=== PATIENT | female | born 1945 | race Caucasian/White ===

== ENCOUNTER 2024-06-15 11:03 | Inpatient (IN) | payer BC, MEDICARE, OTHER ==
[~2024-06-15] VITALS: Ht 162.6 cm; Wt 122.2 kg
[2024-06-15] MEDS: ONDANSETRON HCL 4 MG/2 ML VIAL IV ONE (11:53)
--- NOTE | 2024-06-15 11:55 | ED.PDOC ---
Back pain HPI HPI Comments 79Y F with PMHx HTN, CKD, and hypothyroidism presents to ED for chief complaint back pain. Per pt's son, pt has L3-L5 deterioration and collapse as well as rt hip and rt knee arthritis, and torn ligaments in the rt knee. Pt denies fecal for urinary incontinence. Pt admits to constipation. Pt is being followed by Dr. Worthington and had an appt last week where she was told to go to the ER if the back pain became unbearable. Pt is currently taking [place] but has not felt relief, in fact she states the pain is more severe. Pt had MRI done last month. Per pt, Dr. Worthington's plan is to do back surgery. No known allergies. Chief Complaint: Back Pain Time Seen by MD: 11:36 Reviewed Notes: Medications, Allergies Allergies: Coded Allergies: NO KNOWN ALLERGIES (Unverified , 06/15/24) Information Source: Patient, Relative (son) Mode of Arrival: Wheelchair Timing: Weeks Duration: Since onset Location of Back pain: (B) Lower back Severity: Severe Quality: Sharp Onset: Other Circumstance: Other History of: Chronic Back Pain Modifying Factors: Nothing Associated signs and symptoms: Numbness:(R) Foot, Numbness:(L) Foot, Numbness:(R) Leg, Numbness:(L) Leg Past Medical History PAST MEDICAL HISTORY: CKF, HTN, Thyroid Surgical History: Unknown CADD OPERATOR History: No Pertinent CADD OPERATOR History Family History Family History: Unknown Social History Smoker: Non-Smoker Alcohol: Denies ETOH Use Drugs: Denies Drug Use Lives In: Home Constitutional: denies: chills, diaphoresis, fatigue, fever, malaise, sweats, weakness, others EENTM: denies: blurred vision, double vision, ear bleeding, ear discharge, ear drainage, ear pain, ear ringing, eye pain, eye redness, hearing loss, mouth pain, mouth swelling, nasal discharge, nose bleeding, nose congestion, nose pain, photophobia, tearing, throat pain, throat swelling, voice changes, others Respiratory: denies: cough, hemoptysis, orthopnea, SOB at rest, shortness of breath, SOB with excertion, stridor, wheezing, others Cardiovascular: denies: chest pain, dizzy spells, diaphoresis, Dyspnea on exertion, edema, irregular heart beat, left arm pain, lightheadedness, palpitations, PND, syncope, others Gastrointestinal: reports: constipated; denies: abdomen distended, abdominal pain, blood streaked bowels, diarrhea, dysphagia, difficulty swallowing, hematemesis, melena, nausea, poor appetite, poor fluid intake, rectal bleeding, rectal pain, vomiting, others Genitourinary: denies: abnormal vagina bleeding, burning, dyspareunia, dysuria, flank pain, frequency, hematuria, incontinence, pain, , vagina discharge, urgency, others Neurological: reports: left sided numbness, right sided numbness; denies: dizziness, fainting, headache, left sided weakness, numbness, paresthesia, pre- existing deficit, right sided weakness, seizure, speech problems, tingling, tremors, weakness, others Musculoskeletal: reports: back pain, joint pain (hips, rt knee); denies: gout, joint swelling, muscle pain, muscle stiffness, neck pain, others Integumetry: denies: bruises, change in color, change in hair/nails, dryness, laceration, lesions, lumps, rash, wounds, others Allergic/Immunocompromised: denies: Difficulty Healing, Frequent Infections, Hives, Itching, others Hematologic/Lymphatic: denies: anemia, blood clots, easy bleeding, easy bruising, swollen glands, others Endocrine: denies: excessive hunger, excessive sweating, excessive thirst, excessive urination, flushing, intolerance to cold, intolerance to heat, unexplained weight gain, unexplained weight loss, others Psychiatric: denies: anxiety, bipolar disorder, depression, hopeless, panic disorder, schizophrenia, sleepless, suicidal, others All Other Systems: Reviewed and Negative Physical Exam General Appearance: Mild Distress HEENT: PERRL/EOMI Neck: Full Range of Motion, Normal Inspection, Supple Respiratory: Lungs Clear, No Accessory Muscle Use, No Respiratory Distress, Normal Breath Sounds Cardiovascular: No Edema, No JVD, Regular Rate/Rhythm Breast Exam: Deferred Gastrointestinal: Non Tender, Soft Genitalia: Deferred Pelvic: Deferred Rectal: Deferred Extremities: Leg edema, Normal inspection, Normal range of motion, Non-tender, Pedal edema, Other (Lumbar midline and paraspinal tenderness to palpation. Exquisite pain with movement.) Neurologic: Alert, No Motor Deficits, Normal Affect, Normal Mood, No Sensory Deficits Cerebellar Function: NOT DONE Reflexes: NOT DONE Skin: Dry, Normal Color, Warm Peripheral Pulses: 2+ dorsalis pedis (R), 2+ dorsalis pedis (L) Lymphatic: NOT DONE Was a procedure done? Was a procedure done?: No Back Pain Differential Dx Differential Diagnosis: Musculoskeletal Pain, Other (Disc disease, other neuropathic pain, among others) X-Ray, Labs, Meds, VS Vital Signs Date Time Temp Pulse Resp B/P (MAP) Pulse Ox O2 Delivery O2 Flow Rate FiO2 06/15/24 19:40 72 19 96 Nasal Cannula* 2 28 06/15/24 19:40 97.9 72 19 127/98 (108) 96 97.9 06/15/24 18:00 64 14 131/56 (81) 97 06/15/24 16:00 64 16 106/57 (73) 96 06/15/24 15:22 77 14 97 Room Air* 0 21 06/15/24 15:22 77 16 121/68 (85) 97 06/15/24 14:04 80 20 113/65 06/15/24 14:00 98.2 92 20 111/59 (76) 96 98.2 06/15/24 13:36 82 16 112/62 06/15/24 13:00 76 16 98 Room Air* 0 21 06/15/24 12:33 74 16 103/52 06/15/24 11:57 84 20 106/61 06/15/24 11:57 84 20 106/61 (76) 96 06/15/24 11:29 98.9 86 19 113/46 (68) 98 06/15/24 11:21 89 Lab Test 06/15/24 19:55 06/15/24 11:54 Range/Units Urine Color Light-yellow Yellow Urine Clarity Clear Clear Urine pH 6.0 5.0-9.0 Urine Specific [place] 1.012 1.001-1.035 Urine Protein Negative Negative Urine Ketones Negative Negative Urine Blood Negative Negative /uL Urine Nitrite Negative Negative Urine Bilirubin Negative Negative Urine Urobilinogen Normal Negative mg/dL Urine Leukocyte Esterase Negative Negative /uL Urine RBC <1 0 - 4 /hpf Urine WBC 1 0 - 5 /hpf Urine Squamous Epithelial Cells Few <5 /hpf Urine Bacteria None seen None Seen /hpf Urine Glucose Normal Normal mg/dL White Blood Count 11.5 H 4.4-10.8 10^3/uL Red Blood Count 4.33 4.0-5.20 10^6/uL Hemoglobin 12.2 12.2-16.2 g/dL Hematocrit 37.2 36.0-46.0 % Mean Corpuscular Volume 85.9 80.0-100.0 fL Mean Corpuscular Hemoglobin 28.3 28.0-32.0 pg Mean Corpuscular Hemoglobin Concent 32.9 32.0-36.0 g/dL Red Cell Distribution Width 14.4 H 11.8-14.3 % Platelet Count 293 140-450 10^3/uL Mean Platelet Volume 7.8 6.9-10.8 fL Neutrophils (%) (Auto) 83.4 H 37.0-80.0 % Lymphocytes (%) (Auto) 8.1 L 10.0-50.0 % Monocytes (%) (Auto) 7.0 0.0-12.0 % Eosinophils (%) (Auto) 0.9 0.0-7.0 % Basophils (%) (Auto) 0.6 0.0-2.0 % Neutrophils # (Auto) 9.6 H 1.6-8.6 10 ^3/uL Lymphocytes # (Auto) 0.9 0.4-5.4 10 ^3/uL Monocytes # (Auto) 0.8 0-1.3 10 ^3/uL Eosinophils # (Auto) 0.1 0-0.8 10 ^3/uL Basophils # (Auto) 0.1 0-0.2 10 ^3/uL Nucleated Red Blood Cells 0.0 % Sodium Level 137 136-145 mmol/L Potassium Level 3.5 3.5-5.1 mmol/L Chloride Level 101 98-107 mmol/L Carbon Dioxide Level 26 20-31 mmol/L Anion Gap 10 5-15 Blood Urea Nitrogen 31 H 9-23 mg/dL Creatinine 1.18 H 0.550-1.02 mg/dL Glomerular Filtration Rate Calc 47 >90 mL/min BUN/Creatinine Ratio 26.3 H 10.0-20.0 Serum Glucose 129 H 74-106 mg/dL Calcium Level 11.5 H 8.7-10.4 mg/dL Current Medications Medications (Trade) Dose Ordered Sig/Nalini Route Start Time Stop Time Status Last Admin Morphine Sulfate 4 mg ONCE ONCE IV 06/15/24 11:45 06/15/24 11:46 DC 06/15/24 11:57 Ondansetron HCl (Zofran) 4 mg ONCE ONCE IV 06/15/24 11:45 06/15/24 11:46 DC 06/15/24 11:53 Hydromorphone HCl (Dilaudid Injection) 1 mg ONCE ONCE IV 06/15/24 13:00 06/15/24 13:01 DC 06/15/24 13:36 Methocarbamol (Robaxin) 1,000 mg ONCE ONCE PO 06/15/24 14:00 06/15/24 14:40 DC 06/15/24 14:00 X-Ray, Labs, Meds, VS Comment 79Y F with PMHx HTN, CKD, hypothyroidism chronic back pain due to presumed degenerative disc disease complaining of severe back pain despite taking L[place] and other pain medications at home. Patient was advised by her back surgeon to come to the ER if pain persisted. Vitals unremarkable Exam remarkable for lumbar midline and paraspinal tenderness and severe pain with movement CBC remarkable for WBC 11.5, basic metabolic panel remarkable for BUN 31, creatinine 1.18, calcium 11.5, no other abnormalities of acute significance Patient treated with the following in the ED: Morphine 4 mg IV, Zofran 4 mg IV, Dilaudid 1 mg IV, Robaxin 1 g p.o. On re-evaluation, patient states at rest her pain has improved, but she is still experiencing severe pain with movement. Plan is to admit the patient for pain control and evaluation by Dr. Worthington. Case discussed with FRAN Rothman, who will admit the patient. MRI of the lumbar spine was ordered for the morning. Time of 1ST Reevaluation: 12:06 Reevaluation 1ST: Unchanged Time of 2ND Reevaluation: 13:46 Reevaluation 2ND: Improved Patient Education/Counseling: Diagnosis, Treatment Family Education/Counseling: Diagnosis, Treatment Departure 1 Departure Time of Disposition: 13:46 Impression: Primary Impression: Intractable back pain Disposition: 09 ADMITTED INPATIENT Admit to: Med Surg Condition: Fair Critical Care Note Critical Care Time?: No Stability Stability form required: No Heart Score Heart Score: Heart Score Response (Comments) Value History N/A 0 EKG N/A 0 Age N/A 0 Risk Factors N/A 0 Troponin N/A 0 Total 0 I personally scribed for JUANY BRO MD ([email or web address]) on 06/15/24 at 11:55. Electronically submitted by Annie Last ([email or web address]). JUANY BOR MD Jun 15, 2024 11:55
[2024-06-15] MEDS: MORPHINE SULFATE 4 MG/ML SYR/VIAL IV ONE (11:57)
[2024-06-15 12:07] LABS: Basophils # (auto) 0.1 10 ^3/uL (0-0.2); Basophils % (auto) 0.6 % (0.0-2.0); Eosinophils # (auto) 0.1 10 ^3/uL (0-0.8); Eosinophils % (auto) 0.9 % (0.0-7.0); Hematocrit 37.2 % (36.0-46.0); Hemoglobin 12.2 g/dL (12.2-16.2); Lymphocytes # (auto) 0.9 10 ^3/uL (0.4-5.4); Lymphocytes % (auto) 8.1 % (10.0-50.0); Mean Corpuscular Hemoglobin 28.3 pg (28.0-32.0); Mean Corpuscular Hgb Conc. 32.9 g/dL (32.0-36.0); Mean Corpuscular Volume 85.9 fL (80.0-100.0); Monocytes # (auto) 0.8 10 ^3/uL (0-1.3); Neutrophils # (auto) 9.6 10 ^3/uL (1.6-8.6); Neutrophils % (auto) 83.4 % (37.0-80.0); Platelet Count (auto) 293 10^3/uL (140-450); Red Blood Cells 4.33 10^6/uL (4.0-5.20); Red Cell Distribution Width 14.4 % (11.8-14.3); White Blood Cell 11.5 10^3/uL (4.4-10.8)
[2024-06-15 12:19] LABS: Chloride 101 mmol/L (98-107); Potassium 3.5 mmol/L (3.5-5.1); Sodium 137 mmol/L (136-145)
[2024-06-15 12:20] LABS: Anion Gap 10 (5-15); Carbon Dioxide 26 mmol/L (20-31)
[2024-06-15 12:21] LABS: Calcium 11.5 mg/dL (8.7-10.4)
[2024-06-15 12:25] LABS: BUN/Creatinine Ratio 26.3 (10.0-20.0); Blood Urea Nitrogen 31 mg/dL (9-23); Glucose 129 mg/dL (74-106)
[2024-06-15 13:00] VITALS: PULSE 76; RESP 16; O2SAT 98
[2024-06-15] MEDS: HYDROmorphone HCL 2 MG/ML VL/or syr IV ONE ×2 (13:36→21:44)
[2024-06-15] MEDS: METHOCARBAMOL 500 MG TAB PO ONE (14:00)
[2024-06-15 15:22] VITALS: PULSE 77; RESP 14; O2SAT 97
[2024-06-15 19:40] VITALS: PULSE 72; RESP 19; O2SAT 96
[2024-06-15 20:01] LABS: Urine Bacteria None Seen /hpf (None Seen)
[2024-06-15 20:08] LABS: Urine Blood Negative /uL (Negative); Urine Clarity Clear (Clear); Urine Color Light-Yellow (Yellow); Urine Protein, UAD Negative (Negative); Urine Specific Gravity 1.012 (1.001-1.035); Urine Urobilinogen Normal (Negative); Urine WBC 1 /hpf (0 - 5)
[2024-06-15] MEDS ORDERED: ACETAMINOPHEN 325 MG TAB PO PRN (21:45)
[2024-06-15] MEDS ORDERED: ONDANSETRON HCL 4 MG/2 ML VIAL IV PRN (21:45)
[2024-06-15] MEDS ORDERED: MORPHINE SULFATE INJ 2 MG/ml SYRG IV PRN (21:45)
[2024-06-15 23:21] VITALS: BP 126/63; PULSE 80; TEMP 98.3; O2SAT 99
[2024-06-15 23:44] VITALS: PULSE 80; RESP 18; O2SAT 99
[2024-06-16] VITALS (7 sets, daily range): BP systolic 96–132; BP diastolic 55–66; PULSE 71–91; RESP 15–20; TEMP 97.5–98.4; O2SAT 96–99
--- NOTE | 2024-06-16 00:51 | DVHHP2 ---
Admitting Diagnosis: Intractable back pain History of Present Illness History Source: Patient Exam Limitations: No limitations HPI Mrs. Pastora Briones is an 79 year old female with a history of HTN, CKD, and hypothyroidism presents with a chief complaint of back pain. Reported in ED by patient son, patient has a L3-L5 deterioration and collapse as well as rt hip and rt knee arthritis, and torn ligaments in the rt knee. Pt denies fecal or urinary incontinence. Patient admits to constipation. Patient reports she is being followed by Dr. Worthington and had an appointment last week where she was told to go to the ER if the back pain became unbearable. Pt is currently taking [place] but has not felt relief, in fact she states the pain is more severe. Dr. Worthington was contacted and requested MRI lumbar spine will see patient in am. Patient denies fevers, chills, abdominal pain, diarrhea, lower extremity numbness, urinary incontinence. Home Meds Reported Medications Latanoprost (LATANOPROST) 0.005 % Tracy, 1 DROP EACHEYE QPM, #7.5 ML 3 Refills 06/16/24 Senna (Senokot) 8.6 Mg Tab, 8.6 MG PO DAILY@DINNER, TAB 06/16/24 Hydrocodone-Acetaminophen (Hydrocodone Bitartrate/AC 7.5-325 mg) 1 Tab Tab, 1 TAB PO TID, TAB 06/16/24 Trazodone Hcl (Trazodone Hcl) 50 Mg Tab, 50 MG PO HS, MG 06/16/24 Pantoprazole Sodium Sesquihydr (Protonix) 40 Mg Tab, 40 MG PO DAILY, #30 TAB 06/16/24 Sertraline Hcl (Sertraline Hcl) 50 Mg Tab, 100 MG PO DAILY for 30 Days, MG 06/16/24 Gabapentin (Gabapentin) 300 Mg Cap, 300 MG PO TID for 30 Days, MG 06/16/24 Furosemide (Furosemide) 20 Mg Tab, 20 MG PO DAILY for 30 Days, MG 06/16/24 Triamterene (Triamterene) 50 Mg Cap, 50 MG PO DAILY, CAP 06/16/24 Levothyroxine Sodium (Levothyroxine Sodium) 75 Mcg Tab, 1 TAB PO DAILY, #30 TAB 5 Refills 06/16/24 Past Medical History Cardiac: HTN Pulmonary: No pertinent Hx Central Nervous System: No pertinent Hx GI: No pertinent Hx Hemotology/Oncology: No pertinent Hx Hepatobiliary: No pertinent Hx Psychiatric: No pertinent Hx Musculoskeletal: No pertinent Hx Rheumotologic: No pertinent Hx Infectious Disease: No peritnent Hx ENT: No pertinent Hx Renal/: CKD Endocrine: Hypothyroidism Dermatology: No pertinent Hx Others L3-L5 deterioration and collapse as well as rt hip and rt knee arthritis, and torn ligaments in the rt knee Smoker: No Hx (Negative) Alocohol: None Drugs: None Domestic Violence: Neg Review of Systems Constitutional: No symptom reported Ears, Nose, & Throat: No symptom reported Eyes: No symptom reported Pulmonary/Respiratory: No symptom reported Cardiovascular: No symptom reported Gastrointestinal: No symptom reported Genitourinary: No symptom reported Musculoskeletal: Back pain Skin: No symptom reported Psychiatric: No symptom reported Endocrine: No symptom reported Hemotologic/Lymphatic: No symptom reported H&P Exam Vital Signs Vital Signs Date Time Temp Pulse Resp B/P (MAP) Pulse Ox O2 Delivery O2 Flow Rate FiO2 06/15/24 23:21 98.3 80 126/63 (84) 99 98.3 06/15/24 22:20 15 06/15/24 19:40 Nasal Cannula* 2 28 General Appeara: Well developed, Well nourished Head Exam: Normal inspection Neck Exam: Normal inspection, Non-tender, Normal alignment Eye Exam: bilateral eye Normal inspection, bilateral eye PERRL, bilateral eye EOMI Ear Exam: bilateral ear Auricle normal Nasal Exam: Normal inspection Mouth: Normal Inspection Pulmonary/Respiratory: Normal inspection, Normal breath sounds, Chest non- tender, Lungs clear Cardiovascular/Chest: Normal inspection, Regular rate, Normal Rhythm Peripheral Pulses: 2+ dorsalis pedis (R), 2+ dorsalis pedis (L), 2+ Radial (R), 2+ Radial (L) Abdominal Exam: Normal bowel sounds, Soft, No tenderness Back Exam: Decreased range of motion, Vertebral tenderness CLAMP FORKLIFT OPERATOR Exam: Normal hearing, Normal speech, PERRL Neuro/Mental St: Alert, Oriented Appearance: Appropriate appearance, Appropriate insight Eye contact/ Speech: Cooperative, Good eye contact, Normal speech Thoughts/Psych: Normal thought pattern Skin Exam: Normal inspection, Normal color, Warm/dry Labs/Xrays Labs Test 06/15/24 19:55 06/15/24 11:54 Range/Units Urine Color Light-yellow Yellow Urine Clarity Clear Clear Urine pH 6.0 5.0-9.0 Urine Specific [place] 1.012 1.001-1.035 Urine Protein Negative Negative Urine Ketones Negative Negative Urine Blood Negative Negative /uL Urine Nitrite Negative Negative Urine Bilirubin Negative Negative Urine Urobilinogen Normal Negative mg/dL Urine Leukocyte Esterase Negative Negative /uL Urine RBC <1 0 - 4 /hpf Urine WBC 1 0 - 5 /hpf Urine Squamous Epithelial Cells Few <5 /hpf Urine Bacteria None seen None Seen /hpf Urine Glucose Normal Normal mg/dL White Blood Count 11.5 H 4.4-10.8 10^3/uL Red Blood Count 4.33 4.0-5.20 10^6/uL Hemoglobin 12.2 12.2-16.2 g/dL Hematocrit 37.2 36.0-46.0 % Mean Corpuscular Volume 85.9 80.0-100.0 fL Mean Corpuscular Hemoglobin 28.3 28.0-32.0 pg Mean Corpuscular Hemoglobin Concent 32.9 32.0-36.0 g/dL Red Cell Distribution Width 14.4 H 11.8-14.3 % Platelet Count 293 140-450 10^3/uL Mean Platelet Volume 7.8 6.9-10.8 fL Neutrophils (%) (Auto) 83.4 H 37.0-80.0 % Lymphocytes (%) (Auto) 8.1 L 10.0-50.0 % Monocytes (%) (Auto) 7.0 0.0-12.0 % Eosinophils (%) (Auto) 0.9 0.0-7.0 % Basophils (%) (Auto) 0.6 0.0-2.0 % Neutrophils # (Auto) 9.6 H 1.6-8.6 10 ^3/uL Lymphocytes # (Auto) 0.9 0.4-5.4 10 ^3/uL Monocytes # (Auto) 0.8 0-1.3 10 ^3/uL Eosinophils # (Auto) 0.1 0-0.8 10 ^3/uL Basophils # (Auto) 0.1 0-0.2 10 ^3/uL Nucleated Red Blood Cells 0.0 % Sodium Level 137 136-145 mmol/L Potassium Level 3.5 3.5-5.1 mmol/L Chloride Level 101 98-107 mmol/L Carbon Dioxide Level 26 20-31 mmol/L Anion Gap 10 5-15 Blood Urea Nitrogen 31 H 9-23 mg/dL Creatinine 1.18 H 0.550-1.02 mg/dL Glomerular Filtration Rate Calc 47 >90 mL/min BUN/Creatinine Ratio 26.3 H 10.0-20.0 Serum Glucose 129 H 74-106 mg/dL Calcium Level 11.5 H 8.7-10.4 mg/dL Assessment/Plan Problem List: (1) Intractable back pain Plan 79 yo female with known history of hypertension, CKD, hypothyroidism, L3-L5 deterioration and collapse, right knee torn ligaments presents to the hospital with unrelieved back pain. 1. Intractable back pain -Admit to telemetry -Spinal Orthopedic surgeon consulted -MRI lumbar spine -Analgesics as needed for pain management -Cardiac diet Discussed all above with patient who verbalized agreement and understanding of care plan. All questions were answered. Discussed assessment and care plan with supervising MD. Plan discussed with: Patient, Other Code Visit Code Visit Total Time (mins): 45 Additional Comments Additional Comments Additional Comments Patient is seen and evaluated and admitted by nurse practitioner regular morning. Patient's chart is reviewed and evaluated by me today. I agree with the nurse practitioner's evaluation, documentation, assessment and care plan as outlined. ROSA HARRIS Jun 16, 2024 00:51 ROBBIN REDDING MD Jun 16, 2024 18:46
[2024-06-16] MEDS: HYDROcodone-ACET 5/325MG TAB PO PRN (00:54)
[2024-06-16] MEDS ORDERED: GABA-1250 PO (01:26)
[2024-06-16] MEDS ORDERED: LATA0.008 EACHEYE (01:26)
[2024-06-16] MEDS ORDERED: TRAZ-227 PO (01:26)
[2024-06-16] MEDS ORDERED: SENN-58 PO (01:26)
[2024-06-16] MEDS ORDERED: HYDR-4795 PO (01:26)
[2024-06-16] MEDS ORDERED: PANT40TA2 PO (01:26)
[2024-06-16] MEDS ORDERED: TRIA50CA43 PO (01:26)
[2024-06-16] MEDS ORDERED: FURO20TA3 PO (01:26)
[2024-06-16] MEDS ORDERED: SERT-206 PO (01:26)
[2024-06-16] MEDS ORDERED: LEVO75TA6 PO (01:26)
--- NOTE | 2024-06-16 06:36 | ECG ---
[facility] Test Date: 2024-06-15 Test Time: 11:21:09 Pat Name: GIAN SULLIVAN Department: ER Room: 0250T A Gender: F Project Facilitator: FATMATA : [id number] Requested By: EMERGENCY EMERGENCY Order Number: [id number] Reading MD: Victorino Benson Measurements Intervals [place] Rate: 89 P: 67 DE: 187 QRS: 37 QRSD: 98 T: 0 QT: 348 QTc: 424 Interpretive Statements Sinus rhythm Borderline low voltage, extremity leads Borderline repolarization abnormality Electronically Signed On 06-20-2024 16:58:24 PST by Victorino Benson Please click the below link to view image of tracing.
[2024-06-16] MEDS: LEVOTHYROXINE SODIUM 50 MCG TAB PO SCH (06:41)
[2024-06-16] MEDS: GABAPENTIN 300 MG CAP PO SCH (06:41)
[2024-06-16] MEDS: LORazepam 2MG/ML-1ML VIAL IV ONE (09:12)
[2024-06-16] MEDS ORDERED: PATIENTS OWN MEDICATION (Levothyroxine Sodium 1 TAB) PO SCH (10:00)
--- NOTE | 2024-06-16 10:16 | DVH ---
MRI LUMBAR SPINE WO CONTRAST INDICATION: LBP EXAM DATE: 06/16/2024 09:21 AM COMPARISON: 02/05/24 PROCEDURE: Using a 1.5 Gema scanner, multisequence multiplanar imaging of the lumbar spine was obtai amanda. FINDINGS: There are five lumbar vertebral segments. The lumbar spine shows anatomic alignment with pr eservation of vertebral body heights. The marrow signal is heterogeneous with multilevel discogenic e ndplate changes throughout. The intervertebral discs appear decreased in height and signal. The dista l spinal cord is normal in signal and morphology and the conus medullaris terminates at L1. The thais morro soft tissues are normal. On axial images: At L1-2, there is a posterior disc bulge, no thecal sac narrowing, mild bilateral neural foramina tim rowing, and facet joints appear degenerative. At L2-3, there is a posterior disc osteophyte complex, no thecal sac narrowing, severe bilateral neur al foramina narrowing, and facet joints appear degenerative. At L3-4, there is a posterior disc osteophyte complex, no thecal sac narrowing, severe bilateral neur al foramina narrowing, and facet joints appear degenerative. At L4-5, there is a posterior disc bulge, no thecal sac narrowing, moderate bilateral neural foramina narrowing, and facet joints appear degenerative. At L5-S1, there is a posterior disc bulge, no thecal sac narrowing, moderate bilateral neural foramin a narrowing, and facet joints appear degenerative. IMPRESSION: Multilevel degenerative MRI findings of the lumbar spine with severe bilateral neural foramina narrow ing worse at L2-3, L3-4.
[2024-06-16] MEDS: SERTRALINE HCL 50 MG TAB PO SCH (10:21)
[2024-06-16] MEDS: ENOXAPARIN SOD 40 MG/0.4 ML SYRINGE SC SCH (10:21)
[2024-06-16] MEDS: POLYETHYLENE GLYCOL 17 GM PWDR PO SCH (10:22)
[2024-06-16] MEDS: FAMOTIDINE 20 MG TAB PO SCH ×2 (10:24→21:07)
[2024-06-16] MEDS: FUROSEMIDE 20 MG TAB PO SCH (10:35)
[2024-06-16] MEDS: DexAMETHasone SOD PHOS 4 MG/1ML SDV INJ IV SCH (13:49)
--- NOTE | 2024-06-16 18:22 | DVHINCON2 ---
Consultation - Spinal Surgery Date Seen: Jun 16, 2024 Referring Physician Reason for Consultation SEVERE INCAPACITATING BACK PAIN GONG DOWN LEGS TO THE FEET TO THE POINT THAT SHE IS UNABLE TO PERFORM ACTIVITIES OF DAILY LIVING History of Present Illness History of Present Illness tHIS IS AN UNFORTUNATE LADY FROM MY OFFICE THAT IS BEING SET UP FOR LUMBAR SPINE SURGERY WAS UNABLE TO TAKE THE PAIN TO THE POINT THAT SHE WAS ADMITTED TO THE HOSPITAL. 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 AND INJECTIONS WHAT IS ORE WORRISOME IS THE PROGRESSIVE WEAKNESS OF THE LEGS Allergies and medications Allergies: Coded Allergies: NO KNOWN ALLERGIES (Unverified , 06/15/24) Home Meds Reported Medications Latanoprost (LATANOPROST) 0.005 % Tracy, 1 DROP EACHEYE QPM, #7.5 ML 3 Refills 06/16/24 Senna (Senokot) 8.6 Mg Tab, 8.6 MG PO DAILY@DINNER, TAB 06/16/24 Hydrocodone-Acetaminophen (Hydrocodone Bitartrate/AC 7.5-325 mg) 1 Tab Tab, 1 TAB PO TID, TAB 06/16/24 Trazodone Hcl (Trazodone Hcl) 50 Mg Tab, 50 MG PO HS, MG 06/16/24 Pantoprazole Sodium Sesquihydr (Protonix) 40 Mg Tab, 40 MG PO DAILY, #30 TAB 06/16/24 Sertraline Hcl (Sertraline Hcl) 50 Mg Tab, 100 MG PO DAILY for 30 Days, MG 06/16/24 Gabapentin (Gabapentin) 300 Mg Cap, 300 MG PO TID for 30 Days, MG 06/16/24 Furosemide (Furosemide) 20 Mg Tab, 20 MG PO DAILY for 30 Days, MG 06/16/24 Triamterene (Triamterene) 50 Mg Cap, 50 MG PO DAILY, CAP 06/16/24 Levothyroxine Sodium (Levothyroxine Sodium) 75 Mcg Tab, 1 TAB PO DAILY, #30 TAB 5 Refills 06/16/24 Review of systems Review of Systems: HEENT:Normal, CVS:Normal, RESPIRATORY:Normal, GI:Normal, :Normal, MSK:Normal, NEURO:Normal Examination Vital signs Vital Signs Date Time Temp Pulse Resp B/P (MAP) Pulse Ox O2 Delivery O2 Flow Rate FiO2 06/16/24 17:00 98.0 82 17 99/61 (74) 96 98.0 06/16/24 08:00 Nasal Cannula* 3 32 Medications Current Medications Medications (Trade) Dose Ordered Sig/Nalini Route PRN Reason Start Time Stop Time Status Last Admin Ondansetron HCl (Zofran) 4 mg Q6HPRN PRN IV NAUSEA / VOMITING 06/15/24 21:45 Acetaminophen (Tylenol Tablet) 650 mg Q6HPRN PRN PO TEMP GREATER THAN 100.4 06/15/24 21:45 Acetaminophen/ Hydrocodone Bitart ([place] 5/325MG Tab) 1 tab Q6HPRN PRN PO PAIN SCALE 1 THRU 6 06/15/24 21:45 06/16/24 13:49 Enoxaparin Sodium (Lovenox) 40 mg DAILY SC 06/16/24 10:00 06/16/24 10:21 Famotidine (Pepcid Tablet) 20 mg DAILY PO 06/16/24 10:00 06/16/24 12:11 DC 06/16/24 10:24 Morphine Sulfate 2 mg Q4HPRN PRN IV PAIN SCALE 7 THRU 10 06/15/24 21:45 Sennosides (Senokot Tablet) 17.2 mg HS PO 06/16/24 22:00 Polyethylene Glycol (Miralax 17GM Powder) 17 gm DAILY PO 06/16/24 10:00 06/16/24 10:22 Furosemide (Lasix Tablet) 20 mg DAILY PO 06/16/24 10:00 06/16/24 10:35 Gabapentin (Neurontin Capsule) 300 mg TID PO 06/16/24 06:00 06/16/24 13:47 Latanoprost (Xalatan) 1 drop QPM EACHEYE 06/16/24 18:00 Sertraline HCl (Zoloft) 100 mg DAILY PO 06/16/24 10:00 06/16/24 10:21 Trazodone HCl (Desyrel) 50 mg HS PO 06/16/24 22:00 Patient Own Medication 1 tab DAILY PO 06/16/24 10:00 UNV Levothyroxine Sodium (Synthroid Tablet) 75 mcg DAILY@0700 PO 06/16/24 07:00 06/16/24 06:41 Famotidine (Pepcid Tablet) 20 mg BID PO 06/16/24 22:00 Dexamethasone Sodium Phosphate (Decadron Injection) 4 mg Q8HR IV 06/16/24 14:00 06/16/24 13:49 Laboratory Labs Test 06/15/24 19:55 06/15/24 11:54 Range/Units Urine Color Light-yellow Yellow Urine Clarity Clear Clear Urine pH 6.0 5.0-9.0 Urine Specific [place] 1.012 1.001-1.035 Urine Protein Negative Negative Urine Ketones Negative Negative Urine Blood Negative Negative /uL Urine Nitrite Negative Negative Urine Bilirubin Negative Negative Urine Urobilinogen Normal Negative mg/dL Urine Leukocyte Esterase Negative Negative /uL Urine RBC <1 0 - 4 /hpf Urine WBC 1 0 - 5 /hpf Urine Squamous Epithelial Cells Few <5 /hpf Urine Bacteria None seen None Seen /hpf Urine Glucose Normal Normal mg/dL White Blood Count 11.5 H 4.4-10.8 10^3/uL Red Blood Count 4.33 4.0-5.20 10^6/uL Hemoglobin 12.2 12.2-16.2 g/dL Hematocrit 37.2 36.0-46.0 % Mean Corpuscular Volume 85.9 80.0-100.0 fL Mean Corpuscular Hemoglobin 28.3 28.0-32.0 pg Mean Corpuscular Hemoglobin Concent 32.9 32.0-36.0 g/dL Red Cell Distribution Width 14.4 H 11.8-14.3 % Platelet Count 293 140-450 10^3/uL Mean Platelet Volume 7.8 6.9-10.8 fL Neutrophils (%) (Auto) 83.4 H 37.0-80.0 % Lymphocytes (%) (Auto) 8.1 L 10.0-50.0 % Monocytes (%) (Auto) 7.0 0.0-12.0 % Eosinophils (%) (Auto) 0.9 0.0-7.0 % Basophils (%) (Auto) 0.6 0.0-2.0 % Neutrophils # (Auto) 9.6 H 1.6-8.6 10 ^3/uL Lymphocytes # (Auto) 0.9 0.4-5.4 10 ^3/uL Monocytes # (Auto) 0.8 0-1.3 10 ^3/uL Eosinophils # (Auto) 0.1 0-0.8 10 ^3/uL Basophils # (Auto) 0.1 0-0.2 10 ^3/uL Nucleated Red Blood Cells 0.0 % Sodium Level 137 136-145 mmol/L Potassium Level 3.5 3.5-5.1 mmol/L Chloride Level 101 98-107 mmol/L Carbon Dioxide Level 26 20-31 mmol/L Anion Gap 10 5-15 Blood Urea Nitrogen 31 H 9-23 mg/dL Creatinine 1.18 H 0.550-1.02 mg/dL Glomerular Filtration Rate Calc 47 >90 mL/min BUN/Creatinine Ratio 26.3 H 10.0-20.0 Serum Glucose 129 H 74-106 mg/dL Calcium Level 11.5 H 8.7-10.4 mg/dL Examination: HEENT:Normal, NECK:Normal, CVS:Normal, ABDOMEN:Normal, MSK:Normal Problem List/Assessment/Plan Problems: (1) Sacroiliitis (2) Intractable back pain Assessment and Plan Lumbar spinal stenosis with incapacitating neuro genic claudication She is having progressive neurologic deficits. I will get cardiology clearance and set up lumbar spine surgery Plan discussed with Plan discussed with: Patient TORIBIO HYLTON MD Jun 16, 2024 18:22
[2024-06-16] MEDS: LATANOPROST 0.005 % OPTH(EYE) SOL 2.5ML EACHEYE SCH (18:30)
[2024-06-16] MEDS: SENNA 8.6 MG TAB PO SCH (21:05)
[2024-06-16] MEDS: traZODone HCL 50 MG TAB PO SCH (21:06)
[2024-06-17] VITALS (8 sets, daily range): BP systolic 111–145; BP diastolic 48–66; PULSE 35–89; RESP 17–20; TEMP 97.8–98.4; O2SAT 91–97
--- NOTE | 2024-06-17 12:25 | DVHINCON2 ---
Date of service: Jun 17, 2024 History of Present Illness Mrs. Pastora Briones is an 79 year old female with a history of HTN, CKD, and hypothyroidism presents with a chief complaint of back pain. Reported in ED by patient son, patient has a L3-L5 deterioration and collapse as well as rt hip and rt knee arthritis, and torn ligaments in the rt knee. Pt denies fecal or urinary incontinence. Patient admits to constipation. Patient reports she is being followed by Dr. Worthington and had an appointment last week where she was told to go to the ER if the back pain became unbearable. Pt is currently taking Randolph but has not felt relief, in fact she states the pain is more severe. Dr. Worthington was contacted and requested MRI lumbar spine will see patient in am. Patient denies fevers, chills, abdominal pain, diarrhea, lower extremity numbness, urinary incontinence. Home Meds Reported Medications Latanoprost (LATANOPROST) 0.005 % Tracy, 1 DROP EACHEYE QPM, #7.5 ML 3 Refills 06/16/24 Senna (Senokot) 8.6 Mg Tab, 8.6 MG PO DAILY@DINNER, TAB 06/16/24 Hydrocodone-Acetaminophen (Hydrocodone Bitartrate/AC 7.5-325 mg) 1 Tab Tab, 1 TAB PO TID, TAB 06/16/24 Trazodone Hcl (Trazodone Hcl) 50 Mg Tab, 50 MG PO HS, MG 06/16/24 Pantoprazole Sodium Sesquihydr (Protonix) 40 Mg Tab, 40 MG PO DAILY, #30 TAB 06/16/24 Sertraline Hcl (Sertraline Hcl) 50 Mg Tab, 100 MG PO DAILY for 30 Days, MG 06/16/24 Gabapentin (Gabapentin) 300 Mg Cap, 300 MG PO TID for 30 Days, MG 06/16/24 Furosemide (Furosemide) 20 Mg Tab, 20 MG PO DAILY for 30 Days, MG 06/16/24 Triamterene (Triamterene) 50 Mg Cap, 50 MG PO DAILY, CAP 06/16/24 Levothyroxine Sodium (Levothyroxine Sodium) 75 Mcg Tab, 1 TAB PO DAILY, #30 TAB 5 Refills Past Medical History reviewed Family History: Patient reports no known family medical history. Allergies: Coded Allergies: NO KNOWN ALLERGIES (Unverified , 06/15/24) Home Meds Reported Medications Latanoprost (LATANOPROST) 0.005 % Tracy, 1 DROP EACHEYE QPM, #7.5 ML 3 Refills 06/16/24 Senna (Senokot) 8.6 Mg Tab, 8.6 MG PO DAILY@DINNER, TAB 06/16/24 Hydrocodone-Acetaminophen (Hydrocodone Bitartrate/AC 7.5-325 mg) 1 Tab Tab, 1 TAB PO TID, TAB 06/16/24 Trazodone Hcl (Trazodone Hcl) 50 Mg Tab, 50 MG PO HS, MG 06/16/24 Pantoprazole Sodium Sesquihydr (Protonix) 40 Mg Tab, 40 MG PO DAILY, #30 TAB 06/16/24 Sertraline Hcl (Sertraline Hcl) 50 Mg Tab, 100 MG PO DAILY for 30 Days, MG 06/16/24 Gabapentin (Gabapentin) 300 Mg Cap, 300 MG PO TID for 30 Days, MG 06/16/24 Furosemide (Furosemide) 20 Mg Tab, 20 MG PO DAILY for 30 Days, MG 06/16/24 Triamterene (Triamterene) 50 Mg Cap, 50 MG PO DAILY, CAP 06/16/24 Levothyroxine Sodium (Levothyroxine Sodium) 75 Mcg Tab, 1 TAB PO DAILY, #30 TAB 5 Refills 06/16/24 Current Medications Current Medications Medications (Trade) Dose Ordered Sig/Nalini Route PRN Reason Start Time Stop Time Status Last Admin Sennosides (Senokot Tablet) 17.2 mg HS PO 06/16/24 22:00 06/16/24 21:05 Latanoprost (Xalatan) 1 drop QPM EACHEYE 06/16/24 18:00 Trazodone HCl (Desyrel) 50 mg HS PO 06/16/24 22:00 06/16/24 21:06 Famotidine (Pepcid Tablet) 20 mg BID PO 06/16/24 22:00 06/17/24 10:47 Dexamethasone Sodium Phosphate (Decadron Injection) 4 mg Q8HR IV 06/16/24 14:00 06/17/24 05:35 Acetaminophen/ Hydrocodone Bitart ([place] 5/325MG Tab) 1 tab Q4HP PRN PO PAIN SCALE 1 THRU 6 06/17/24 12:15 Review of Systems 10 pt ros otherwise negative Vital Signs Vital Signs Date Time Temp Pulse Resp B/P (MAP) Pulse Ox O2 Delivery O2 Flow Rate FiO2 06/17/24 10:45 122/56 06/17/24 09:00 97.8 63 20 93 97.8 06/16/24 20:00 Nasal Cannula* 3 32 Physical Exam nad s1 s2 rrr ctab soft nt/nd no edema Labs/Diagnostic Data Labs Test 06/15/24 19:55 06/15/24 11:54 Range/Units Urine Color Light-yellow Yellow Urine Clarity Clear Clear Urine pH 6.0 5.0-9.0 Urine Specific [place] 1.012 1.001-1.035 Urine Protein Negative Negative Urine Ketones Negative Negative Urine Blood Negative Negative /uL Urine Nitrite Negative Negative Urine Bilirubin Negative Negative Urine Urobilinogen Normal Negative mg/dL Urine Leukocyte Esterase Negative Negative /uL Urine RBC <1 0 - 4 /hpf Urine WBC 1 0 - 5 /hpf Urine Squamous Epithelial Cells Few <5 /hpf Urine Bacteria None seen None Seen /hpf Urine Glucose Normal Normal mg/dL White Blood Count 11.5 H 4.4-10.8 10^3/uL Red Blood Count 4.33 4.0-5.20 10^6/uL Hemoglobin 12.2 12.2-16.2 g/dL Hematocrit 37.2 36.0-46.0 % Mean Corpuscular Volume 85.9 80.0-100.0 fL Mean Corpuscular Hemoglobin 28.3 28.0-32.0 pg Mean Corpuscular Hemoglobin Concent 32.9 32.0-36.0 g/dL Red Cell Distribution Width 14.4 H 11.8-14.3 % Platelet Count 293 140-450 10^3/uL Mean Platelet Volume 7.8 6.9-10.8 fL Neutrophils (%) (Auto) 83.4 H 37.0-80.0 % Lymphocytes (%) (Auto) 8.1 L 10.0-50.0 % Monocytes (%) (Auto) 7.0 0.0-12.0 % Eosinophils (%) (Auto) 0.9 0.0-7.0 % Basophils (%) (Auto) 0.6 0.0-2.0 % Neutrophils # (Auto) 9.6 H 1.6-8.6 10 ^3/uL Lymphocytes # (Auto) 0.9 0.4-5.4 10 ^3/uL Monocytes # (Auto) 0.8 0-1.3 10 ^3/uL Eosinophils # (Auto) 0.1 0-0.8 10 ^3/uL Basophils # (Auto) 0.1 0-0.2 10 ^3/uL Nucleated Red Blood Cells 0.0 % Sodium Level 137 136-145 mmol/L Potassium Level 3.5 3.5-5.1 mmol/L Chloride Level 101 98-107 mmol/L Carbon Dioxide Level 26 20-31 mmol/L Anion Gap 10 5-15 Blood Urea Nitrogen 31 H 9-23 mg/dL Creatinine 1.18 H 0.550-1.02 mg/dL Glomerular Filtration Rate Calc 47 >90 mL/min BUN/Creatinine Ratio 26.3 H 10.0-20.0 Serum Glucose 129 H 74-106 mg/dL Calcium Level 11.5 H 8.7-10.4 mg/dL Assessment preop eval morbid obesity HTN back pain Plan/Recommendation check ecg and echo no DM, no tobacco cannot achieve 4 mets, uses walker no hx of PSH Plan discussed with: Patient DARWIN ALICEA MD Jun 17, 2024 12:25
--- NOTE | 2024-06-17 12:43 | DVHSR ---
APPROVED REPORT EXAM: Two-dimensional and M-mode echocardiogram with Doppler and color Doppler. Blood Pressure: 100/60 mmHg INDICATION Pre-Op HTN RISK FACTORS Height: 64, Weight: 217 DIMENSIONS LVDd (3.8-5.7cm)LA (2D)3.6 (1.9-4.0cm)Aortic Root (2.0-3.7cm) EF (%) 51.0 (55-70%)Rt. Atrium3.3 (1.9-4.0cm)Asc. Aorta cm Mitral Valve MitralMitral Stenosis E wave0.84m/sMV Mean GR.mmHg A wave1.05m/sMV Peak GR.mmHg E/A ratio0.82D MVAcm2 DECEL [id number] 1/2 Atzo80wz IVRTmsDop MVA3.39cm2 Aortic Valve Aortic ValveAortic Stenosis V11.19m/Jojo Mean GR.6mmHg V21.78m/Jooj Peak GR.13mmHg LVOT Diameter2.0 (1.8-2.4cm)Doppler AVA2.10cm2 Pulmonic Valve V21.16m/s Tricuspid Valve TR Velocity2.35m/s [id number] Conclusion lvef 55% by visual estimate normal rv function--rv enlarged mild no severe valve abnormalities noted left atrium enlarged
[2024-06-17] MEDS: HYDROcodone-ACET 5/325MG TAB PO PRN (14:26)
[2024-06-17] MEDS ORDERED: FLEET ENEMA(ADULT) 135 ML PR PRN (14:45)
[2024-06-17] MEDS: FLEET ENEMA(ADULT) 135 ML PR ONE (16:00)
--- NOTE | 2024-06-17 16:48 | DVHPN2 ---
Progress Note - Dictate Date Seen: Jun 17, 2024 Medical Necessity Reason Pt with a Central, PICC or Fol: No Subjective She is clinically stable. Has not participated with the physical therapy at. Waiting for Cardiology evaluation. She was tentatively scheduled for lumbar spine surgery by spine surgeon for . vital signs Vital Sign Date Time Temp Pulse Resp B/P (MAP) Pulse Ox O2 Delivery O2 Flow Rate FiO2 06/17/24 13:00 98.2 73 20 125/56 (79) 97 98.2 06/16/24 20:00 Nasal Cannula* 3 32 Total Intake and Output 06/16/24 06/16/24 06/17/24 15:00 23:00 07:00 Intake Total 550 ml 650 ml Balance 550 ml 650 ml medications Current Medications Medications Dose Ordered Sig/Nalini Route Start Time Stop Time Status Last Admin Dose Admin Ondansetron HCl 4 mg Q6HPRN PRN IV 06/15/24 21:45 Acetaminophen 650 mg Q6HPRN PRN PO 06/15/24 21:45 Enoxaparin Sodium 40 mg DAILY SC 06/16/24 10:00 06/17/24 10:47 40 MG Morphine Sulfate 2 mg Q4HPRN PRN IV 06/15/24 21:45 Sennosides 17.2 mg HS PO 06/16/24 22:00 06/16/24 21:05 17.2 MG Polyethylene Glycol 17 gm DAILY PO 06/16/24 10:00 06/17/24 10:41 17 GM Furosemide 20 mg DAILY PO 06/16/24 10:00 06/17/24 10:45 20 MG Gabapentin 300 mg TID PO 06/16/24 06:00 06/17/24 14:23 300 MG Latanoprost 1 drop QPM EACHEYE 06/16/24 18:00 Sertraline HCl 100 mg DAILY PO 06/16/24 10:00 06/17/24 10:41 100 MG Trazodone HCl 50 mg HS PO 06/16/24 22:00 06/16/24 21:06 50 MG Patient Own Medication 1 tab DAILY PO 06/16/24 10:00 UNV Levothyroxine Sodium 75 mcg DAILY@0700 PO 06/16/24 07:00 06/17/24 05:35 75 MCG Famotidine 20 mg BID PO 06/16/24 22:00 06/17/24 10:47 20 MG Dexamethasone Sodium Phosphate 4 mg Q8HR IV 06/16/24 14:00 06/17/24 14:26 4 MG Acetaminophen/ Hydrocodone Bitart 1 tab Q4HP PRN PO 06/17/24 12:15 06/17/24 14:26 1 TAB Sodium Biphosphate/ Sodium Phosphate 135 ml Q6HP PRN [place] 06/17/24 14:45 objective Alert awake oriented x3. Heart regular rate and rhythm S1 plus S2. Lungs without rales wheezes. Abdomen soft nontender positive bowel sounds. Extremities no edema. laboratory and microbiology Laboratory Tests 06/15/24 11:54 Test 06/15/24 11:54 Range/Units Serum Glucose 129 H 74-106 mg/dL Assessment/Plan Lumbar spine DJD with the stenosis causing her back pain. Hypertension Continue present management. Encouraged physical therapy and activity. Cardiac preop evaluation. Proceed with a lumbar spine surgery as appropriate per recommendations from spine surgeon. Discussed with the nurse regarding care plan. Problems(with codes): (1) Intractable back pain (2) Sacroiliitis Plan discussed with: ROBBIN Nelson MD Jun 17, 2024 16:48
[2024-06-18] VITALS (7 sets, daily range): BP systolic 109–127; BP diastolic 38–62; PULSE 51–69; RESP 16–18; TEMP 97.4–98.4; O2SAT 94–99
[2024-06-18 09:14] LABS: Basophils # (auto) 0 10 ^3/uL (0-0.2); Basophils % (auto) 0.4 % (0.0-2.0); Eosinophils # (auto) 0 10 ^3/uL (0-0.8); Eosinophils % (auto) 0.3 % (0.0-7.0); Hematocrit 37.5 % (36.0-46.0); Lymphocytes # (auto) 0.6 10 ^3/uL (0.4-5.4); Lymphocytes % (auto) 5.5 % (10.0-50.0); Mean Corpuscular Hemoglobin 28.2 pg (28.0-32.0); Mean Corpuscular Hgb Conc. 32.1 g/dL (32.0-36.0); Monocytes # (auto) 0.3 10 ^3/uL (0-1.3); Monocytes % (auto) 2.6 % (0.0-12.0); Neutrophils % (auto) 91.2 % (37.0-80.0); Nucleated Red Blood Cells % 0.1 %; Platelet Count (auto) 313 10^3/uL (140-450); Red Blood Cells 4.26 10^6/uL (4.0-5.20); Red Cell Distribution Width 14.4 % (11.8-14.3)
[2024-06-18 09:22] LABS: INR 1.05 (0.9-1.15); Prothrombin Time 11.1 sec (9.3-11.8)
[2024-06-18 09:23] LABS: Alanine Aminotransferase 10 U/L (7-40); Alkaline Phosphatase 51 U/L (46-116); Anion Gap 5 (5-15); Aspartate Aminotransferase 13 U/L (13-40); BUN/Creatinine Ratio 41.7 (10.0-20.0); Blood Urea Nitrogen 40 mg/dL (9-23); Calcium 11.2 mg/dL (8.7-10.4); Carbon Dioxide 30 mmol/L (20-31); Chloride 102 mmol/L (98-107); Glucose 190 mg/dL (74-106); Sodium 137 mmol/L (136-145)
[2024-06-18 09:24] LABS: Bilirubin, Total 0.2 mg/dL (0.2-1.0); Total Protein 6.7 g/dL (5.7-8.2)
--- NOTE | 2024-06-18 13:52 | DVH ---
CHEST RADIOGRAPH Indication: pre-op eval, pain Technique: Single frontal view of the chest was obtained Comparison: none FINDINGS: Lines and Tubes: None Lungs: No focal consolidation. Pleura: No effusion. No pneumothorax. Cardiomediastinal contours: Unremarkable Bones: No acute osseous abnormality. IMPRESSION: No acute cardiopulmonary disease.
--- NOTE | 2024-06-18 16:39 | DVHPN2 ---
Progress Note - Dictate Date Seen: Jun 18, 2024 Medical Necessity Reason Pt with a Central, PICC or Fol: No Subjective She is clinically stable. Evaluated by cardiology and orthopedic surgeon. Echocardiogram results noted. Scheduled for surgery for back/lumbar spine tomorrow vital signs Vital Sign Date Time Temp Pulse Resp B/P (MAP) Pulse Ox O2 Delivery O2 Flow Rate FiO2 06/18/24 13:01 97.4 58 18 120/54 (76) 99 97.4 06/18/24 08:00 Nasal Cannula* 3 32 Total Intake and Output 06/17/24 06/17/24 06/18/24 15:00 23:00 07:00 Intake Total 940 ml 350 ml Output Total 475 ml Balance 940 ml -125 ml medications Current Medications Medications Dose Ordered Sig/Nalini Route Start Time Stop Time Status Last Admin Dose Admin Ondansetron HCl 4 mg Q6HPRN PRN IV 06/15/24 21:45 Acetaminophen 650 mg Q6HPRN PRN PO 06/15/24 21:45 Enoxaparin Sodium 40 mg DAILY SC 06/16/24 10:00 06/18/24 10:20 40 MG Morphine Sulfate 2 mg Q4HPRN PRN IV 06/15/24 21:45 Sennosides 17.2 mg HS PO 06/16/24 22:00 06/17/24 21:10 17.2 MG Polyethylene Glycol 17 gm DAILY PO 06/16/24 10:00 06/18/24 10:18 17 GM Furosemide 20 mg DAILY PO 06/16/24 10:00 06/18/24 10:33 20 MG Gabapentin 300 mg TID PO 06/16/24 06:00 06/18/24 14:24 300 MG Latanoprost 1 drop QPM EACHEYE 06/16/24 18:00 Sertraline HCl 100 mg DAILY PO 06/16/24 10:00 06/18/24 10:20 100 MG Trazodone HCl 50 mg HS PO 06/16/24 22:00 06/17/24 21:10 50 MG Patient Own Medication 1 tab DAILY PO 06/16/24 10:00 UNV Levothyroxine Sodium 75 mcg DAILY@0700 PO 06/16/24 07:00 06/18/24 05:48 75 MCG Famotidine 20 mg BID PO 06/16/24 22:00 06/18/24 10:21 20 MG Dexamethasone Sodium Phosphate 4 mg Q8HR IV 06/16/24 14:00 06/18/24 14:24 4 MG Acetaminophen/ Hydrocodone Bitart 1 tab Q4HP PRN PO 06/17/24 12:15 06/18/24 14:24 1 TAB Sodium Biphosphate/ Sodium Phosphate 135 ml Q6HP PRN [place] 06/17/24 14:45 objective Alert awake oriented x3. Heart regular rate and rhythm S1 plus S2. Lungs without rales wheezes. Abdomen soft nontender positive bowel sounds. Extremities no edema. laboratory and microbiology Laboratory Tests 06/18/24 08:53 Test 06/18/24 08:53 Range/Units Serum Glucose 190 H 74-106 mg/dL Assessment/Plan Lumbar spine DJD with the stenosis causing her back pain. Hypertension Continue present management. Encouraged physical therapy and activity. Labs reviewed. Clinically stable. Proceed with a lumbar spine surgery as scheduled for tomorrow. Discussed with the patient regarding care plan. Plan discussed with: Other ROBBIN REDDING MD Jun 18, 2024 16:39
[2024-06-19] VITALS (7 sets, daily range): BP systolic 108–132; BP diastolic 48–62; PULSE 61–78; RESP 13–20; TEMP 97.5–98.9; O2SAT 94–99
[2024-06-19] MEDS: levoFLOXacin 500MG 100 ML IV ONE (06:31)
[2024-06-19] MEDS: LIDOCAINE W/ EPINEPHRINE 1% 20ML VIAL ONE (06:38)
[2024-06-19] MEDS: TRANEXAMIC ACID 20 ML ONE (06:38)
[2024-06-19] MEDS: ceFAZolin 2 GM/D5W100ml 100 ML IV ONE (06:50)
[2024-06-19] MEDS ORDERED: LIDOCAINE 1% INJ PF 5ML AMP ONE (07:00)
[2024-06-19] MEDS ORDERED: MIDAZOLAM HCL 2MG/2ML 2ml VIAL (1mg/ml) ONE (07:51)
[2024-06-19] MEDS ORDERED: HYDROmorphone HCL 2 MG/ML VL/or syr ONE (07:51)
[2024-06-19] MEDS ORDERED: DexAMETHasone SOD PHOS 10MG/1ML VIAL INJ ONE (07:52)
[2024-06-19] MEDS ORDERED: ETOMIDATE (2MG/ML) 20ML VIAL IV ONE (07:52)
[2024-06-19] MEDS ORDERED: GLYCOPYRROLATE 0.2 MG/ML 1ML VIAL ONE (07:52)
[2024-06-19] MEDS ORDERED: KETOROLAC TROMETH 30 MG/ML 1ML VIAL ONE (07:52)
[2024-06-19] MEDS ORDERED: ePHEDrine SULFATE 50 MG/ML AMP ONE (07:52)
[2024-06-19] MEDS ORDERED: ROCURONIUM 10MG/ML 10ML VIAL IV ONE (07:52)
[2024-06-19] MEDS ORDERED: fentaNYL CITRATE 100 MCG/2 ML VL ONE (07:52)
[2024-06-19] MEDS ORDERED: ONDANSETRON HCL 4 MG/2 ML VIAL ONE (07:52)
[2024-06-19] MEDS ORDERED: PROPOFOL 10 MG/ML 20 ML IV ONE (07:52)
[2024-06-19] MEDS: PROPOFOL 200 ML IV ONE (07:53)
[2024-06-19] MEDS ORDERED: fentaNYL CITRATE 5 ML ONE (07:55)
[2024-06-19] MEDS ORDERED: KETAMINE 50mg/ML 1ml syringe ONE (07:55)
--- NOTE | 2024-06-19 08:07 | DVHHP2 ---
History Allergies: Coded Allergies: NO KNOWN ALLERGIES (Unverified , 06/15/24) Chief Complaint: Low back pain, with excruciating pain radiating from the right hip all the way down to her ankle. Present Illness(Onset/Duration Patient denies any recent illnesses, no cough cold fever no diarrhea, patient has recently overcome about four days of constipation which resolved on SundayJune 17 Past Surgical History: Other (Patient denies any other spine surgeries or orthopedic surgeries.) Exam Exam General Appearance: Normal, Obese HEENT: Normal ENT Inspection Neck: Non-Tender, Normal Respiratory: No Accessory Muscle Use, None, No Respiratory Distress Cardiovascular: Normal Peripheral Pulses, Regular Rate/Rhythm Breast Exam: Deferred Gastrointestinal: Other (No complaints) Genitalia: Deferred Pelvic: Deferred Rectal: Deferred Extremities: Other (Right leg is hypersensitive) Musculoskeletal : Location: Right Extremity Location: Leg, Other (Right leg is weak 3/5) Apperance: Normal, Other (Hypersensitive to touch from the right hip down to the right ankle) Neurologic: Alert, Motor Weakness Cerebellar Function: Unable to Test Plan Additional comments: Patient arrives today for elective lumbar surgery with Dr. Mallory L3-5 posterior spinal decompression, fusion with peek cage bone graft and instrumentation The patient was informed of the risks and benefits of the procedure. These include but are not limited to complications of anesthesia, postoperative infection, incomplete relief of symptoms, recurrence of symptoms, damage to blood vessels, nerves and tendons, deep venous thrombosis, pulmonary embolism and possible need for repeat surgery in the future. The risks/benefits/alternatives of surgery including but not limited to pain, bleeding, infection, damage to surrounding soft tissue structures, need for reoperation or future surgery, persistent pain/disability/deformity, pseudoarthrotsis, bone graft collapse or extrusion of interbody device, instrumentation failure, need for instrumentation removal, dural tear, temporary or permanent nerve root damage, paralysis, stroke, deep vein thrombosis, pulmonary embolism, and any associated anesthetic risk (dry mouth, sore throat, dental damage, myocardial infarction, respiratory depression, blindness) were described to the patient in detail and the patient wishes to proceed. No guarantee of surgical outcome/improvement was implied. All of the questions were answered thoroughly and consents were obtained. We will obtain all the necessary preop tests in order for the patient to be cleared medically. Call with questions Carline Simpson [facility] Orthopaedic Spine Surgery nurse practitioner For Dr Kory Worthington - for staff use only Patient was examined, chart reviewed, labs evaluated, and diagnostic studies and findings analyzed. Case was discussed with Dr. Alvaro Worthington who formulated the plan of care. This medical document was created using an electronic medical record system with [employer] dictation system. Although this document has been carefully reviewed, there might still be some phonetic and typographical errors. These areas are purely typographical due to imperfections of the software programs, and do not reflect any compromise in the patient's medical care. MONICA SIMPSON NP Jun 19, 2024 08:07
[2024-06-19 08:09] LABS: Basophils # (auto) 0 10 ^3/uL (0-0.2); Basophils % (auto) 0.1 % (0.0-2.0); Eosinophils # (auto) 0 10 ^3/uL (0-0.8); Hematocrit 35.1 % (36.0-46.0); Hemoglobin 11.7 g/dL (12.2-16.2); Lymphocytes # (auto) 0.6 10 ^3/uL (0.4-5.4); Lymphocytes % (auto) 6.6 % (10.0-50.0); Mean Corpuscular Hemoglobin 28.6 pg (28.0-32.0); Mean Corpuscular Hgb Conc. 33.3 g/dL (32.0-36.0); Mean Corpuscular Volume 85.9 fL (80.0-100.0); Monocytes # (auto) 0.3 10 ^3/uL (0-1.3); Monocytes % (auto) 3.9 % (0.0-12.0); Neutrophils # (auto) 7.7 10 ^3/uL (1.6-8.6); Neutrophils % (auto) 89.4 % (37.0-80.0); Platelet Count (auto) 289 10^3/uL (140-450); Red Blood Cells 4.08 10^6/uL (4.0-5.20); Red Cell Distribution Width 14.2 % (11.8-14.3); White Blood Cell 8.6 10^3/uL (4.4-10.8)
[2024-06-19] MEDS: LIDOCAINE 1%HCL (LOCAL ANESTH) 10 ML MDV IJ ONE (09:40)
[2024-06-19] MEDS ORDERED: SUGAMMADEX 200mg/2ml Vial (100MG/ML) IV ONE (10:17)
[2024-06-19] MEDS ORDERED: ONDANSETRON HCL 4 MG/2 ML VIAL IV PRN (10:30)
[2024-06-19] MEDS ORDERED: ACETAMINOPHEN 325 MG TAB PO PRN (10:30)
[2024-06-19] MEDS ORDERED: HYDROcodone-ACET 10/325MG TAB PO PRN (10:30)
--- NOTE | 2024-06-19 10:31 | DVHOP2 ---
Operative Report - 2 Report Details Date: 06/19/24 Preop Diagnosis: lumbar spinal stenosis/spondylolisthesis/degenerative scoliosis Postop Diagnosis: same Surgeon: Alvaro Worthington MD Kitchen Hand: Taryn Simpson NP Anesthesiologist: Dr. Piña Anesthesia: General Consent: The patient was informed of the risks and benefits of the procedure. These include but are not limited to complications of anesthesia, postoperative infection, incomplete relief of symptoms, recurrence of symptoms, damage to blood vessels, nerves and tendons, deep venous thrombosis, pulmonary embolism and possible need for repeat surgery in the future. Name of Procedure Performed see detailed note Procedure Details Procedure Details: Pre-op Diagnosis: Lumbar Degenerative Disk Disease and Lumbar Spinal Stenosis alond with lumbar spondylolisthesis/degenerative scoliosis causing Incapacitating back pain, radiculopathy and progressive neurologic deficit Post-op Diagnosis: Lumbar Degenerative Disk Disease and Lumbar Spinal Stenosis and lumbar spondylolisthesis/degenerative scoliosiscausing Incapacitating back pain, radiculopathy and progressive neurologic deficit Procedure: Lumbar 5 laminectomy with Lumbar 5 foraminotomies and facetectomies to decompress central canal and Lumbar 5 nerve roots Lumbar 4 laminectomy with Lumbar 4 foraminotomies and facetectomies to decompress central canal and Lumbar 4 nerve roots Lumbar 3 laminectomy with Lumbar 3 foraminotomies and facetectomies to decompress central canal and Lumbar 4 nerve roots Lumbar 3 to 5 posterior spinal inter transverse fusion with bone graft Lumbar 3 to 5 posterior spinal instrumentation with pedicle screws Local Bone Autograft For Fusion Allograft Bone Substitute (Bacterin) to augment Fusion Use of Demineralized Bone Matrix to Augment Fusion Microscope For Microdissection Surgeon: Alvaro Worthington MD Assist: YU Hussein Anesthesia: General Fluids and EBL: See anesthesia note Patient was seen in the Pre Anesthesia Care Unit (PACU) and the operative site was initialed by me. All questions were answered to the patients satisfaction and chart reviewed. The patient was taken to the operative room where pre- operative antibiotics were given 30 minutes prior to incision. General anesthesia was induced and neuro-monitoring leads placed. Apple catheter was placed. The patient was turned prone onto the [facility] spinal table. While positioning, I made sure that the belly was free to allow proper expansion of the lungs. The hips were extended and all bony prominences padded. The shoulders were abducted 80 degree and the elbows flexed 100 degrees with no tension on the brachial plexus. I check the foot arterial pulses and they were palpable. The patient was prepped and draped and time out was taken at this time per usual protocol. At this time, the C-arm fluoroscope was brought in and was used to fabricio the incision borders proximally and distally. Using a Number 10 Blade, an incision was made extending it proximally and distally per C arm fabricio from the posterior spinous process of lumbar 4,5 down to the lumbo-dorsal fascia. All bleeding was controlled with electrocautery. Self-retaining ret ractors were placed. Electrocautery was then used to take down the lumbo-dorsal fascia, to free the muscle off the bone bilaterally. A Maru retractor was placed over the posterior spinous process proximally and a lateral C-arm fluoroscope image was taken to insure we were at the correct level. Next, using bovie electro cautery, The deep fascia laterally to the facet joints was removed to expose the transverse processes of lumbar 3, 4 and 5 while taking care to avoid injuring the facet capsule at the proximal end of the incision. Next, the microscope was bought in for visualization and using a Luxell rongeur, the posterior spinous process of lumbar 3 and 4 and 5 bone were removed and the bone was saved for use as local autograft. I used alternating Kerison 2 mm and 3 mm rongeurs to perform central laminectomies lumbar 5 and 4 and 3 to decompress the central canal. Next using alternating Kerison 2mm and 3 mm rongeurs, the superior articular facets of lumbar 3, 4 and 5 were removed bilaterally to dec ompress the lateral recess (facetectomies) and then extended proximally to decompress the foramen bilaterally (foraminotomies). I used a ball tipped nerve probed to insure that the respective nerve roots were able to be mobilized 5mm in each direction were unimpeded in the lateral recess and foramen. Next I carefully inspected the dura to make sure no durotomy was visible and it was not. I covered the exposed dura with gelfoam soaked in thrombin and the microscope was wheeled away from the operative filed. The C-arm fluoroscope was brought in and perfect AP views of the lumbar 4 and 5 pedicles were obtained. I placed bilateral pedicle screws at these levels by: using a Lenke awl to make a pilot instructor hole, then a ball tip robe to make sure there was no pedicle breach, then a tap to prepare the track and a 6.5 mm diameter 45 mm length pedicle screw was placed bilaterally. This step to place bilateral pedicle screws was repeated up to the lumbar 3, 4 and 5 level. Next, the c-arm fluoroscope took an AP and lateral x-ray to ensure proper placement of the pedicle screws. Next, the neuro-stimulation probe was placed over the tip of each screw and each screw stimulated only after a current greater than 10 mA was delivered to the screw. Next , I took a Midas Rayo Drill to decorticate the transverse process which were exposed and local bone graft, Bacterin allograft bone substitute and Demineralized bone matrix were placed along the inter transverse process intervals bilaterally (the fusion bed). Next a curved vini sized to fit the pedicle screw interval was placed and secured to each pedicle screw using set screws, The set screws were tightened using a torque screwdriver (set to 10 N*M torque) to secure the vini to the pedicle screws bilaterally. Final AP and lateral C arm fluoroscopic films were taken at this time. Next a 10 Georgian diameter Hemovac drain was laced deep to the lumbo-dorsal fascia. The lumbo-dorsal fascia was closed with interrupted 0- Vicry sutures. The subcutaneous tissue was closed with interrupted 2-0 Vicryl sutures. The skin was closed with running 2-0 nylon suture. Sterile dressings were place. The pt. was turned supine onto the stretcher, extubated and taken to the recovery room in stable condition. At the end of the case a TLSO brace was placed as well as an external bone stimulator. Condition Stable Disposition Still a Patient ALVARO WORTHINGTON MD Jun 19, 2024 10:31
[2024-06-19] MEDS: ONDANSETRON HCL 4 MG/2 ML VIAL IV ONE (11:30)
[2024-06-19] MEDS: ACCU-CHEK COMFORT CURVE STRIP VI ONE (11:30)
--- NOTE | 2024-06-19 11:36 | DVH ---
FLUOROSCOPY TIME: 116 seconds TECHNIQUE: Intraoperative radiographs of the lumbar spine were obtained. COMPARISON: None FINDINGS: Refer to intraoperative report for further evaluation. IMPRESSION: Refer to intraoperative report for further evaluation.
[2024-06-19] MEDS: HYDROmorphone HCL 2 MG/ML VL/or syr IV PRN (11:53)
[2024-06-19] MEDS: ceFAZolin 1GM/50ML 50 ML IV SCH (13:15)
[2024-06-19] MEDS: D5W/SOD CHLO 0.9% 1,000 ML IV SCH (13:16)
[2024-06-19] MEDS ORDERED: ceFAZolin 1GM/50ML 50 ML IV SCH (14:00)
--- NOTE | 2024-06-19 14:44 | DVHPN2 ---
Progress Note - Dictate Date Seen: Jun 19, 2024 Medical Necessity Reason Pt with a Central, PICC or Fol: No Subjective At her lumbar spine surgery this afternoon. Patient back in her room comfortable in bed. Has two ARSENIO drains. vital signs Vital Sign Date Time Temp Pulse Resp B/P (MAP) Pulse Ox O2 Delivery O2 Flow Rate FiO2 06/19/24 13:31 Nasal Cannula* 3 32 06/19/24 13:30 72 06/19/24 13:00 98.9 19 108/60 (76) 98 98.9 Total Intake and Output 06/18/24 06/18/24 06/19/24 15:00 23:00 07:00 Intake Total 400 ml 400 ml Balance 400 ml 400 ml medications Current Medications Medications Dose Ordered Sig/Nalini Route Start Time Stop Time Status Last Admin Dose Admin Sennosides 17.2 mg HS PO 06/16/24 22:00 06/18/24 21:45 17.2 MG Polyethylene Glycol 17 gm DAILY PO 06/16/24 10:00 06/18/24 10:18 17 GM Furosemide 20 mg DAILY PO 06/16/24 10:00 06/18/24 10:33 20 MG Gabapentin 300 mg TID PO 06/16/24 06:00 06/19/24 13:15 300 MG Latanoprost 1 drop QPM EACHEYE 06/16/24 18:00 Sertraline HCl 100 mg DAILY PO 06/16/24 10:00 06/18/24 10:20 100 MG Trazodone HCl 50 mg HS PO 06/16/24 22:00 06/18/24 21:44 50 MG Patient Own Medication 1 tab DAILY PO 06/16/24 10:00 UNV Levothyroxine Sodium 75 mcg DAILY@0700 PO 06/16/24 07:00 06/19/24 05:54 75 MCG Famotidine 20 mg BID PO 06/16/24 22:00 06/18/24 10:21 20 MG Dexamethasone Sodium Phosphate 4 mg Q8HR IV 06/16/24 14:00 06/19/24 13:15 4 MG Acetaminophen/ Hydrocodone Bitart 1 tab Q4HP PRN PO 06/17/24 12:15 06/18/24 21:45 1 TAB Sodium Biphosphate/ Sodium Phosphate 135 ml Q6HP PRN [place] 06/17/24 14:45 Dextrose/Sodium Chloride 1,000 ml @ 100 mls/hr Q10H IV 06/19/24 10:30 06/19/24 13:16 100 MLS/HR Ondansetron HCl 4 mg Q4HP PRN IV 06/19/24 10:30 Acetaminophen 650 mg Q6HP PRN PO 06/19/24 10:30 Morphine Sulfate 1 mg Q4HP PRN IV 06/19/24 10:30 Docusate Sodium 100 mg BID PO 06/19/24 22:00 Cefazolin Sodium 50 ml @ 100 mls/hr Q8HR IV 06/19/24 14:00 06/21/24 06:29 06/19/24 13:15 100 MLS/HR objective Alert awake comfortable in bed without distress. Heart regular rate and rhythm S1 plus S2. Lungs without rales wheezes. Abdomen soft nontender positive bowel sounds. Extremities no edema. laboratory and microbiology Laboratory Tests 06/19/24 07:50 06/18/24 08:53 Test 06/18/24 08:53 Range/Units Serum Glucose 190 H 74-106 mg/dL Assessment/Plan Lumbar spine DJD with the stenosis causing her back pain. Hypertension Back from spine surgery. Continue present management. Encouraged physical therapy and activity. Labs reviewed. Clinically stable. Further clinical management per postop recovery and recommendation from surgeon. Discussed with the nurse. Plan discussed with: Other ROBBIN REDDING MD Jun 19, 2024 14:44
[2024-06-19] MEDS: DOCUSATE SOD 100 MG CAP PO SCH (22:05)
[2024-06-20] VITALS (8 sets, daily range): BP systolic 102–119; BP diastolic 43–76; PULSE 60–90; RESP 16–19; TEMP 97.8–99.2; O2SAT 96–100
[2024-06-20 06:17] LABS: Hematocrit 32.1 % (36.0-46.0); Hemoglobin 10.8 g/dL (12.2-16.2); Mean Corpuscular Hgb Conc. 33.6 g/dL (32.0-36.0); Mean Corpuscular Volume 86.3 fL (80.0-100.0); Platelet Count (auto) 252 10^3/uL (140-450); Red Blood Cells 3.72 10^6/uL (4.0-5.20); Red Cell Distribution Width 13.9 % (11.8-14.3); White Blood Cell 11.9 10^3/uL (4.4-10.8)
[2024-06-20 06:37] LABS: Anion Gap 5 (5-15); Carbon Dioxide 29 mmol/L (20-31); Chloride 104 mmol/L (98-107); Potassium 4.2 mmol/L (3.5-5.1); Sodium 138 mmol/L (136-145)
[2024-06-20 06:38] LABS: Calcium 10.2 mg/dL (8.7-10.4)
[2024-06-20 06:42] LABS: Band Neutrophils % (manual) 0; Basophils % (manual) 0 (0.0-2.0); Blast Cells 0; Eosinophils % (manual) 0 (0-7); Metamyelocytes % 0; Myelocytes % 0; Promyelocytes % 0; Reactive Lymphocytes 0
[2024-06-20 06:43] LABS: BUN/Creatinine Ratio 45.8 (10.0-20.0); Blood Urea Nitrogen 38 mg/dL (9-23); Glucose 179 mg/dL (74-106)
[2024-06-20 07:41] LABS: Lymphocytes % (manual) 1 (10.0-50.0); Monocytes % (manual) 7 (0-12)
[2024-06-20 07:42] LABS: Platelet Estimate Adequate; RBC Morphology Normal
[2024-06-20] MEDS: MORPHINE SULFATE INJ 2 MG/ml SYRG IV PRN (11:50)
[2024-06-20] MEDS: OXYCODONE W/ ACETAMINOPHEN 5/325MG TABLET PO PRN (15:17)
--- NOTE | 2024-06-20 17:30 | DVHPN2 ---
Subjective I am assuming the care of the patient from today onwards. Patient's still complaining of with a horrible back pain Reviewed: Care Plan Changes from previous H/P or p: No Changes Objective Vitals Vital Signs Date Time Temp Pulse Resp B/P (MAP) Pulse Ox O2 Delivery O2 Flow Rate FiO2 06/20/24 13:00 97.8 60 16 108/63 (78) 100 97.8 06/20/24 08:00 Room Air* 0 21 Intake/Output Intake and Output 06/20/24 07:00 Intake Total 1070 ml Output Total 800 ml Balance 270 ml Intake Oral 420 ml IV Total 650 ml Output Urine Total 750 ml Drainage Total 50 ml # Voids 3 # Bowel Movements 2 Exam HEENT pupils are reactive Neck is supple CV is S1-S2 regular rate and rhythm Respiratory diminished breath sounds bases GI positive bowel sound Extremity no edema [employer] no motor 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 Medications Current Medications Medications Dose Ordered Sig/Nalini Route Start Time Stop Time Status Last Admin Dose Admin Sennosides 17.2 mg HS PO 06/16/24 22:00 06/19/24 22:06 17.2 MG Polyethylene Glycol 17 gm DAILY PO 06/16/24 10:00 06/20/24 10:15 17 GM Furosemide 20 mg DAILY PO 06/16/24 10:00 06/20/24 10:14 20 MG Gabapentin 300 mg TID PO 06/16/24 06:00 06/20/24 15:17 300 MG Latanoprost 1 drop QPM EACHEYE 06/16/24 18:00 Sertraline HCl 100 mg DAILY PO 06/16/24 10:00 06/20/24 10:11 100 MG Trazodone HCl 50 mg HS PO 06/16/24 22:00 06/19/24 22:05 50 MG Patient Own Medication 1 tab DAILY PO 06/16/24 10:00 UNV Levothyroxine Sodium 75 mcg DAILY@0700 PO 06/16/24 07:00 06/20/24 06:15 75 MCG Famotidine 20 mg BID PO 06/16/24 22:00 06/20/24 10:12 20 MG Dexamethasone Sodium Phosphate 4 mg Q8HR IV 06/16/24 14:00 06/20/24 17:17 4 MG Sodium Biphosphate/ Sodium Phosphate 135 ml Q6HP PRN [place] 06/17/24 14:45 Dextrose/Sodium Chloride 1,000 ml @ 100 mls/hr Q10H IV 06/19/24 10:30 06/19/24 22:10 100 MLS/HR Ondansetron HCl 4 mg Q4HP PRN IV 06/19/24 10:30 Acetaminophen 650 mg Q6HP PRN PO 06/19/24 10:30 Morphine Sulfate 1 mg Q4HP PRN IV 06/19/24 10:30 06/20/24 11:50 1 MG Docusate Sodium 100 mg BID PO 06/19/24 22:00 06/20/24 10:14 100 MG Cefazolin Sodium 50 ml @ 100 mls/hr Q8HR IV 06/19/24 14:00 06/21/24 06:29 06/20/24 17:16 100 MLS/HR Oxycodone/ Acetaminophen 1 tab Q4HP PRN PO 06/20/24 12:15 06/20/24 15:17 1 TAB Laboratory Results Laboratory Tests 06/20/24 05:39 Chemistry Test 06/20/24 05:39 Calcium Level 10.2 mg/dL (8.7-10.4) Urinalysis Test 06/15/24 19:55 Urine Color Light-yellow (Yellow) Urine Clarity Clear (Clear) Urine pH 6.0 (5.0-9.0) Urine Specific [place] 1.012 (1.001-1.035) Urine Protein Negative (Negative) Urine Ketones Negative (Negative) Urine Blood Negative /uL (Negative) Urine Nitrite Negative (Negative) Urine Bilirubin Negative (Negative) Urine Urobilinogen Normal mg/dL (Negative) Urine Leukocyte Esterase Negative /uL (Negative) Urine RBC <1 /hpf (0 - 4) Urine WBC 1 /hpf (0 - 5) Urine Squamous Epithelial Cells Few /hpf (<5) Urine Bacteria None seen /hpf (None Seen) Urine Glucose Normal mg/dL (Normal) Assessment/Plan Assessment/Plan 79-year-old female with a known history of hypertension, peripheral neuropathy, hypothyroidism who initially presented to the hospital with the back pain found to have 1. acute lumbar back pain status post spinal decompression at L3-4 five level 2. Facial rash suspect NST SI effects we will watch closely 3. Hypertension 4. Peripheral neuropathy 5. Hypothyroidism -pain meds as tolerated, DVT GI prophylaxis -orthopedic spine surgery follow up. Plan discussed with: Patient Date of Service: Jun 20, 2024 Billing Provider: MARTIN VALDIVIA MD Common Visit Codes: NOT BILLABLE MARTIN VALDIVIA MD Jun 20, 2024 17:30
[2024-06-21] VITALS (8 sets, daily range): BP systolic 101–148; BP diastolic 45–75; PULSE 65–101; RESP 18–21; TEMP 98.2–99.3; O2SAT 97–100
--- NOTE | 2024-06-21 15:48 | DVHPN2 ---
Subjective Patient currently having bowel movements. We will discuss with the nurse regarding plan of care. Reviewed: Care Plan Changes from previous H/P or p: No Changes Objective Vitals Vital Signs Date Time Temp Pulse Resp B/P (MAP) Pulse Ox O2 Delivery O2 Flow Rate FiO2 06/21/24 13:00 99.3 66 21 101/65 (77) 100 99.3 06/21/24 08:00 Room Air* 0 21 Intake/Output Intake and Output 06/21/24 07:00 Intake Total 1970 ml Output Total 2150 ml Balance -180 ml Intake Oral 1920 ml IV Total 50 ml Output Urine Total 2150 ml Medications Current Medications Medications Dose Ordered Sig/Nalini Route Start Time Stop Time Status Last Admin Dose Admin Sennosides 17.2 mg HS PO 06/16/24 22:00 06/20/24 21:24 17.2 MG Polyethylene Glycol 17 gm DAILY PO 06/16/24 10:00 06/21/24 09:43 17 GM Furosemide 20 mg DAILY PO 06/16/24 10:00 06/21/24 09:44 20 MG Gabapentin 300 mg TID PO 06/16/24 06:00 06/21/24 14:15 300 MG Latanoprost 1 drop QPM EACHEYE 06/16/24 18:00 06/20/24 18:10 1 DROP Sertraline HCl 100 mg DAILY PO 06/16/24 10:00 06/21/24 09:43 100 MG Trazodone HCl 50 mg HS PO 06/16/24 22:00 06/20/24 21:24 50 MG Patient Own Medication 1 tab DAILY PO 06/16/24 10:00 UNV Levothyroxine Sodium 75 mcg DAILY@0700 PO 06/16/24 07:00 06/21/24 06:16 75 MCG Famotidine 20 mg BID PO 06/16/24 22:00 06/21/24 09:43 20 MG Dexamethasone Sodium Phosphate 4 mg Q8HR IV 06/16/24 14:00 06/21/24 14:15 4 MG Sodium Biphosphate/ Sodium Phosphate 135 ml Q6HP PRN [place] 06/17/24 14:45 Dextrose/Sodium Chloride 1,000 ml @ 100 mls/hr Q10H IV 06/19/24 10:30 06/21/24 09:45 100 MLS/HR Ondansetron HCl 4 mg Q4HP PRN IV 06/19/24 10:30 Acetaminophen 650 mg Q6HP PRN PO 06/19/24 10:30 Morphine Sulfate 1 mg Q4HP PRN IV 06/19/24 10:30 06/20/24 11:50 1 MG Docusate Sodium 100 mg BID PO 06/19/24 22:00 06/21/24 09:42 100 MG Oxycodone/ Acetaminophen 1 tab Q4HP PRN PO 06/20/24 12:15 06/21/24 14:31 1 TAB Laboratory Results Laboratory Tests 06/20/24 05:39 Urinalysis Test 06/15/24 19:55 Urine Color Light-yellow (Yellow) Urine Clarity Clear (Clear) Urine pH 6.0 (5.0-9.0) Urine Specific [place] 1.012 (1.001-1.035) Urine Protein Negative (Negative) Urine Ketones Negative (Negative) Urine Blood Negative /uL (Negative) Urine Nitrite Negative (Negative) Urine Bilirubin Negative (Negative) Urine Urobilinogen Normal mg/dL (Negative) Urine Leukocyte Esterase Negative /uL (Negative) Urine RBC <1 /hpf (0 - 4) Urine WBC 1 /hpf (0 - 5) Urine Squamous Epithelial Cells Few /hpf (<5) Urine Bacteria None seen /hpf (None Seen) Urine Glucose Normal mg/dL (Normal) Assessment/Plan Assessment/Plan 79-year-old female with a known history of hypertension, peripheral neuropathy, hypothyroidism who initially presented to the hospital with the back pain found to have 1. acute lumbar back pain status post spinal decompression at L3-4-5 level 2. Facial rash suspect secondary to anesthesia 3. Hypertension 4. Peripheral neuropathy 5. Hypothyroidism -pain meds as tolerated, DVT GI prophylaxis -orthopedic spine surgery follow up. -bowel regimen Plan discussed with: Patient Date of Service: Jun 21, 2024 Billing Provider: MARTIN VALDIVIA MD Common Visit Codes: NOT BILLABLE MARTIN VALDIVIA MD Jun 21, 2024 15:48
[2024-06-22] VITALS (7 sets, daily range): BP systolic 113–135; BP diastolic 48–69; PULSE 57–86; RESP 16–18; TEMP 97.4–99; O2SAT 94–100
--- NOTE | 2024-06-22 15:41 | DVHPN2 ---
Subjective Patient was walking with the physical therapy in the hallway. Sees pain is much better today. 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 Medications Current Medications Medications Dose Ordered Sig/Nalini Route Start Time Stop Time Status Last Admin Dose Admin Sennosides 17.2 mg HS PO 06/16/24 22:00 06/21/24 22:22 17.2 MG Polyethylene Glycol 17 gm DAILY PO 06/16/24 10:00 06/22/24 09:39 17 GM Furosemide 20 mg DAILY PO 06/16/24 10:00 06/22/24 09:41 20 MG Gabapentin 300 mg TID PO 06/16/24 06:00 06/22/24 13:54 300 MG Latanoprost 1 drop QPM EACHEYE 06/16/24 18:00 06/20/24 18:10 1 DROP Sertraline HCl 100 mg DAILY PO 06/16/24 10:00 06/22/24 09:41 100 MG Trazodone HCl 50 mg HS PO 06/16/24 22:00 06/21/24 22:43 50 MG Patient Own Medication 1 tab DAILY PO 06/16/24 10:00 UNV Levothyroxine Sodium 75 mcg DAILY@0700 PO 06/16/24 07:00 06/22/24 06:36 75 MCG Famotidine 20 mg BID PO 06/16/24 22:00 06/22/24 09:40 20 MG Dexamethasone Sodium Phosphate 4 mg Q8HR IV 06/16/24 14:00 06/22/24 06:35 4 MG Sodium Biphosphate/ Sodium Phosphate 135 ml Q6HP PRN [place] 06/17/24 14:45 Dextrose/Sodium Chloride 1,000 ml @ 100 mls/hr Q10H IV 06/19/24 10:30 06/22/24 08:30 100 MLS/HR Ondansetron HCl 4 mg Q4HP PRN IV 06/19/24 10:30 Acetaminophen 650 mg Q6HP PRN PO 06/19/24 10:30 Morphine Sulfate 1 mg Q4HP PRN IV 06/19/24 10:30 06/20/24 11:50 1 MG Docusate Sodium 100 mg BID PO 06/19/24 22:00 06/22/24 09:41 100 MG Oxycodone/ Acetaminophen 1 tab Q4HP PRN PO 06/20/24 12:15 06/22/24 13:54 1 TAB Laboratory Results Laboratory Tests 06/20/24 05:39 Urinalysis Test 06/15/24 19:55 Urine Color Light-yellow (Yellow) Urine Clarity Clear (Clear) Urine pH 6.0 (5.0-9.0) Urine Specific [place] 1.012 (1.001-1.035) Urine Protein Negative (Negative) Urine Ketones Negative (Negative) Urine Blood Negative /uL (Negative) Urine Nitrite Negative (Negative) Urine Bilirubin Negative (Negative) Urine Urobilinogen Normal mg/dL (Negative) Urine Leukocyte Esterase Negative /uL (Negative) Urine RBC <1 /hpf (0 - 4) Urine WBC 1 /hpf (0 - 5) Urine Squamous Epithelial Cells Few /hpf (<5) Urine Bacteria None seen /hpf (None Seen) Urine Glucose Normal mg/dL (Normal) Assessment/Plan Assessment/Plan 79-year-old female with a known history of hypertension, peripheral neuropathy, hypothyroidism who initially presented to the hospital with the back pain found to have 1. acute lumbar back pain status post spinal decompression at L3-4-5 level 2. Facial rash suspect secondary to anesthesia 3. Hypertension 4. Peripheral neuropathy 5. Hypothyroidism -pain meds as tolerated, DVT GI prophylaxis -orthopedic spine surgery follow up. -bowel regimen Plan discussed with: Patient, Other Date of Service: Jun 22, 2024 Billing Provider: MARTIN VALDIVIA MD Common Visit Codes: NOT BILLABLE MARTIN VALDIVIA MD Jun 22, 2024 15:41
[2024-06-23] VITALS (7 sets, daily range): BP systolic 129–154; BP diastolic 55–74; PULSE 67–89; RESP 18–20; TEMP 97.4–98.7; O2SAT 91–98
[2024-06-23 07:34] LABS: Calcium 9.9 mg/dL (8.7-10.4); Chloride 110 mmol/L (98-107); Potassium 4.5 mmol/L (3.5-5.1); Sodium 142 mmol/L (136-145)
[2024-06-23 07:35] LABS: Anion Gap 6 (5-15); Carbon Dioxide 26 mmol/L (20-31)
[2024-06-23 07:40] LABS: Blood Urea Nitrogen 36 mg/dL (9-23); Glucose 233 mg/dL (74-106); Red Blood Cells 2.97 10^6/uL (4.0-5.20)
[2024-06-23 07:43] LABS: Hematocrit 25.8 % (36.0-46.0); Hemoglobin 8.4 g/dL (12.2-16.2); Mean Corpuscular Hemoglobin 28.4 pg (28.0-32.0); Mean Corpuscular Hgb Conc. 32.7 g/dL (32.0-36.0); Mean Corpuscular Volume 86.8 fL (80.0-100.0); Platelet Count (auto) 239 10^3/uL (140-450); Red Cell Distribution Width 14.6 % (11.8-14.3); White Blood Cell 12.9 10^3/uL (4.4-10.8)
[2024-06-23 07:54] LABS: Band Neutrophils % (manual) 0; Basophils % (manual) 0 (0.0-2.0); Blast Cells 0; Eosinophils % (manual) 0 (0-7); Metamyelocytes % 0; Myelocytes % 0; Promyelocytes % 0; Reactive Lymphocytes 0
[2024-06-23 08:22] LABS: Lymphocytes % (manual) 6 (10.0-50.0); Monocytes % (manual) 4 (0-12); Platelet Estimate Adequate; RBC Morphology Normal
--- NOTE | 2024-06-23 16:30 | DVHPN2 ---
Subjective Patient was walking with the physical therapy in the hallway. Sees pain is much better today. 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 Medications Current Medications Medications Dose Ordered Sig/Nalini Route Start Time Stop Time Status Last Admin Dose Admin Sennosides 17.2 mg HS PO 06/16/24 22:00 06/22/24 21:41 17.2 MG Polyethylene Glycol 17 gm DAILY PO 06/16/24 10:00 06/23/24 10:03 17 GM Furosemide 20 mg DAILY PO 06/16/24 10:00 06/23/24 10:03 20 MG Gabapentin 300 mg TID PO 06/16/24 06:00 06/23/24 14:05 300 MG Latanoprost 1 drop QPM EACHEYE 06/16/24 18:00 06/20/24 18:10 1 DROP Sertraline HCl 100 mg DAILY PO 06/16/24 10:00 06/23/24 10:03 100 MG Trazodone HCl 50 mg HS PO 06/16/24 22:00 06/22/24 21:41 50 MG Patient Own Medication 1 tab DAILY PO 06/16/24 10:00 UNV Levothyroxine Sodium 75 mcg DAILY@0700 PO 06/16/24 07:00 06/23/24 05:55 75 MCG Famotidine 20 mg BID PO 06/16/24 22:00 06/23/24 10:03 20 MG Dexamethasone Sodium Phosphate 4 mg Q8HR IV 06/16/24 14:00 06/23/24 14:05 4 MG Sodium Biphosphate/ Sodium Phosphate 135 ml Q6HP PRN [place] 06/17/24 14:45 Dextrose/Sodium Chloride 1,000 ml @ 100 mls/hr Q10H IV 06/19/24 10:30 06/23/24 04:51 100 MLS/HR Ondansetron HCl 4 mg Q4HP PRN IV 06/19/24 10:30 Acetaminophen 650 mg Q6HP PRN PO 06/19/24 10:30 Morphine Sulfate 1 mg Q4HP PRN IV 06/19/24 10:30 06/20/24 11:50 1 MG Docusate Sodium 100 mg BID PO 06/19/24 22:00 06/23/24 10:03 100 MG Oxycodone/ Acetaminophen 1 tab Q4HP PRN PO 06/20/24 12:15 06/23/24 14:05 1 TAB Laboratory Results Laboratory Tests 06/23/24 06:24 Chemistry Test 06/23/24 06:24 Calcium Level 9.9 mg/dL (8.7-10.4) Magnesium Level 2.0 mg/dL (1.6-2.6) Urinalysis Test 06/15/24 19:55 Urine Color Light-yellow (Yellow) Urine Clarity Clear (Clear) Urine pH 6.0 (5.0-9.0) Urine Specific [place] 1.012 (1.001-1.035) Urine Protein Negative (Negative) Urine Ketones Negative (Negative) Urine Blood Negative /uL (Negative) Urine Nitrite Negative (Negative) Urine Bilirubin Negative (Negative) Urine Urobilinogen Normal mg/dL (Negative) Urine Leukocyte Esterase Negative /uL (Negative) Urine RBC <1 /hpf (0 - 4) Urine WBC 1 /hpf (0 - 5) Urine Squamous Epithelial Cells Few /hpf (<5) Urine Bacteria None seen /hpf (None Seen) Urine Glucose Normal mg/dL (Normal) Assessment/Plan Assessment/Plan 79-year-old female with a known history of hypertension, peripheral neuropathy, hypothyroidism who initially presented to the hospital with the back pain found to have 1. acute lumbar back pain status post spinal decompression at L3-4-5 level 2. Facial rash suspect secondary to anesthesia 3. Hypertension 4. Peripheral neuropathy 5. Hypothyroidism -pain meds as tolerated, DVT GI prophylaxis -orthopedic spine surgery follow up. -discharge plan per spine surgery. Plan discussed with: Patient, Other Date of Service: Jun 23, 2024 Billing Provider: MARTIN VALDIVIA MD Common Visit Codes: NOT BILLABLE MARTIN VALDIVIA MD Jun 23, 2024 16:30
[2024-06-24] VITALS (8 sets, daily range): BP systolic 108–145; BP diastolic 55–83; PULSE 54–85; RESP 18–20; TEMP 97.5–98.7; O2SAT 95–99
--- NOTE | 2024-06-24 17:52 | DVHPN2 ---
Subjective Patient was stated that she was still moderate assist but she will not agree to go to shelter facility. 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 Medications Current Medications Medications Dose Ordered Sig/Nalini Route Start Time Stop Time Status Last Admin Dose Admin Sennosides 17.2 mg HS PO 06/16/24 22:00 06/23/24 22:00 17.2 MG Polyethylene Glycol 17 gm DAILY PO 06/16/24 10:00 06/24/24 09:54 17 GM Furosemide 20 mg DAILY PO 06/16/24 10:00 06/24/24 09:55 20 MG Gabapentin 300 mg TID PO 06/16/24 06:00 06/24/24 14:09 300 MG Latanoprost 1 drop QPM EACHEYE 06/16/24 18:00 06/24/24 17:26 1 DROP Sertraline HCl 100 mg DAILY PO 06/16/24 10:00 06/24/24 09:56 100 MG Trazodone HCl 50 mg HS PO 06/16/24 22:00 06/23/24 23:16 50 MG Patient Own Medication 1 tab DAILY PO 06/16/24 10:00 UNV Levothyroxine Sodium 75 mcg DAILY@0700 PO 06/16/24 07:00 06/24/24 06:11 75 MCG Famotidine 20 mg BID PO 06/16/24 22:00 06/24/24 09:55 20 MG Dexamethasone Sodium Phosphate 4 mg Q8HR IV 06/16/24 14:00 06/24/24 14:09 4 MG Sodium Biphosphate/ Sodium Phosphate 135 ml Q6HP PRN [place] 06/17/24 14:45 Dextrose/Sodium Chloride 1,000 ml @ 100 mls/hr Q10H IV 06/19/24 10:30 06/24/24 10:11 100 MLS/HR Ondansetron HCl 4 mg Q4HP PRN IV 06/19/24 10:30 Acetaminophen 650 mg Q6HP PRN PO 06/19/24 10:30 Morphine Sulfate 1 mg Q4HP PRN IV 06/19/24 10:30 06/20/24 11:50 1 MG Docusate Sodium 100 mg BID PO 06/19/24 22:00 06/24/24 09:54 100 MG Oxycodone/ Acetaminophen 1 tab Q4HP PRN PO 06/20/24 12:15 06/24/24 14:09 1 TAB Laboratory Results Laboratory Tests 06/23/24 06:24 Urinalysis Test 06/15/24 19:55 Urine Color Light-yellow (Yellow) Urine Clarity Clear (Clear) Urine pH 6.0 (5.0-9.0) Urine Specific [place] 1.012 (1.001-1.035) Urine Protein Negative (Negative) Urine Ketones Negative (Negative) Urine Blood Negative /uL (Negative) Urine Nitrite Negative (Negative) Urine Bilirubin Negative (Negative) Urine Urobilinogen Normal mg/dL (Negative) Urine Leukocyte Esterase Negative /uL (Negative) Urine RBC <1 /hpf (0 - 4) Urine WBC 1 /hpf (0 - 5) Urine Squamous Epithelial Cells Few /hpf (<5) Urine Bacteria None seen /hpf (None Seen) Urine Glucose Normal mg/dL (Normal) Assessment/Plan Assessment/Plan 79-year-old female with a known history of hypertension, peripheral neuropathy, hypothyroidism who initially presented to the hospital with the back pain found to have 1. acute lumbar back pain status post spinal decompression at L3-4-5 level 2. Facial rash suspect secondary to anesthesia 3. Hypertension 4. Peripheral neuropathy 5. Hypothyroidism -pain meds as tolerated, DVT GI prophylaxis -orthopedic spine surgery follow up. -discharge plan per spine surgery. Plan discussed with: Patient, Other My Orders Orders - MARTIN VALDIVIA MD Procedure Category Date Status Time Discharge DISCHARGE 06/24/24 Verified 17:50 Date of Service: Jun 24, 2024 Billing Provider: MARTIN VALDIVIA MD Common Visit Codes: NOT BILLABLE MARTIN VALDIVIA MD Jun 24, 2024 17:52
[2024-06-25] VITALS (8 sets, daily range): BP systolic 120–150; BP diastolic 43–77; PULSE 59–95; RESP 16–20; TEMP 97.4–98.3; O2SAT 97–100
--- NOTE | 2024-06-25 13:40 | DVHPN2 ---
Subjective Patient was stated that she was still moderate assist but she will not agree to go to correction facility. Complaining of 9/10 pain. 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 Medications Current Medications Medications Dose Ordered Sig/Nalini Route Start Time Stop Time Status Last Admin Dose Admin Sennosides 17.2 mg HS PO 06/16/24 22:00 06/24/24 22:24 17.2 MG Polyethylene Glycol 17 gm DAILY PO 06/16/24 10:00 06/25/24 10:00 17 GM Furosemide 20 mg DAILY PO 06/16/24 10:00 06/25/24 10:01 20 MG Gabapentin 300 mg TID PO 06/16/24 06:00 06/25/24 06:00 300 MG Latanoprost 1 drop QPM EACHEYE 06/16/24 18:00 06/24/24 17:26 1 DROP Sertraline HCl 100 mg DAILY PO 06/16/24 10:00 06/25/24 10:00 100 MG Trazodone HCl 50 mg HS PO 06/16/24 22:00 06/24/24 22:24 50 MG Patient Own Medication 1 tab DAILY PO 06/16/24 10:00 UNV Levothyroxine Sodium 75 mcg DAILY@0700 PO 06/16/24 07:00 06/24/24 06:11 75 MCG Famotidine 20 mg BID PO 06/16/24 22:00 06/25/24 10:00 20 MG Dexamethasone Sodium Phosphate 4 mg Q8HR IV 06/16/24 14:00 06/25/24 06:00 4 MG Sodium Biphosphate/ Sodium Phosphate 135 ml Q6HP PRN [place] 06/17/24 14:45 Dextrose/Sodium Chloride 1,000 ml @ 100 mls/hr Q10H IV 06/19/24 10:30 06/25/24 06:30 100 MLS/HR Ondansetron HCl 4 mg Q4HP PRN IV 06/19/24 10:30 Acetaminophen 650 mg Q6HP PRN PO 06/19/24 10:30 Morphine Sulfate 1 mg Q4HP PRN IV 06/19/24 10:30 06/20/24 11:50 1 MG Docusate Sodium 100 mg BID PO 06/19/24 22:00 06/25/24 10:01 100 MG Oxycodone/ Acetaminophen 1 tab Q4HP PRN PO 06/20/24 12:15 06/25/24 10:02 1 TAB Laboratory Results Laboratory Tests 06/23/24 06:24 Urinalysis Test 06/15/24 19:55 Urine Color Light-yellow (Yellow) Urine Clarity Clear (Clear) Urine pH 6.0 (5.0-9.0) Urine Specific [place] 1.012 (1.001-1.035) Urine Protein Negative (Negative) Urine Ketones Negative (Negative) Urine Blood Negative /uL (Negative) Urine Nitrite Negative (Negative) Urine Bilirubin Negative (Negative) Urine Urobilinogen Normal mg/dL (Negative) Urine Leukocyte Esterase Negative /uL (Negative) Urine RBC <1 /hpf (0 - 4) Urine WBC 1 /hpf (0 - 5) Urine Squamous Epithelial Cells Few /hpf (<5) Urine Bacteria None seen /hpf (None Seen) Urine Glucose Normal mg/dL (Normal) Assessment/Plan Assessment/Plan 79-year-old female with a known history of hypertension, peripheral neuropathy, hypothyroidism who initially presented to the hospital with the back pain found to have 1. acute lumbar back pain status post spinal decompression at L3-4-5 level 2. Facial rash suspect secondary to anesthesia, resolved 3. Hypertension 4. Peripheral neuropathy 5. Hypothyroidism 6. Constipation resolved -pain meds as tolerated, DVT GI prophylaxis -orthopedic spine surgery follow up. -discharge plan per spine surgery. Plan discussed with: Patient My Orders Orders - MARTIN VALDIVIA MD Procedure Category Date Status Time Discharge DISCHARGE 06/24/24 Transmitted 17:50 Dme: Miguelito RUTLEDGE 06/25/24 Transmitted 09:12 Date of Service: Jun 25, 2024 Billing Provider: MARTIN VALDIVIA MD Common Visit Codes: NOT BILLABLE MARTIN VALDIVIA MD Jun 25, 2024 13:40
--- NOTE | 2024-06-25 15:25 | DVH ---
Bilateral lower extremity venous duplex Clinical History: Right lower extremity pain Comparison: None Technique: Duplex Doppler evaluation of the deep venous systems of both lower extremities from the common femora l veins to the popliteal veins including color Doppler and spectral/pulsed waveform analysis was perf ormed. Findings: RIGHT SIDE: The common femoral vein demonstrates appropriate compressibility and waveform variability. There is compressibility/patency of the great saphenous vein at the proximal thigh. The femoral vein demonstrates incomplete compressibility and absence flow. The deep femoral vein demonstrates appropriate compressibility and waveform variability. The popliteal vein demonstrates appropriate compressibility and waveform variability. There is normal compressibility at the tibioperoneal trunk. LEFT SIDE: The common femoral vein demonstrates appropriate compressibility and waveform variability. There is compressibility/patency of the great saphenous vein at the proximal thigh. The femoral vein demonstrates appropriate compressibility and waveform variability. The deep femoral vein demonstrates appropriate compressibility and waveform variability. The popliteal vein demonstrates appropriate compressibility and waveform variability. There is normal compressibility at the tibioperoneal trunk. Impression: 1. Occlusive DVT at the right femoral vein. 2. No left femoropopliteal venous thrombosis. Critical Result: Occlusive right lower extremity DVT Multiple attempts by [facility] radiology assistance to reach the ordering physician were unsuccessful. Find ings discussed with warehouse record clerk, Syl, at 06/25/2024 3:22 PM, and acknowledged receipt and unde rstanding of the findings. HS:Y
[2024-06-25] MEDS: ENOXAPARIN SOD 120 MG/0.8 ML SYRINGE SC SCH (16:13)
[2024-06-26] VITALS (9 sets, daily range): BP systolic 108–134; BP diastolic 45–66; PULSE 65–89; RESP 14–20; TEMP 97.8–98.4; O2SAT 95–99
--- NOTE | 2024-06-26 14:56 | DVHPN2 ---
Subjective Congestive patient was complaining of right lower extremity pain found to have DVT, currently on Lovenox, risks benefits and alternatives of Lovenox including life-threatening bleeding disability explained to the patient in detail who understand verbalized the understanding and agreeable to plan. 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 Medications Current Medications Medications Dose Ordered Sig/Nalini Route Start Time Stop Time Status Last Admin Dose Admin Sennosides 17.2 mg HS PO 06/16/24 22:00 06/25/24 22:22 17.2 MG Polyethylene Glycol 17 gm DAILY PO 06/16/24 10:00 06/25/24 10:00 17 GM Furosemide 20 mg DAILY PO 06/16/24 10:00 06/26/24 09:46 20 MG Gabapentin 300 mg TID PO 06/16/24 06:00 06/26/24 13:38 300 MG Latanoprost 1 drop QPM EACHEYE 06/16/24 18:00 06/25/24 18:16 1 DROP Sertraline HCl 100 mg DAILY PO 06/16/24 10:00 06/26/24 09:48 100 MG Trazodone HCl 50 mg HS PO 06/16/24 22:00 06/25/24 21:14 50 MG Patient Own Medication 1 tab DAILY PO 06/16/24 10:00 UNV Levothyroxine Sodium 75 mcg DAILY@0700 PO 06/16/24 07:00 06/26/24 05:59 75 MCG Famotidine 20 mg BID PO 06/16/24 22:00 06/26/24 09:48 20 MG Sodium Biphosphate/ Sodium Phosphate 135 ml Q6HP PRN [place] 06/17/24 14:45 Dextrose/Sodium Chloride 1,000 ml @ 100 mls/hr Q10H IV 06/19/24 10:30 06/26/24 13:38 100 MLS/HR Ondansetron HCl 4 mg Q4HP PRN IV 06/19/24 10:30 Acetaminophen 650 mg Q6HP PRN PO 06/19/24 10:30 Morphine Sulfate 1 mg Q4HP PRN IV 06/19/24 10:30 06/20/24 11:50 1 MG Docusate Sodium 100 mg BID PO 06/19/24 22:00 06/25/24 10:01 100 MG Oxycodone/ Acetaminophen 1 tab Q4HP PRN PO 06/20/24 12:15 06/25/24 18:18 1 TAB Enoxaparin Sodium 120 mg Q12HR@0600,1800 [place] 06/25/24 15:46 06/26/24 06:03 120 MG Laboratory Results Laboratory Tests 06/23/24 06:24 Urinalysis Test 06/15/24 19:55 Urine Color Light-yellow (Yellow) Urine Clarity Clear (Clear) Urine pH 6.0 (5.0-9.0) Urine Specific [place] 1.012 (1.001-1.035) Urine Protein Negative (Negative) Urine Ketones Negative (Negative) Urine Blood Negative /uL (Negative) Urine Nitrite Negative (Negative) Urine Bilirubin Negative (Negative) Urine Urobilinogen Normal mg/dL (Negative) Urine Leukocyte Esterase Negative /uL (Negative) Urine RBC <1 /hpf (0 - 4) Urine WBC 1 /hpf (0 - 5) Urine Squamous Epithelial Cells Few /hpf (<5) Urine Bacteria None seen /hpf (None Seen) Urine Glucose Normal mg/dL (Normal) Assessment/Plan Assessment/Plan 79-year-old female with a known history of hypertension, peripheral neuropathy, hypothyroidism who initially presented to the hospital with the back pain found to have 1. acute lumbar back pain status post spinal decompression at L3-4-5 level 2. Facial rash suspect secondary to anesthesia, resolved 3. Hypertension 4. Peripheral neuropathy 5. Hypothyroidism 6. Constipation resolved 7. Right superficial femoral DVT -pain meds as tolerated, therapeutic Lovenox -orthopedic spine surgery follow up. -discharge plan once pain is better. Plan discussed with: Patient My Orders Orders - MARTIN VALDIVIA MD Procedure Category Date Status Time Enoxaparin Sodium PHA 06/25/24 In Process (Lovenox) 15:46 Date of Service: Jun 26, 2024 Billing Provider: MARTIN VALDIVIA MD Common Visit Codes: NOT BILLABLE MARTIN VALDIVIA MD Jun 26, 2024 14:56
[2024-06-27] VITALS (7 sets, daily range): BP systolic 106–124; BP diastolic 44–67; PULSE 60–78; RESP 15–18; TEMP 97.5–98.9; O2SAT 95–98
[2024-06-27] MEDS ORDERED: SENN-58 PO (16:24)
[2024-06-27] MEDS ORDERED: NALO4SPR2 (16:24)
[2024-06-27] MEDS ORDERED: APIX5TAB PO (16:24)
[2024-06-27] MEDS ORDERED: PERCOT PO (16:24)
--- NOTE | 2024-06-27 16:27 | DVHDS2 ---
Discharge Summary Date of Admission Jun 15, 2024 at 21:40 Date of Discharge: Jun 27, 2024 Labs/Diagnostic Data: Laboratory Results Test 06/23/24 06:24 06/19/24 11:29 06/19/24 07:50 06/18/24 08:53 White Blood Count 12.9 10^3/uL (4.4-10.8) Red Blood Count 2.97 10^6/uL (4.0-5.20) Hemoglobin 8.4 g/dL (12.2-16.2) Hematocrit 25.8 % (36.0-46.0) Mean Corpuscular Volume 86.8 fL (80.0-100.0) Mean Corpuscular Hemoglobin 28.4 pg (28.0-32.0) Mean Corpuscular Hemoglobin Concent 32.7 g/dL (32.0-36.0) Red Cell Distribution Width 14.6 % (11.8-14.3) Platelet Count 239 10^3/uL (140-450) Mean Platelet Volume 8.5 fL (6.9-10.8) Neutrophils (%) (Auto) % (37.0-80.0) Lymphocytes (%) (Auto) % (10.0-50.0) Monocytes (%) (Auto) % (0.0-12.0) Basophils (%) (Auto) % (0.0-2.0) Neutrophils # (Auto) 10 ^3/uL (1.6-8.6) Lymphocytes # (Auto) 10 ^3/uL (0.4-5.4) Monocytes # (Auto) 10 ^3/uL (0-1.3) Differential Total Cells Counted 100.0 (100) Neutrophils % (Manual) 90 (37.0-80.0) Band Neutrophils % (Manual) 0 Lymphocytes % (Manual) 6 (10.0-50.0) Monocytes % (Manual) 4 (0-12) Eosinophils % (Manual) 0 (0-7) Basophils % (Manual) 0 (0.0-2.0) Metamyelocytes % (manual) 0 Myelocytes % (Manual) 0 Promyelocytes % (Manual) 0 Blast Cells % (Manual) 0 Reactive Lymphocytes 0 Platelet Estimate Adequate Red Blood Cell Morphology Normal Sodium Level 142 mmol/L (136-145) Potassium Level 4.5 mmol/L (3.5-5.1) Chloride Level 110 mmol/L (98-107) Carbon Dioxide Level 26 mmol/L (20-31) Anion Gap 6 (5-15) Blood Urea Nitrogen 36 mg/dL (9-23) Creatinine 0.80 mg/dL (0.550-1.02) Glomerular Filtration Rate Calc 74 mL/min (>90) BUN/Creatinine Ratio 45.0 (10.0-20.0) Serum Glucose 233 mg/dL (74-106) Calcium Level 9.9 mg/dL (8.7-10.4) Magnesium Level 2.0 mg/dL (1.6-2.6) POC Glucose 209 mg/dl (70-106) Eosinophils (%) (Auto) 0.0 % (0.0-7.0) Eosinophils # (Auto) 0 10 ^3/uL (0-0.8) Basophils # (Auto) 0 10 ^3/uL (0-0.2) Nucleated Red Blood Cells 0.0 % Hemoglobin A1c 6.4 % A1C (<5.7) Lactate Dehydrogenase 122 U/L (120-246) Prothrombin Time 11.1 sec (9.3-11.8) Prothrombin Time INR 1.05 (0.9-1.15) Total Bilirubin 0.2 mg/dL (0.2-1.0) Aspartate Amino Transferase (AST) 13 U/L (13-40) Alanine Aminotransferase (ALT) 10 U/L (7-40) Alkaline Phosphatase 51 U/L (46-116) Total Protein 6.7 g/dL (5.7-8.2) Albumin 4.0 g/dL (3.2-4.8) Test 06/15/24 19:55 Urine Color Light-yellow (Yellow) Urine Clarity Clear (Clear) Urine pH 6.0 (5.0-9.0) Urine Specific [place] 1.012 (1.001-1.035) Urine Protein Negative (Negative) Urine Ketones Negative (Negative) Urine Blood Negative /uL (Negative) Urine Nitrite Negative (Negative) Urine Bilirubin Negative (Negative) Urine Urobilinogen Normal mg/dL (Negative) Urine Leukocyte Esterase Negative /uL (Negative) Urine RBC <1 /hpf (0 - 4) Urine WBC 1 /hpf (0 - 5) Urine Squamous Epithelial Cells Few /hpf (<5) Urine Bacteria None seen /hpf (None Seen) Urine Glucose Normal mg/dL (Normal) Other Laboratory Tests 06/23/24 06:24 Condition at Discharge: Stable Final Diagnosis/Problems List 79-year-old female with a known history of hypertension, peripheral neuropathy, hypothyroidism who initially presented to the hospital with the back pain found to have 1. acute lumbar back pain status post spinal decompression at L3-4-5 level 2. Facial rash suspect secondary to anesthesia 3. Hypertension 4. Peripheral neuropathy 5. Hypothyroidism Discharge Disposition: Home with Health Services Discharge Instruct/Medications Diet: Cardiac 2g Na,low cholest Activity: See Comment Activity comment: As tolerated Follow Up/Referral: Follow up with the PCP in 1-2 weeks Follow up with the orthopedic spine surgery in one to two weeks Medications: as prescribed and Resume home medications per discharge list New Medications: Apixaban Base (Eliquis) 5 Mg Tab 5 MG PO BID, #90 TAB Naloxone HCl (Narcan) 4 Mg/0.1 Ml Spr 4 MG NA Q5MINP PRN, #1 SPRAY Oxycodone W/ Acetaminophen (Percocet 5/325MG) 1 Tab Tb 1 TAB PO Q6HPRN PRN, #20 TAB Continued Medications: Furosemide (Furosemide) 20 Mg Tab 20 MG PO DAILY for 30 Days, MG Gabapentin (Gabapentin) 300 Mg Cap 300 MG PO TID for 30 Days, MG Latanoprost (Latanoprost) 0.005 % [facility] 1 DROP EACHEYE QPM, #7.5 ML 3 Refills Levothyroxine Sodium (Levothyroxine Sodium) 75 Mcg Tab 1 TAB PO DAILY, #30 TAB 5 Refills Pantoprazole Sodium Sesquihydr (Protonix) 40 Mg Tab 40 MG PO DAILY, #30 TAB Senna (Senokot) 8.6 Mg Tab 8.6 MG PO DAILY@DINNER, #20 TAB (This prescription has been renewed) Sertraline Hcl (Sertraline Hcl) 50 Mg Tab 100 MG PO DAILY for 30 Days, MG Trazodone Hcl (Trazodone Hcl) 50 Mg Tab 50 MG PO HS, MG Discontinued Medications: Hydrocodone-Acetaminophen (Hydrocodone Bitartrate/AC 7.5-325 mg) 1 Tab Tab 1 TAB PO TID, TAB Triamterene (Triamterene) 50 Mg Cap 50 MG PO DAILY, CAP Discharge Statement: "Patient was advised to return to the ER or call 911 if any headaches, dizziness, shortness of breath, chest pain, abdominal pain, bleeding, fevers, or worsening of medical condition. Patient was counseled about treatment plan, medications, possible side effects, patientverbalized understanding. All questions were answered to the best of my ability. This discharge took greater then 30 minutes in planning, reviewing documentation, counseling the patient, and discussing with other team members." DME: Diagnosis: Intractable back pain. status post spinal decompression/fusion ASSESSMENT ASSESSMENT Assessment 79-year-old female with a known history of hypertension, peripheral neuropathy, hypothyroidism who initially presented to the hospital with the back pain found to have 1. acute lumbar back pain status post spinal decompression at L3-4-5 level 2. Facial rash suspect secondary to anesthesia 3. Hypertension 4. Peripheral neuropathy 5. Hypothyroidism ROBBIN REDDING MD Jun 27, 2024 16:27
== END 2024-06-27 18:37 | disposition home health service (06) | DRG 448 ==
LOC: ER 11:03 → TELE 21:40 → TELE-EAST 23:16 → TELE-E-ADS 06-26 00:45 → TELE-CENTR 06-26 16:37
PROVIDERS: ADMIT Nurse Practitioner Family; ATTEND Internal Medicine
PROC: 01NB0ZZ Release Lumbar Nerve, Open Approach (ICD-10-PCS; 2024-06-19)
PROC: 00NY0ZZ Release Lumbar Spinal Cord, Open Approach (ICD-10-PCS; 2024-06-19)
PROC: 4A11X4G Monitoring of Peripheral Nervous Electrical Activity, Intraoperative, External Approach (ICD-10-PCS; 2024-06-19)
PROC: 0SG1070 Fusion of 2 or more Lumbar Vertebral Joints with Autologous Tissue Substitute, Anterior Approach, Anterior Column, Open Approach (ICD-10-PCS; principal; 2024-06-19 08:13)
DX: M48.062 Spinal stenosis, lumbar region with neurogenic claudication (principal); I82.411 Acute embolism and thrombosis of right femoral vein; Z68.42 Body mass index [BMI] 45.0-49.9, adult; M46.1 Sacroiliitis, not elsewhere classified; I73.9 Peripheral vascular disease, unspecified; E66.01 Morbid (severe) obesity due to excess calories; M47.816 Spondylosis without myelopathy or radiculopathy, lumbar region; G62.9 Polyneuropathy, unspecified; E03.9 Hypothyroidism, unspecified; R21 Rash and other nonspecific skin eruption; K59.00 Constipation, unspecified; N18.9 Chronic kidney disease, unspecified; I12.9 Hypertensive chronic kidney disease with stage 1 through stage 4 chronic kidney disease, or unspecified chronic kidney disease; M13.861 Other specified arthritis, right knee; M13.851 Other specified arthritis, right hip; T41.45XA Adverse effect of unspecified anesthetic, initial encounter; Y92.238 Other place in hospital as the place of occurrence of the external cause; Z79.899 Other long term (current) drug therapy
CPT/HCPCS: 36415; 71045; 72100; 72148; 76000; 80048; 80053; 81001; 82962; 83036; 83615; 83735; 85007; 85025; 85027; 85610; 86850; 86900; 86901; 93005; 93306; 93970; 97110; 97116; 97162; 97163; 97530; G0378; J1100; J1885; J1956; J2003; J2250; J2405; J2704; J7042

== ENCOUNTER 2024-07-03 17:32 | Inpatient (IN) | payer BC ==
[~2024-07-03] VITALS: Ht 162.6 cm; Wt 106.3 kg
[~2024-07-03 17:32] MED LIST: APIX5TAB PO; FURO20TA3 PO; GABA-1250 PO; LATA0.008 EACHEYE; LEVO75TA6 PO; NALO4SPR2; PANT40TA2 PO; PERCOT PO; SENN-58 PO; SERT-206 PO; TRAZ-227 PO
[2024-07-03] MEDS: HYDROcodone-ACET 5/325MG TAB PO ONE (18:00)
--- NOTE | 2024-07-03 18:05 | ED.PDOC ---
HPI Comments 79 y.o female with PMH of bilateral leg DVT, HTN and CKF, presents to the ED via EMS for a chief complaint of chest tightness associated with SOB and dizziness on exertion that started 3 days ago. Patient reports recent spinal decompression at L3-4-5 level on 06/19/24, was discharged on 06/27/24 feeling better, was able to ambulate fine without assistance and has no pain at that time. Patient states symptoms came on set spontaneously three days ago. Patient is on Eliquis. Vital signs were stable on arrival Chief Complaint: Shortness of Breath Time Seen by MD: 17:58 Primary Care Provider: WARNER Reviewed Notes: Nurses Notes, Asbestos Abatement Worker Notes, Medications, Allergies Allergies: Coded Allergies: NO KNOWN ALLERGIES (Unverified , 06/15/24) Home Meds Active Scripts Apixaban Base (ELIQUIS) 5 Mg Tab, 5 MG PO BID, #90 TAB Prov:ROBBIN REDDING MD 06/27/24 Naloxone HCl (Narcan) 4 Mg/0.1 Ml Spr, 4 MG NA Q5MINP PRN, #1 SPRAY Prov:ROBBIN REDDING MD 06/27/24 Oxycodone W/ Acetaminophen (Percocet 5/325MG) 1 Tab Tb, 1 TAB PO Q6HPRN PRN, #20 TAB Prov:ROBBIN REDDING MD 06/27/24 Senna (Senokot) 8.6 Mg Tab, 8.6 MG PO DAILY@DINNER, #20 TAB Prov:ROBBIN REDDING MD 06/27/24 Reported Medications Latanoprost (LATANOPROST) 0.005 % Tracy, 1 DROP EACHEYE QPM, #7.5 ML 3 Refills 06/16/24 Trazodone Hcl (Trazodone Hcl) 50 Mg Tab, 50 MG PO HS, MG 06/16/24 Pantoprazole Sodium Sesquihydr (Protonix) 40 Mg Tab, 40 MG PO DAILY, #30 TAB 06/16/24 Sertraline Hcl (Sertraline Hcl) 50 Mg Tab, 100 MG PO DAILY for 30 Days, MG 06/16/24 Gabapentin (Gabapentin) 300 Mg Cap, 300 MG PO TID for 30 Days, MG 06/16/24 Furosemide (Furosemide) 20 Mg Tab, 20 MG PO DAILY for 30 Days, MG 06/16/24 Levothyroxine Sodium (Levothyroxine Sodium) 75 Mcg Tab, 1 TAB PO DAILY, #30 TAB 5 Refills 06/16/24 Discontinued Reported Medications Hydrocodone-Acetaminophen (Hydrocodone Bitartrate/AC 7.5-325 mg) 1 Tab Tab, 1 TAB PO TID, TAB 06/16/24 Triamterene (Triamterene) 50 Mg Cap, 50 MG PO DAILY, CAP 06/16/24 Information Source: Patient, Emergency Med Personnel Mode of Arrival: EMS Severity: Moderate Timing: Days (3) Duration: Since onset Location: Substernal Radiation: No Radiation Quality: Tightness Onset: At Rest PE Risk Factors: Recent Surgery History of: None Modifying Factors: Nothing Associated Signs and Symptoms: SOB Past Medical History PAST MEDICAL HISTORY: CKF, HTN, Thyroid Past Medical History (Other): DVT bilateral legs Surgical History: Unknown Surgical History (Other): Recent spinal fusion surgery PRODUCTION EXPEDITER History: No Pertinent PRODUCTION EXPEDITER History Family History Family History: Unknown Social History Smoker: Non-Smoker Alcohol: Denies ETOH Use Drugs: Denies Drug Use Lives In: Home Constitutional: denies: chills, diaphoresis, fatigue, fever, malaise, sweats, weakness, others EENTM: denies: blurred vision, double vision, ear bleeding, ear discharge, ear drainage, ear pain, ear ringing, eye pain, eye redness, hearing loss, mouth pain, mouth swelling, nasal discharge, nose bleeding, nose congestion, nose pain, photophobia, tearing, throat pain, throat swelling, voice changes, others Respiratory: reports: SOB at rest, shortness of breath, SOB with excertion; denies: cough, hemoptysis, orthopnea, stridor, wheezing, others Cardiovascular: reports: chest pain; denies: dizzy spells, diaphoresis, Dyspnea on exertion, edema, irregular heart beat, left arm pain, lightheadedness, palpitations, PND, syncope, others Gastrointestinal: denies: abdomen distended, abdominal pain, blood streaked bowels, constipated, diarrhea, dysphagia, difficulty swallowing, hematemesis, melena, nausea, poor appetite, poor fluid intake, rectal bleeding, rectal pain, vomiting, others Genitourinary: denies: abnormal vagina bleeding, burning, dyspareunia, dysuria, flank pain, frequency, hematuria, incontinence, pain, , vagina discharge, urgency, others Neurological: reports: dizziness; denies: fainting, headache, left sided numbness, left sided weakness, numbness, paresthesia, pre-existing deficit, right sided numbness, right sided weakness, seizure, speech problems, tingling, tremors, weakness, others Musculoskeletal: denies: back pain, gout, joint pain, joint swelling, muscle pain, muscle stiffness, neck pain, others Integumetry: denies: bruises, change in color, change in hair/nails, dryness, laceration, lesions, lumps, rash, wounds, others Allergic/Immunocompromised: denies: Difficulty Healing, Frequent Infections, Hives, Itching, others Hematologic/Lymphatic: denies: anemia, blood clots, easy bleeding, easy bruising, swollen glands, others Endocrine: denies: excessive hunger, excessive sweating, excessive thirst, excessive urination, flushing, intolerance to cold, intolerance to heat, unexplained weight gain, unexplained weight loss, others Psychiatric: denies: anxiety, bipolar disorder, depression, hopeless, panic disorder, schizophrenia, sleepless, suicidal, others All Other Systems: Reviewed and Negative Physical Exam General Appearance: Moderate Distress (Patient presents in moderate distress at time of evaluation.), Obese HEENT: Normal ENT Inspection, Pharynx Normal, TMs Normal Neck: Full Range of Motion, Non-Tender, Normal, Normal Inspection Respiratory: Chest Non-Tender, No Accessory Muscle Use, No Respiratory Distress, Other (Patchy rhonchi appreciated in bilateral lung cortez. No accessory muscle use. No signs of respiratory distress.) Cardiovascular: No Edema, No JVD, No Murmur, No Gallop, Normal Peripheral Pulses, Regular Rate/Rhythm Breast Exam: Deferred Gastrointestinal: No Organomegaly, Non Tender, No Pulsatile Mass, Normal Bowel Sounds, Soft Genitalia: Deferred Pelvic: Deferred Rectal: Deferred Extremities: No calf tenderness, Normal capillary refill, No pedal edema Neurologic: Alert, Normal Affect, Normal Mood, No Sensory Deficits Cerebellar Function: NOT DONE Reflexes: NOT DONE Skin: Dry, Normal Color, Warm Lymphatic: No Adenopathy Was a procedure done? Was a procedure done?: No CP Differential Dx Differential Diagnosis: A-Flutter, TN, N/A Differential Diagnosis: CHF Differential Diagnosis: Angina, Chest Wall Pain, Pericarditis, Pulmonary Embolus X-Ray, Labs, Meds, VS Vital Signs Date Time Temp Pulse Resp B/P (MAP) Pulse Ox O2 Delivery O2 Flow Rate FiO2 07/04/24 03:00 76 14 140/62 (88) 97 07/04/24 00:00 80 07/04/24 00:00 83 20 146/65 (92) 96 07/03/24 22:00 98.0 79 12 135/74 (94) 97 98.0 07/03/24 20:00 81 07/03/24 19:30 98.0 74 21 124/53 (76) 96 98.0 07/03/24 18:53 74 14 131/65 (87) 96 07/03/24 18:47 99 98 98 Nasal Cannula* 3 32 07/03/24 18:47 98 Nasal Cannula* 3 32 07/03/24 17:51 74 07/03/24 17:40 98.5 90 16 117/77 (90) 100 Lab Test 07/04/24 00:29 07/03/24 21:07 07/03/24 18:57 07/03/24 18:00 Range/Units Urine Color Yellow Yellow Urine Clarity Clear Clear Urine pH 6.0 5.0-9.0 Urine Specific [place] 1.014 1.001-1.035 Urine Protein 1+ H Negative Urine Ketones 1+ H Negative Urine Blood Trace H Negative /uL Urine Nitrite Negative Negative Urine Bilirubin Negative Negative Urine Urobilinogen Normal Negative mg/dL Urine Leukocyte Esterase 2+ Negative /uL Urine RBC 1 0 - 4 /hpf Urine WBC 35 0 - 5 /hpf Urine WBC Clumps Present None Seen /hpf Urine Squamous Epithelial Cells Few <5 /hpf Urine Bacteria None seen None Seen /hpf Urine Yeast (Budding) Occasional None Seen /hpf Urine Glucose Normal Normal mg/dL Troponin I High Sensitivity 28 28 30 </=34 ng/L White Blood Count 7.9 4.4-10.8 10^3/uL Red Blood Count 2.99 L 4.0-5.20 10^6/uL Hemoglobin 8.3 L 12.2-16.2 g/dL Hematocrit 26.1 L 36.0-46.0 % Mean Corpuscular Volume 87.1 80.0-100.0 fL Mean Corpuscular Hemoglobin 27.8 L 28.0-32.0 pg Mean Corpuscular Hemoglobin Concent 31.9 L 32.0-36.0 g/dL Red Cell Distribution Width 15.0 H 11.8-14.3 % Platelet Count 330 140-450 10^3/uL Mean Platelet Volume 7.5 6.9-10.8 fL Neutrophils (%) (Auto) 37.0-80.0 % Lymphocytes (%) (Auto) 10.0-50.0 % Monocytes (%) (Auto) 0.0-12.0 % Basophils (%) (Auto) 0.0-2.0 % Neutrophils # (Auto) 1.6-8.6 10 ^3/uL Lymphocytes # (Auto) 0.4-5.4 10 ^3/uL Monocytes # (Auto) 0-1.3 10 ^3/uL Differential Total Cells Counted 100.0 100 Neutrophils % (Manual) 72 37.0-80.0 Band Neutrophils % (Manual) 5 Lymphocytes % (Manual) 12 10.0-50.0 Monocytes % (Manual) 10 0-12 Eosinophils % (Manual) 0 0-7 Basophils % (Manual) 0 0.0-2.0 Metamyelocytes % (manual) 0 Myelocytes % (Manual) 1 Promyelocytes % (Manual) 0 Blast Cells % (Manual) 0 Reactive Lymphocytes 0 Platelet Estimate Adequate D-Dimer, Quantitative 0.95 H 0.0-0.49 mg/L FEU Sodium Level 141 136-145 mmol/L Potassium Level 3.5 3.5-5.1 mmol/L Chloride Level 104 98-107 mmol/L Carbon Dioxide Level 30 20-31 mmol/L Anion Gap 7 5-15 Blood Urea Nitrogen 13 9-23 mg/dL Creatinine 0.79 0.550-1.02 mg/dL Glomerular Filtration Rate Calc 76 >90 mL/min BUN/Creatinine Ratio 16.5 10.0-20.0 Serum Glucose 146 H 74-106 mg/dL Lactic Acid Level 1.2 0.4-2.0 mmol/L Calcium Level 9.3 8.7-10.4 mg/dL Total Bilirubin 0.2 0.2-1.0 mg/dL Aspartate Amino Transferase (AST) 18 13-40 U/L Alanine Aminotransferase (ALT) 16 7-40 U/L Alkaline Phosphatase 64 46-116 U/L B-Type Natriuretic Peptide 311.93 0-100 pg/mL Total Protein 5.3 L 5.7-8.2 g/dL Albumin 3.4 3.2-4.8 g/dL Lipase 19 12-53 U/L Current Medications Medications (Trade) Dose Ordered Sig/Nalini Route Start Time Stop Time Status Last Admin Acetaminophen/ Hydrocodone Bitart ([place] 5/325MG Tab) 1 tab ONCE ONCE PO 07/03/24 18:00 07/03/24 18:02 DC 07/04/24 01:00 Ceftriaxone Sodium 50 ml @ 100 mls/hr ONCE ONCE IV 07/04/24 02:45 07/04/24 03:14 DC 07/04/24 02:45 X-Ray, Labs, Meds, VS Comment All studies performed the ED worry evaluated by me personally. Laboratories were remarkable for a significant urinary tract infection as well as an elevated D-dimer, acute CHF exacerbation as well as anemia. Patient CT angio was pending at time of this note. Patient will be admitted for continued evaluation of shortness a breath concerns as well as management of her congestive heart failure issues and IV antibiotics to address her urinary tract infection. Discussed patient presentation as well as imaging and laboratories studies with provider Jaime Muñoz. He agreed to accept the patient as an admit. Time of 1ST Reevaluation: 02:39 Reevaluation 1ST: Improved Consultation: PCP Patient Education/Counseling: Diagnosis, Treatment, Prognosis Family Education/Counseling: Diagnosis, Treatment, No Family Present Departure 1 Departure Time of Disposition: 02:40 Impression: Primary Impression: Shortness of breath Additional Impressions: Acute exacerbation of CHF (congestive heart failure) Elevated d-dimer Anemia UTI (urinary tract infection) Disposition: ADMITTED INPATIENT Condition: Stable Discharged With: Self Critical Care Note Critical Care Time?: No Stability Stability form required: No I personally scribed for TAYE LLOYD PAC ([email or web address]) on 07/03/24 at 18:05. Electronically submitted by Bibiana Britt ([facility]). TAYE LLOYD PAC Jul 03, 2024 18:05
[2024-07-03 18:36] LABS: Hematocrit 26.1 % (36.0-46.0); Hemoglobin 8.3 g/dL (12.2-16.2); Mean Corpuscular Hemoglobin 27.8 pg (28.0-32.0); Mean Corpuscular Hgb Conc. 31.9 g/dL (32.0-36.0); Mean Corpuscular Volume 87.1 fL (80.0-100.0); Platelet Count (auto) 330 10^3/uL (140-450); Red Blood Cells 2.99 10^6/uL (4.0-5.20); White Blood Cell 7.9 10^3/uL (4.4-10.8)
[2024-07-03 18:38] LABS: Basophils % (manual) 0 (0.0-2.0); Blast Cells 0; Eosinophils % (manual) 0 (0-7); Metamyelocytes % 0; Promyelocytes % 0; Reactive Lymphocytes 0
[2024-07-03 18:47] VITALS: PULSE 99; RESP 98; O2SAT 98
[2024-07-03 19:07] LABS: Alanine Aminotransferase 16 U/L (7-40); Albumin 3.4 g/dL (3.2-4.8); Alkaline Phosphatase 64 U/L (46-116); Anion Gap 7 (5-15); Aspartate Aminotransferase 18 U/L (13-40); BUN/Creatinine Ratio 16.5 (10.0-20.0); Blood Urea Nitrogen 13 mg/dL (9-23); Calcium 9.3 mg/dL (8.7-10.4); Carbon Dioxide 30 mmol/L (20-31); Chloride 104 mmol/L (98-107); Lipase 19 U/L (12-53); Sodium 141 mmol/L (136-145)
[2024-07-03 19:09] LABS: Bilirubin, Total 0.2 mg/dL (0.2-1.0); Glucose 146 mg/dL (74-106); Potassium 3.5 mmol/L (3.5-5.1); Total Protein 5.3 g/dL (5.7-8.2)
[2024-07-03 19:15] LABS: Band Neutrophils % (manual) 5; Lymphocytes % (manual) 12 (10.0-50.0); Monocytes % (manual) 10 (0-12); Myelocytes % 1; Platelet Estimate Adequate
[2024-07-03] MEDS: IOHEXOL 350 MG/ML 100ML IJ ONE (20:10)
[2024-07-04] VITALS (15 sets, daily range): BP systolic 90–129; BP diastolic 50–65; PULSE 67–96; RESP 15–29; TEMP 98.2–98.7; O2SAT 95–98
[2024-07-04 01:34] LABS: Urine Bacteria None Seen /hpf (None Seen)
[2024-07-04 01:57] LABS: Urine Blood TRACE /uL (Negative); Urine Budding Yeast OCCASIONAL /hpf (None Seen); Urine Clarity Clear (Clear); Urine Color Yellow (Yellow); Urine Protein, UAD 1+ (Negative); Urine Specific Gravity 1.014 (1.001-1.035); Urine Urobilinogen Normal (Negative); Urine WBC 35 /hpf (0 - 5); Urine WBC Clumps PRESENT /hpf (None Seen)
[2024-07-04] MEDS: cefTRIAXone 1GM/50ML D5W 50 ML IV ONE (02:45)
[2024-07-04] MEDS: IOHEXOL 350 MG/ML 100ML IJ ONE (04:34)
--- NOTE | 2024-07-04 05:04 | DVH ---
INDICATION: Elevated D-dimer TECHNIQUE: Multidetector CTA of the chest was performed of the chest with 100 cc of intravenous contr ast. PULMONARY ANGIOGRAPHY PROTOCOL was utilized using a bolus-tracking technique centered on the rebecca n pulmonary artery. Coronal and sagittal multiplanar and MIP reformats were performed. Radiation Dose Information: CT Dose: CTDI volume is 27.61 mGy. Dose-length product is 1073.11 mGy*cm The dose indicators for CT are the volume Computed Tomography (CT) Dose Index (CTDIvol) and the Dose Length Product (DLP), and are measured in units of mGy and mGy-cm, respectively. These indicators are not patient dose, but values generated from the CT scanner acquisition factors. The report includes radiation exposure data for exposures received during this examination. Comparison: Chest radiograph performed on 06/18/2024. Findings: Pulmonary artery: Normal caliber of the pulmonary artery. There is a filling defect in right lower lobe segmental branch of the pulmonary artery consistent with pulmonary embolism. Lower neck: Normal thyroid. Lungs: There are scattered opacities in the right middle lobe, left upper and lower lobes. Pleura: No pleural effusion or significant pneumothorax. Central airways: Patent. Esophagus: Hiatal hernia. Heart/Vascular Structures: Normal heart size. RV to LV ratio measures 1.1. Normal caliber and enhance ment of the aorta. Lymph Nodes: Increased number of mediastinal lymph nodes measuring up to 9 mm. Musculoskeletal: No acute osseous abnormality. Upper abdomen: Limited portions of the upper abdomen are unremarkable. IMPRESSION: 1. Right lower lobe segmental pulmonary embolism. Elevated RV to LV ratio concerning for right heart strain.
[2024-07-04] MEDS ORDERED: NITROGLYCERIN 0.4 MG SL TAB SL PRN (05:45)
[2024-07-04] MEDS ORDERED: MORPHINE SULFATE INJ 2 MG/ml SYRG IV PRN ×2 (05:45)
[2024-07-04] MEDS ORDERED: ACETAMINOPHEN 325 MG TAB PO PRN (05:45)
--- NOTE | 2024-07-04 05:50 | DVHHP2 ---
AZ BASILIO ELECTRICAL MAINTENANCE TECHNICIAN 07/04/24 0550: History of Present Illness Reason for Visit: Chest pain, short of breath History of Present Illness 79-year-old female with past medical history Of DVT on Eliquis, CHF, Recent recent lumbar surgery In May Presents with complaints of chest pain, shortness of breath, dizziness. Patient endorsed She felt like she was going to faint. Patient states she has been compliant with her medication. Recently discharged at the end of May for lumbar surgery from the hospital. During The emergency department evaluation D Dimer was found to be elevated 0.95. At such time CT Angio of the chest was ordered It was positive for an acute pulmonary embolism of the right lower lobe. Patient denies fevers, chills, Palpitations, nausea, vomiting, Abdominal pain. Cardiovascular: CHF Smoke: No ALCOHOL: none Drugs: None Lives: with Family Review of Systems Constitutional: Yes: Weakness; No: Fever, Chills, Sweats, Malaise, Other Eyes: No: Pain, Vision change, Conjunctivae inflammation, Eyelid inflammation, Other, Redness ENT: No: Ear pain, Ear discharge, Nose pain, Nose discharge, Nose congestion, Mouth pain, Mouth swelling, Throat pain, Throat swelling, Other Respiratory: Shortness of breath; No: Cough, Dry, SOB with excertion, Wheezing, Hemoptysis, Pleuritic Pain, Sputum, Wheezing, Other Cardiovascular: Chest Pain; No: Palpitations, Orthopnea, Paroxysmal Noc. Dyspnea, Edema, Lt Headedness, Other Gastrointestinal: No: Nausea, Vomiting, Abdominal Pain, Diarrhea, Constipation, Melena, Hematochezia, Other Genitourinary: No Dysuria, No Frequency, No Incontinence, No Hematuria, No Retention, No Other Musculoskeletal: No: other, neck pain, shoulder pain, arm pain, back pain, hand pain, leg pain, foot pain Skin: No: Rash, Lesions, Jaundice, Bruising, Other Neurological: Weakness; No: Numbness, Incoordination, Change in speech, Confusion, Seizures, Other Allergies: Coded Allergies: NO KNOWN ALLERGIES (Unverified , 06/15/24) Medications Current Medications Medications Dose Ordered Sig/Nalini Route Start Time Stop Time Status Last Admin Dose Admin Acetaminophen 650 mg Q6HP PRN PO 07/04/24 05:45 UNV Acetaminophen/ Hydrocodone Bitart 1 tab Q4HP PRN PO 07/04/24 05:45 UNV Ondansetron HCl 4 mg Q4HP PRN IV 07/04/24 05:45 UNV Morphine Sulfate 2 mg Q4HPRN PRN IV 07/04/24 05:45 UNV Nitroglycerin 0.4 mg Q5MINP PRN SL 07/04/24 05:45 UNV Morphine Sulfate 2 mg Q30M PRN IV 07/04/24 05:45 UNV Heparin Sodium/ Dextrose 250 ml @ 18.81 mls/ hr [id number] IV 07/04/24 05:45 UNV Ceftriaxone Sodium 50 ml @ 100 mls/hr DAILY IV 07/04/24 10:00 UNV Exam Vital Signs Vital Signs Date Time Temp Pulse Resp B/P (MAP) Pulse Ox O2 Delivery O2 Flow Rate FiO2 07/04/24 04:00 76 12 140/62 (88) 97 07/03/24 22:00 98.0 98.0 07/03/24 18:47 Nasal Cannula* 3 32 General Appearance: Alert, Oriented X3, Cooperative, moderate distress HEENT: Atraumatic, PERRLA, EOMI Respiratory: Clear to auscultation, Normal air movement Cardiovascular: Regular rate, Normal S1, Normal S2 Abdominal: Normal bowel sounds, Soft, No tenderness Extremities: No clubbing, No cyanosis, Other (BLE Pitting edema2+) Skin: No rashes Neuro: Normal speech Psych/Mental Status: Mental status NL, Mood NL Labs/Xrays Labs Test 07/04/24 00:29 07/03/24 21:07 07/03/24 18:00 Range/Units Urine Color Yellow Yellow Urine Clarity Clear Clear Urine pH 6.0 5.0-9.0 Urine Specific [place] 1.014 1.001-1.035 Urine Protein 1+ H Negative Urine Ketones 1+ H Negative Urine Blood Trace H Negative /uL Urine Nitrite Negative Negative Urine Bilirubin Negative Negative Urine Urobilinogen Normal Negative mg/dL Urine Leukocyte Esterase 2+ Negative /uL Urine RBC 1 0 - 4 /hpf Urine WBC 35 0 - 5 /hpf Urine WBC Clumps Present None Seen /hpf Urine Squamous Epithelial Cells Few <5 /hpf Urine Bacteria None seen None Seen /hpf Urine Yeast (Budding) Occasional None Seen /hpf Urine Glucose Normal Normal mg/dL Troponin I High Sensitivity 28 </=34 ng/L White Blood Count 7.9 4.4-10.8 10^3/uL Red Blood Count 2.99 L 4.0-5.20 10^6/uL Hemoglobin 8.3 L 12.2-16.2 g/dL Hematocrit 26.1 L 36.0-46.0 % Mean Corpuscular Volume 87.1 80.0-100.0 fL Mean Corpuscular Hemoglobin 27.8 L 28.0-32.0 pg Mean Corpuscular Hemoglobin Concent 31.9 L 32.0-36.0 g/dL Red Cell Distribution Width 15.0 H 11.8-14.3 % Platelet Count 330 140-450 10^3/uL Mean Platelet Volume 7.5 6.9-10.8 fL Neutrophils (%) (Auto) 37.0-80.0 % Lymphocytes (%) (Auto) 10.0-50.0 % Monocytes (%) (Auto) 0.0-12.0 % Basophils (%) (Auto) 0.0-2.0 % Neutrophils # (Auto) 1.6-8.6 10 ^3/uL Lymphocytes # (Auto) 0.4-5.4 10 ^3/uL Monocytes # (Auto) 0-1.3 10 ^3/uL Differential Total Cells Counted 100.0 100 Neutrophils % (Manual) 72 37.0-80.0 Band Neutrophils % (Manual) 5 Lymphocytes % (Manual) 12 10.0-50.0 Monocytes % (Manual) 10 0-12 Eosinophils % (Manual) 0 0-7 Basophils % (Manual) 0 0.0-2.0 Metamyelocytes % (manual) 0 Myelocytes % (Manual) 1 Promyelocytes % (Manual) 0 Blast Cells % (Manual) 0 Reactive Lymphocytes 0 Platelet Estimate Adequate D-Dimer, Quantitative 0.95 H 0.0-0.49 mg/L FEU Sodium Level 141 136-145 mmol/L Potassium Level 3.5 3.5-5.1 mmol/L Chloride Level 104 98-107 mmol/L Carbon Dioxide Level 30 20-31 mmol/L Anion Gap 7 5-15 Blood Urea Nitrogen 13 9-23 mg/dL Creatinine 0.79 0.550-1.02 mg/dL Glomerular Filtration Rate Calc 76 >90 mL/min BUN/Creatinine Ratio 16.5 10.0-20.0 Serum Glucose 146 H 74-106 mg/dL Lactic Acid Level 1.2 0.4-2.0 mmol/L Calcium Level 9.3 8.7-10.4 mg/dL Total Bilirubin 0.2 0.2-1.0 mg/dL Aspartate Amino Transferase (AST) 18 13-40 U/L Alanine Aminotransferase (ALT) 16 7-40 U/L Alkaline Phosphatase 64 46-116 U/L B-Type Natriuretic Peptide 311.93 0-100 pg/mL Total Protein 5.3 L 5.7-8.2 g/dL Albumin 3.4 3.2-4.8 g/dL Lipase 19 12-53 U/L Assessment/Plan Assessment/Plan Acute pulmonary embolism, right lower lobe segmental Acute UTI Hx lumbar surgery Hx DVT on Eliquis Good morning Dr. Zoran burciaga for you at [facility]18Acute pulmonary embolism Plan Admit ANN Cardiology consult. Echocardiogram. As needed anti-hypertensive for optimal BP management. Pulmonology consult. Bronchodilators. As needed supplemental O2 to maintain oxygen saturation greater than 93%. Hematology consult (PE while on Eliquis) Heparin drip GI ppx protonix / DVT ppx heparin gtt Plan discussed with: Patient My Orders Orders - AZ BASILIO NP Procedure Category Date Status Time Admit ADMIT 07/04/24 Transmitted 05:35 Code Status CODE 07/04/24 Transmitted 05:35 Vital Signs [facility] 07/04/24 In Process 05:35 Review Orders With JERRY 07/04/24 In Process Adm. 05:35 Encourage Activity As JERRY 07/04/24 In Process Tolerate 05:35 Npo (Nothing By DIET 07/04/24 Transmitted Mouth) Diet Breakfast Oxygen By Face Mask RT 07/04/24 Transmitted 05:35 Acetaminophen Tablet PHA 07/04/24 Transmitted (Tylenol Tablet) 05:45 Notify Of Changes JERRY 07/04/24 In Process From Base 05:35 Advance Directive [facility] 07/04/24 In Process 05:35 Echo 2d Mode Cardiac US 07/04/24 Transmitted DOP 05:35 Basic Metabolic Panel LAB 07/05/24 Verified 05:00 Basic Metabolic Panel LAB 07/06/24 Verified 05:00 Basic Metabolic Panel LAB 07/07/24 Verified 05:00 Basic Metabolic Panel LAB 07/08/24 Verified 05:00 Basic Metabolic Panel LAB 07/09/24 Verified 05:00 Complete Blood Count LAB 07/05/24 Verified 05:00 Complete Blood Count LAB 07/06/24 Verified 05:00 Complete Blood Count LAB 07/07/24 Verified 05:00 Complete Blood Count LAB 07/08/24 Verified 05:00 Complete Blood Count LAB 07/09/24 Verified 05:00 Patient Condition ORDERS 07/04/24 Transmitted 05:35 Allergies [facility] 07/04/24 In Process 05:35 Hydrocodone-Acet [facility] 07/04/24 Transmitted 5/325mg Tab ([place] 05:45 Ondansetron Hcl [facility] 07/04/24 Transmitted (Zofran) 05:45 Morphine 2mg Iv Q4hprn [facility] 07/04/24 Transmitted 05:45 Sequential [facility] 07/04/24 In Process Compression Device Nitroglycerin [facility] 07/04/24 Transmitted Sublingual (Ntrostat 05:45 Morphine Sulfate [facility] 07/04/24 Transmitted Injection 05:45 Stat Ekg For Chest [facility] 07/04/24 In Process Pain 05:35 Notify Md Of Changes [facility] 07/04/24 In Process From Base 05:35 Enroute Controller For [facility] 07/04/24 In Process 24 Hours 05:35 Emergency Dysrhythmia [facility] 07/04/24 In Process Protocol 05:35 Rhythm Strips Once [facility] 07/04/24 In Process Every Shift 05:35 Oxygen By Nasal RT 07/04/24 Transmitted Cannula 05:35 Platelet Monitoring [facility] 07/04/24 In Process 05:35 Vte Protocol Initiated [facility] 07/04/24 In Process 05:35 Heparin Per [facility] 07/04/24 In Process Standardized Proce 05:35 Discontinue All Im [facility] 07/04/24 In Process Injections 05:35 PTPTT LAB 07/04/24 Transmitted 05:35 Partial LAB 07/04/24 Transmitted Thromboplastin Time 05:35 Complete Blood Count LAB 07/04/24 Transmitted 05:35 Heparin Sodium PHA 07/04/24 Transmitted (Porcine) 05:45 Heparin Drip/D5w PHA 07/04/24 Transmitted 100units/Ml 05:45 * Hematology/Oncology CONS 07/04/24 Transmitted Consult 05:35 * Cardiology Consult CONS 07/04/24 Transmitted 05:35 *Consult CONS 07/04/24 Transmitted / 05:35 Ceftriaxone Ivpb PHA 07/04/24 Transmitted Rocephin 10:00 Date of Service: Jul 04, 2024 Billing Provider: MARTIN VALDIVIA MD Common Visit Codes: NOT BILLABLE MARTIN VALDIVIA MD 07/05/24 1919: Review of Systems Allergies: Coded Allergies: NO KNOWN ALLERGIES (Unverified , 06/15/24) Additional Comments Additional Comments Additional Comments Patient was seen and evaluated by me I agree with the assessment and plan as outlined by my nurse practitioner. AZ BASILIO NP Jul 04, 2024 05:50 MARTIN VALDIVIA MD Jul 05, 2024 19:19
[2024-07-04 07:06] LABS: INR 1.13 (0.9-1.15); Prothrombin Time 11.9 sec (9.3-11.8)
[2024-07-04 07:10] LABS: INR 1.13 (0.9-1.15); Prothrombin Time 11.9 sec (9.3-11.8)
[2024-07-04 07:27] LABS: Hemoglobin 8.2 g/dL (12.2-16.2); Mean Corpuscular Volume 87.1 fL (80.0-100.0)
[2024-07-04 07:29] LABS: Hematocrit 25.3 % (36.0-46.0); Mean Corpuscular Hgb Conc. 32.2 g/dL (32.0-36.0); Platelet Count (auto) 310 10^3/uL (140-450); Red Blood Cells 2.91 10^6/uL (4.0-5.20); Red Cell Distribution Width 15.1 % (11.8-14.3); White Blood Cell 6.7 10^3/uL (4.4-10.8)
[2024-07-04 07:34] LABS: Basophils % (manual) 0 (0.0-2.0); Blast Cells 0; Metamyelocytes % 0; Myelocytes % 0; Promyelocytes % 0; Reactive Lymphocytes 0
[2024-07-04 08:08] LABS: Band Neutrophils % (manual) 5; Eosinophils % (manual) 1 (0-7); Lymphocytes % (manual) 17 (10.0-50.0); Monocytes % (manual) 12 (0-12)
[2024-07-04 08:09] LABS: Platelet Estimate Adequate
[2024-07-04] MEDS: HEPARIN SODIUM (PORCINE) 5000 UNITS/ML 1ML VIAL IV ONE (09:19)
[2024-07-04] MEDS: HEPARIN DRIP/D5W 100UNITS/ML 250 ML IV SCH (09:21)
--- NOTE | 2024-07-04 09:58 | DVH ---
Bilateral lower extremity venous duplex Clinical History: PE. History of DVT on 06/25/2024 Comparison: US BILAT LOWER DVT on DOS: 06/25/24 Technique: Duplex Doppler evaluation of the deep venous systems of both lower extremities from the common femora l veins to the popliteal veins including color Doppler and spectral/pulsed waveform analysis was perf ormed. Findings: RIGHT SIDE: The common femoral vein demonstrates appropriate compressibility and waveform variability. There is compressibility/patency of the great saphenous vein at the proximal thigh. The femoral vein demonstrates occlusive DVT in the superficial femoral vein. The deep femoral vein demonstrates appropriate compressibility and waveform variability. The popliteal vein demonstrates appropriate compressibility and waveform variability. There is color flow at the tibioperoneal trunk and in the posterior tibial vein. A 2.5 x 1.7 x 1.6 cm right popliteal fossa rodgers's cyst noted. Subcutaneous edema in the calf. LEFT SIDE: The common femoral vein demonstrates appropriate compressibility and waveform variability. There is compressibility/patency of the great saphenous vein at the proximal thigh. The femoral vein demonstrates appropriate compressibility and waveform variability. The deep femoral vein demonstrates appropriate compressibility and waveform variability. The popliteal vein demonstrates partial compressibility and flow. There is color flow at the tibioperoneal trunk and in the posterior tibial vein. There is subcutaneous edema in the calf. Impression: 1. Persistent right femoral vein occlusive DVT. 2. Interval development of partial DVT in the left popliteal vein. 3. Mild subcutaneous edema in bilateral calves. 4. Small right Rodgers's cyst.
[2024-07-04] MEDS: HEPARIN IN NS 1000Units/500mL 1,500 ML ONE (11:53)
[2024-07-04] MEDS: LIDOCAINE 2%HCL (LOCAL ANESTH.) INJ 20ML MDV ONE (11:53)
--- NOTE | 2024-07-04 12:39 | ECG ---
[facility] Test Date: 2024-07-03 Test Time: 17:51:42 Pat Name: GIAN SULLIVAN Department: ER Room: 0292 Gender: F Invasive Manager: GINNA : 1945 Requested By: JAMES REYEZ Order Number: [id number] Reading MD: Victorino Benson Measurements Intervals [place] Rate: 74 P: 85 SD: 162 QRS: -2 QRSD: 97 T: 87 QT: 378 QTc: 420 Interpretive Statements Sinus rhythm Atrial premature complex Low voltage, precordial leads Probable anteroseptal infarct, old Electronically Signed On 07-10-2024 14:47:02 PST by Victorino Benson Please click the below link to view image of tracing.
[2024-07-04] MEDS: fentaNYL CITRATE 100 MCG/2 ML VL ONE (12:47)
[2024-07-04] MEDS: ANGIOMAX 250 MG VIAL IV ONE ×2 (12:47→13:21)
[2024-07-04] MEDS: MIDAZOLAM HCL 2MG/2ML 2ml VIAL (1mg/ml) ONE (12:47)
[2024-07-04] MEDS: SODIUM CHL 0.9% 50 ML ONE ×2 (12:47→13:21)
[2024-07-04] MEDS: ONDANSETRON HCL 4 MG/2 ML VIAL ONE (12:48)
[2024-07-04] MEDS: IODIXANOL 320MG/ML 100ML BTL IV ONE (12:52)
[2024-07-04] MEDS: diphenhdrAMINE HCL 50 MG/1 ML VL ONE (15:19)
[2024-07-04] MEDS: APIXABAN 5 MG TAB PO ONE (15:19)
--- NOTE | 2024-07-04 15:26 | DVHOP ---
DATE OF SURGERY: 07/04/2024 PROCEDURES PERFORMED: Pulmonary thrombectomy and pulmonary angiography. Angiography of the right iliac and right femoral artery, deep femoral artery and popliteal artery on the right lower extremity. Thrombectomy of the pulmonary artery. DESCRIPTION OF PROCEDURE: Prior local anesthesia with 2% lidocaine to the left groin, a full informed consent obtained. The patient was prepped and draped in the usual fashion followed by placement of a 6-[place] sheath and an angiographic evaluation of the left iliac, which showed patency. We then placed a catheter into the right of iliac vein and placed a Quick-Cross catheter across with a help of an Advantage wire. We were able to access the superficial femoral vein and deep femoral vein. We placed a Quick-Cross catheter and performed angiographic evaluation. It revealed that there was no significant thrombus present. We then took the pigtail catheter and placed it into the pulmonary artery with a J-curved guidewire. We took angiographic evaluations of both right and left pulmonary artery as well as pressures. We then performed thrombectomy with a Triever 24 engage in the right as well as a Triever 20, which was angled. We were able to remove minimal amount of clot. Angiographic evaluation initially revealed a thrombus in the mid pulmonary artery on the right and in its secondary branches. It appears that these were displaced and dissolved as well as some extraction noted. After several runs, we were able to remove the catheter and place a FlowSaver over the left femoral vein. The patient tolerated the procedure well. There were no complications. IMPRESSION: Successful thrombectomy of the pulmonary artery and evaluation of the right and left iliacs, right femoral vein and pulmonary thrombectomy and pulmonary angiography. PA pressures were approximately 60 mmHg systolic. There was no significant change post procedure. The patient was kept on Eliquis. MD ELIEL Balbuena/BRO TID: [id number] RECEIPT: [id number]
[2024-07-04] MEDS: HYDROcodone-ACET 5/325MG TAB PO PRN (16:55)
[2024-07-04] MEDS: FUROSEMIDE 40 MG/4 ML VIAL IV ONE (17:02)
--- NOTE | 2024-07-04 17:42 | DVHINCON2 ---
Date of service: Jul 04, 2024 Referring Physician FRAN Muñoz Reason for Consultation Pulmonary embolism History of Present Illness 79-year-old woman history of bilateral lower extremity DVT, hypertension, chronic kidney disease who presented with a chief complaint of chest tightness associated with shortness of breath and dizziness on exertion at began three days ago. She had a recent spinal decompression about three, four and five on June 19, 2024. She was recently discharged on June 27, 2024. She was able to ambulate fine without any assistance. She had no time at the time. Symptoms suddenly began three days ago. She was on Eliquis. Pulmonary consultation is called for evaluation of pulmonary embolism. Review of systems: 14 point review of systems is negative unless otherwise note d above. Past medical history: Chronic kidney disease, hypertension, thyroid disease, DVT bilateral lower extremities Past surgical history: Recent spinal fusion surgery Medications: Reviewed Allergies: No known drug allergies. Family history: No family history of premature CAD. No family history of lung disease. Social history: Nonsmoker. No alcohol or illicit drug use. Family History: Patient reports no known family medical history. Allergies: Coded Allergies: NO KNOWN ALLERGIES (Unverified , 06/15/24) Home Meds Active Scripts Apixaban Base (ELIQUIS) 5 Mg Tab, 5 MG PO BID, #90 TAB Prov:ROBBIN REDDING MD 06/27/24 Naloxone HCl (Narcan) 4 Mg/0.1 Ml Spr, 4 MG NA Q5MINP PRN, #1 SPRAY Prov:ROBBIN REDDING MD 06/27/24 Oxycodone W/ Acetaminophen (Percocet 5/325MG) 1 Tab Tb, 1 TAB PO Q6HPRN PRN, #20 TAB Prov:ROBBIN REDDING MD 06/27/24 Senna (Senokot) 8.6 Mg Tab, 8.6 MG PO DAILY@DINNER, #20 TAB Prov:ROBBIN REDDING MD 06/27/24 Reported Medications Latanoprost (LATANOPROST) 0.005 % Tracy, 1 DROP EACHEYE QPM, #7.5 ML 3 Refills 06/16/24 Trazodone Hcl (Trazodone Hcl) 50 Mg Tab, 50 MG PO HS, MG 06/16/24 Pantoprazole Sodium Sesquihydr (Protonix) 40 Mg Tab, 40 MG PO DAILY, #30 TAB 06/16/24 Sertraline Hcl (Sertraline Hcl) 50 Mg Tab, 100 MG PO DAILY for 30 Days, MG 06/16/24 Gabapentin (Gabapentin) 300 Mg Cap, 300 MG PO TID for 30 Days, MG 06/16/24 Furosemide (Furosemide) 20 Mg Tab, 20 MG PO DAILY for 30 Days, MG 06/16/24 Levothyroxine Sodium (Levothyroxine Sodium) 75 Mcg Tab, 1 TAB PO DAILY, #30 TAB 5 Refills 06/16/24 Discontinued Reported Medications Hydrocodone-Acetaminophen (Hydrocodone Bitartrate/AC 7.5-325 mg) 1 Tab Tab, 1 TAB PO TID, TAB 06/16/24 Triamterene (Triamterene) 50 Mg Cap, 50 MG PO DAILY, CAP 06/16/24 Current Medications Current Medications Medications (Trade) Dose Ordered Sig/Nalini Route PRN Reason Start Time Stop Time Status Last Admin Acetaminophen (Tylenol Tablet) 650 mg Q6HP PRN PO PAIN SCALE 1-3 OR TEMP>100.4 07/04/24 05:45 Acetaminophen/ Hydrocodone Bitart ([place] 5/325MG Tab) 1 tab Q4HP PRN PO MODERATE PAIN (4-6 PAIN SCALE) 07/04/24 05:45 07/04/24 16:58 DC 07/04/24 16:55 Ondansetron HCl (Zofran) 4 mg Q4HP PRN IV NAUSEA / VOMITING 07/04/24 05:45 Morphine Sulfate 2 mg Q4HPRN PRN IV SEVERE PAIN (7-10 PAIN SCALE) 07/04/24 05:45 Nitroglycerin (Ntrostat Sublingual) 0.4 mg Q5MINP PRN SL FOR CHEST PAIN 07/04/24 05:45 Morphine Sulfate 2 mg Q30M PRN IV FOR CHEST PAIN 07/04/24 05:45 Heparin Sodium/ Dextrose 250 ml @ 19 mls/hr [id number] IV 07/04/24 08:00 07/04/24 14:46 DC 07/04/24 09:21 Ceftriaxone Sodium 50 ml @ 100 mls/hr Q24H IV 07/04/24 22:00 Apixaban (Eliquis) 5 mg BID PO 07/04/24 22:00 Furosemide (Lasix Tablet) 20 mg DAILY PO 07/05/24 10:00 Gabapentin (Neurontin Capsule) 300 mg TID PO 07/04/24 22:00 Latanoprost (Xalatan) 1 drop QPM EACHEYE 07/04/24 18:00 Oxycodone/ Acetaminophen (Percocet 5/ 325MG Tablet) 1 tab Q6HPRN PRN PO MODERATE PAIN (4-6 PAIN SCALE) 07/04/24 16:15 Pantoprazole Sodium (Protonix Tablet) 40 mg DAILY PO 07/05/24 10:00 Sertraline HCl (Zoloft) 100 mg DAILY PO 07/05/24 10:00 Trazodone HCl (Desyrel) 50 mg HS PO 07/04/24 22:00 Levothyroxine Sodium (Synthroid Tablet) 75 mcg DAILY PO 07/05/24 10:00 Vital Signs Vital Signs Date Time Temp Pulse Resp B/P (MAP) Pulse Ox O2 Delivery O2 Flow Rate FiO2 07/04/24 15:39 91 24 109/54 (72) 97 07/04/24 14:25 98.7 98.7 07/04/24 08:00 Nasal Cannula* 3 32 Physical Exam Gen.: Patient lying in bed in no apparent distress. On supplemental oxygen. He is breathing comfortably on room air. Head: Normocephalic, atraumatic Eyes: EOMI/PERRLA. Ears: Normal hearing. Normal anatomy. Neck/trachea: Trachea midline, supple. Nose: Normal external anatomy. Mouth: Moist mucous membranes. Chest: Fair air entry bilaterally. No wheezing or rhonchi. Cardio vascular: Positive S1, positive S2. Regular rate and rhythm. Abdomen: Positive bowel sounds in all 4 quadrants. Soft, non-tender, non- distended. : Deferred. Rectal: Deferred Skin: Warm, dry. Extremities: 2+ radial pulses bilaterally. No lower extremity edema. Neuro: Awake, alert, oriented x3. No gross motor or sensory deficits. Cranial nerves II through XII intact. Gait not assessed. Labs/Diagnostic Data Labs Test 07/04/24 06:22 07/04/24 00:29 07/03/24 21:07 07/03/24 18:00 Range/Units White Blood Count 6.7 4.4-10.8 10^3/uL Red Blood Count 2.91 L 4.0-5.20 10^6/uL Hemoglobin 8.2 L 12.2-16.2 g/dL Hematocrit 25.3 L 36.0-46.0 % Mean Corpuscular Volume 87.1 80.0-100.0 fL Mean Corpuscular Hemoglobin 28.0 28.0-32.0 pg Mean Corpuscular Hemoglobin Concent 32.2 32.0-36.0 g/dL Red Cell Distribution Width 15.1 H 11.8-14.3 % Platelet Count 310 140-450 10^3/uL Mean Platelet Volume 7.6 6.9-10.8 fL Neutrophils (%) (Auto) 37.0-80.0 % Lymphocytes (%) (Auto) 10.0-50.0 % Monocytes (%) (Auto) 0.0-12.0 % Basophils (%) (Auto) 0.0-2.0 % Neutrophils # (Auto) 1.6-8.6 10 ^3/uL Lymphocytes # (Auto) 0.4-5.4 10 ^3/uL Monocytes # (Auto) 0-1.3 10 ^3/uL Differential Total Cells Counted 100.0 100 Neutrophils % (Manual) 65 37.0-80.0 Band Neutrophils % (Manual) 5 Lymphocytes % (Manual) 17 10.0-50.0 Monocytes % (Manual) 12 0-12 Eosinophils % (Manual) 1 0-7 Basophils % (Manual) 0 0.0-2.0 Metamyelocytes % (manual) 0 Myelocytes % (Manual) 0 Promyelocytes % (Manual) 0 Blast Cells % (Manual) 0 Reactive Lymphocytes 0 Platelet Estimate Adequate Prothrombin Time 11.9 H 9.3-11.8 sec Prothrombin Time INR 1.13 0.9-1.15 Activated Partial Thromboplast Time 28.0 24.5-34.5 SEC Urine Color Yellow Yellow Urine Clarity Clear Clear Urine pH 6.0 5.0-9.0 Urine Specific [place] 1.014 1.001-1.035 Urine Protein 1+ H Negative Urine Ketones 1+ H Negative Urine Blood Trace H Negative /uL Urine Nitrite Negative Negative Urine Bilirubin Negative Negative Urine Urobilinogen Normal Negative mg/dL Urine Leukocyte Esterase 2+ Negative /uL Urine RBC 1 0 - 4 /hpf Urine WBC 35 0 - 5 /hpf Urine WBC Clumps Present None Seen /hpf Urine Squamous Epithelial Cells Few <5 /hpf Urine Bacteria None seen None Seen /hpf Urine Yeast (Budding) Occasional None Seen /hpf Urine Glucose Normal Normal mg/dL Troponin I High Sensitivity 28 </=34 ng/L D-Dimer, Quantitative 0.95 H 0.0-0.49 mg/L FEU Sodium Level 141 136-145 mmol/L Potassium Level 3.5 3.5-5.1 mmol/L Chloride Level 104 98-107 mmol/L Carbon Dioxide Level 30 20-31 mmol/L Anion Gap 7 5-15 Blood Urea Nitrogen 13 9-23 mg/dL Creatinine 0.79 0.550-1.02 mg/dL Glomerular Filtration Rate Calc 76 >90 mL/min BUN/Creatinine Ratio 16.5 10.0-20.0 Serum Glucose 146 H 74-106 mg/dL Lactic Acid Level 1.2 0.4-2.0 mmol/L Calcium Level 9.3 8.7-10.4 mg/dL Total Bilirubin 0.2 0.2-1.0 mg/dL Aspartate Amino Transferase (AST) 18 13-40 U/L Alanine Aminotransferase (ALT) 16 7-40 U/L Alkaline Phosphatase 64 46-116 U/L B-Type Natriuretic Peptide 311.93 0-100 pg/mL Total Protein 5.3 L 5.7-8.2 g/dL Albumin 3.4 3.2-4.8 g/dL Lipase 19 12-53 U/L Assessment Impression: Pulmonary embolism Dyspnea due to pulmonary embolism Acute exacerbation of CHF Elevated D-dimer due to pulmonary embolism Anemia Urinary tract infection Obesity with a BMI of 30.3 Hiatal hernia Plan: CT of the chest demonstrates right lower lobe segmental pulmonary embolism. Elevated RV to LV ratio concerning for right heart strain. Scattered opacities in the right middle and left upper and lower lobes. No pleural effusion or pneumothorax. STAT CXR post-procedure due to respiratory distress. STAT ABG Supplemental oxygen 3 LPM via NC Keep O2 saturation above 92%. Continue antibiotics Follow up cultures. Patient having bilateral plaque goes post thrombectomy. Stat Lasix 40 mg IV push x1. Continue diuresis to maintain euvolemia. Monitor ins and outs. Monitor renal function. Monitor electrolytes. Supplement as necessary. Monitor hemoglobin closely due to anemia. D/w DAVID Lao Condition: Critical Prognosis: Poor given multiple comorbidities. Rest of plan per hospitalist and other consultants. A total of 36 minutes of critical care time was spent reviewing the patient record, examining the patient, making a diagnostic and therapeutic plan, discussing this plan with the medical personnel, following up on diagnostic studies and following the patient for clinical stability excluding any and all procedures. At least 50% of this time was spent in direct, [id number] contact. Thank you FRAN Muñoz for allowing me to participate in this patient's care. Further recommendations will depend on patient's clinical course. Please do not hesitate to contact me if you have any questions or concerns. This medical document was created using an electronic medical record system with [employer] dictation system. Although this document has been carefully reviewed, there may still be some phonetic and typographical errors. These areas are purely typographical due to imperfections of the software programs, and do not reflect any compromise in the patient's medical care. Plan discussed with: Patient, Other (DAVID Lao MD) MICHAEL QUINTERO MD Jul 04, 2024 17:42
--- NOTE | 2024-07-04 18:10 | DVH ---
EXAM: XR Chest, 1 View CLINICAL INDICATION: Respiratory distress TECHNIQUE: Frontal view of the chest. COMPARISON: XY CHEST PORTABLE on DOS: 06/18/24 FINDINGS: LUNGS AND PLEURAL SPACES: Unremarkable. No consolidation. No pneumothorax. HEART: Unremarkable. No cardiomegaly. MEDIASTINUM: Unremarkable. Normal mediastinal contour. BONES/JOINTS: Unremarkable. No acute fracture. OTHER FINDINGS: . . . IMPRESSION: No acute cardiopulmonary process. HS:Y
[2024-07-04] MEDS: LATANOPROST 0.005 % OPTH(EYE) SOL 2.5ML EACHEYE SCH (18:32)
[2024-07-04 19:58] LABS: Basophils # (auto) 0.1 10 ^3/uL (0-0.2); Basophils % (auto) 1.1 % (0.0-2.0); Eosinophils # (auto) 0 10 ^3/uL (0-0.8); Eosinophils % (auto) 0.3 % (0.0-7.0); Hemoglobin 8.4 g/dL (12.2-16.2); Lymphocytes # (auto) 0.9 10 ^3/uL (0.4-5.4); Lymphocytes % (auto) 11.8 % (10.0-50.0); Mean Corpuscular Hemoglobin 28.2 pg (28.0-32.0); Mean Corpuscular Hgb Conc. 32.4 g/dL (32.0-36.0); Mean Corpuscular Volume 87.3 fL (80.0-100.0); Monocytes # (auto) 0.8 10 ^3/uL (0-1.3); Monocytes % (auto) 11.3 % (0.0-12.0); Neutrophils # (auto) 5.5 10 ^3/uL (1.6-8.6); Neutrophils % (auto) 75.5 % (37.0-80.0); Nucleated Red Blood Cells % 0.4 %; Platelet Count (auto) 301 10^3/uL (140-450); Red Blood Cells 2.98 10^6/uL (4.0-5.20); Red Cell Distribution Width 15.3 % (11.8-14.3); White Blood Cell 7.3 10^3/uL (4.4-10.8)
[2024-07-04] MEDS: GABAPENTIN 300 MG CAP PO SCH (22:06)
[2024-07-04] MEDS: APIXABAN 5 MG TAB PO SCH (22:07)
[2024-07-04] MEDS: traZODone HCL 50 MG TAB PO SCH (22:07)
[2024-07-04] MEDS: cefTRIAXone 1GM/50ML D5W 50 ML IV SCH (22:08)
--- NOTE | 2024-07-04 23:39 | DVHINCON2 ---
DATE OF CONSULTATION: 07/04/2024 HISTORY OF PRESENT ILLNESS: An 79-year-old lady with a history of pain in her lower back, underwent surgery several weeks ago. She was found to have a DVT in her right lower extremity. Noted history of hypertension, chronic kidney disease. Noted to have progressive shortness of breath over the last 24 hours. She was found to have a right lower lobe pulmonary emboli. She was placed on apixaban prior to her discharge, but she continued to have shortness of breath that developed and increased in severity and intensity over the last 24 hours. She does have a history of increased BMI. Prediabetic. History of what appears to be bilateral DVTs. FAMILY HISTORY: Otherwise noncontributory. SOCIAL HISTORY: Nondrinker, nonsmoker. REVIEW OF SYSTEMS: CONSTITUTIONAL: From a constitutional standpoint, negative. No fevers, chills or weight loss. ENT: Negative. CARDIAC AND RESPIRATORY: With shortness of breath and dyspnea as noted above. Associated chest pressure yesterday. GASTROINTESTINAL/GENITOURINARY/NEUROLOGICAL: Dizziness as noted. MUSCULOSKELETAL: Negative. INTEGUMENTARY: Negative. ALLERGY/IMMUNOLOGY: Negative. HEMATOLOGIC/ENDOCRINE: Negative. PSYCHIATRIC: Negative. PHYSICAL EXAMINATION: GENERAL: She is awake, alert and oriented. She is in [id number] distress. VITAL SIGNS: Her blood pressure is 111/62 with respiration rate of 17, pulse of 74. O2 saturation is 97 on 3 liters. HEENT: Otherwise unremarkable. Orally well hydrated. Trachea is central. NECK: Supple. Thyroid is not palpable. No jugular venous distention, no bruits. LUNGS: Reveal good air entry. No rales or rhonchi. HEART: Reveals regular S1, S2, soft S4. ABDOMEN: Otherwise unremarkable. EXTREMITIES: Reveal adequate perfusion without clubbing or cyanosis. There is mild edema. Bilateral swelling of her lower extremity, more on the right. DIAGNOSTIC/LABORATORY DATA: Her CT angio shows right lower lobe segmental pulmonary emboli, elevated RV to LV ratios, with a heart strain noted. Her WBC count is 6000, hematocrit is 25. Chemistry shows normal chemistry panel, lactic acid is 1.2, calcium is 9.3, total protein is 5.3. D-dimer is 0.95. EKG shows sinus rhythm, nonspecific changes. IMPRESSION: Pulmonary emboli. Status post low back pain procedure by Dr. Worthington. Increased BMI. Anemia. RECOMMENDATIONS: Given her RV strain, we will schedule the patient for pulmonary thrombectomy. The patient may require thrombectomy of thrombus of the lower extremities. We will obtain an ultrasound of lower extremities with venous Doppler. She may require an IVC filter. We will follow up with subsequent echo as well. Continue anticoagulation. Hold off on Eliquis for now. Consider hematologic evaluation to determine coagulopathy, not responsive to Eliquis. Victorino Benson MD GAP/ARV/VIS TID: [id number] RECEIPT: [id number]
[2024-07-05] VITALS (8 sets, daily range): BP systolic 96–136; BP diastolic 42–72; PULSE 61–99; RESP 14–20; TEMP 97.8–98.5; O2SAT 90–97
[2024-07-05 08:40] LABS: Basophils # (auto) 0 10 ^3/uL (0-0.2); Eosinophils # (auto) 0.1 10 ^3/uL (0-0.8); Lymphocytes # (auto) 0.8 10 ^3/uL (0.4-5.4); Mean Corpuscular Hemoglobin 29.5 pg (28.0-32.0)
[2024-07-05 08:42] LABS: Basophils % (auto) 0.8 % (0.0-2.0); Eosinophils % (auto) 1.1 % (0.0-7.0); Hematocrit 22.9 % (36.0-46.0); Hemoglobin 7.5 g/dL (12.2-16.2); Lymphocytes % (auto) 14.8 % (10.0-50.0); Mean Corpuscular Hgb Conc. 32.8 g/dL (32.0-36.0); Monocytes # (auto) 0.5 10 ^3/uL (0-1.3); Monocytes % (auto) 9.8 % (0.0-12.0); Neutrophils % (auto) 73.5 % (37.0-80.0); Nucleated Red Blood Cells % 0.2 %; Platelet Count (auto) 232 10^3/uL (140-450); Red Blood Cells 2.54 10^6/uL (4.0-5.20); Red Cell Distribution Width 16.2 % (11.8-14.3); White Blood Cell 5.5 10^3/uL (4.4-10.8)
[2024-07-05 08:46] LABS: Anion Gap 5 (5-15); Chloride 105 mmol/L (98-107); Sodium 144 mmol/L (136-145)
[2024-07-05 08:47] LABS: Calcium 9.3 mg/dL (8.7-10.4)
[2024-07-05 08:52] LABS: BUN/Creatinine Ratio 10.8 (10.0-20.0)
[2024-07-05 08:56] LABS: Blood Urea Nitrogen 8 mg/dL (9-23); Carbon Dioxide 34 mmol/L (20-31); Glucose 120 mg/dL (74-106); Potassium 3.2 mmol/L (3.5-5.1)
[2024-07-05] MEDS: PANTOPRAZOLE 40 MG TAB PO SCH (09:53)
[2024-07-05] MEDS: SERTRALINE HCL 50 MG TAB PO SCH (09:53)
[2024-07-05] MEDS: LEVOTHYROXINE SODIUM 25 MCG TAB PO SCH (09:53)
[2024-07-05] MEDS: FUROSEMIDE 20 MG TAB PO SCH (09:54)
--- NOTE | 2024-07-05 13:42 | DVH ---
EXAM: XY CHEST XRAY 1 VIEW TECHNIQUE: Single frontal chest radiograph CLINICAL HISTORY: interval changes s/p diuresis COMPARISON: XY CHEST XRAY 1 VIEW on DOS: 07/04/24, XY CHEST PORTABLE on DOS: 06/18/24 Findings/Impression: Frontal chest radiograph demonstrates no acute osseous or superficial soft tissue abnormalities. The trachea is midline. The cardiac silhouette and mediastinum are within normal limits. No pneumothorax, pleural effusions, or consolidations.
[2024-07-05] MEDS: OXYCODONE W/ ACETAMINOPHEN 5/325MG TABLET PO PRN (13:53)
[2024-07-05] MEDS: ONDANSETRON HCL 4 MG/2 ML VIAL IV PRN (17:48)
--- NOTE | 2024-07-05 19:21 | DVHPN2 ---
Subjective Patient is status post right pulmonary thrombectomy, currently feeling much better. Reviewed: Care Plan Changes from previous H/P or p: No Changes Eyes: No Pain, No Vision change, No Conjunctivae inflammation, No Eyelid inflammation, No Other, No Redness ENT: No Ear pain, No Ear discharge, No Nose pain, No Nose discharge, No Nose congestion, No Mouth pain, No Mouth swelling, No Throat pain, No Throat swelling, No Other Cardiovascular: Chest Pain; No Palpitations, No Orthopnea, No Paroxysmal Noc. Dyspnea, No Edema, No Lt Headedness, No Other Respiratory: No Cough, No Dry; Shortness of breath; No SOB with excertion, No Wheezing, No Hemoptysis, No Pleuritic Pain, No Sputum, No Other Gastrointestinal: No Nausea, No Vomiting, No Abdominal Pain, No Diarrhea, No Constipation, No Melena, No Hematochezia, No Other Genitourinary: No Dysuria, No Frequency, No Incontinence, No Hematuria, No Retention, No Other Musculoskeletal: No other, No neck pain, No shoulder pain, No arm pain, No back pain, No hand pain, No leg pain, No foot pain Skin: No Rash, No Lesions, No Jaundice, No Bruising, No Other Objective Vitals Vital Signs Date Time Temp Pulse Resp B/P (MAP) Pulse Ox O2 Delivery O2 Flow Rate FiO2 07/05/24 16:41 98.3 80 14 122/50 (74) 97 98.3 07/05/24 07:30 Nasal Cannula* 3 32 Intake/Output Intake and Output 07/05/24 07:00 Intake Total 364 ml Output Total 1600 ml Balance -1236 ml Intake Oral 345 ml IV Total 19 ml Output Urine Total 1600 ml Exam HEENT pupils are reactive Neck is supple CV is S1-S2 regular rate and rhythm Respiratory bilateral clear GI positive bowel sound Extremity no edema 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 Medications Current Medications Medications Dose Ordered Sig/Nalini Route Start Time Stop Time Status Last Admin Dose Admin Acetaminophen 650 mg Q6HP PRN PO 07/04/24 05:45 Ondansetron HCl 4 mg Q4HP PRN IV 07/04/24 05:45 07/05/24 17:48 4 MG Morphine Sulfate 2 mg Q4HPRN PRN IV 07/04/24 05:45 Nitroglycerin 0.4 mg Q5MINP PRN SL 07/04/24 05:45 Morphine Sulfate 2 mg Q30M PRN IV 07/04/24 05:45 Ceftriaxone Sodium 50 ml @ 100 mls/hr Q24H IV 07/04/24 22:00 07/04/24 22:08 100 MLS/HR Apixaban 5 mg BID PO 07/04/24 22:00 07/05/24 09:53 5 MG Furosemide 20 mg DAILY PO 07/05/24 10:00 Gabapentin 300 mg TID PO 07/04/24 22:00 07/05/24 13:44 300 MG Latanoprost 1 drop QPM EACHEYE 07/04/24 18:00 07/05/24 18:33 1 DROP Oxycodone/ Acetaminophen 1 tab Q6HPRN PRN PO 07/04/24 16:15 07/05/24 13:53 1 TAB Pantoprazole Sodium 40 mg DAILY PO 07/05/24 10:00 07/05/24 09:53 40 MG Sertraline HCl 100 mg DAILY PO 07/05/24 10:00 07/05/24 09:53 100 MG Trazodone HCl 50 mg HS PO 07/04/24 22:00 07/04/24 22:07 50 MG Levothyroxine Sodium 75 mcg DAILY PO 07/05/24 10:00 07/05/24 09:53 75 MCG Laboratory Results Laboratory Tests 07/05/24 07:45 Chemistry Test 07/05/24 07:45 Calcium Level 9.3 mg/dL (8.7-10.4) Urinalysis Test 07/04/24 00:29 Urine Color Yellow (Yellow) Urine Clarity Clear (Clear) Urine pH 6.0 (5.0-9.0) Urine Specific [place] 1.014 (1.001-1.035) Urine Protein 1+ (Negative) H Urine Ketones 1+ (Negative) H Urine Blood Trace /uL (Negative) H Urine Nitrite Negative (Negative) Urine Bilirubin Negative (Negative) Urine Urobilinogen Normal mg/dL (Negative) Urine Leukocyte Esterase 2+ /uL (Negative) Urine RBC 1 /hpf (0 - 4) Urine WBC 35 /hpf (0 - 5) Urine WBC Clumps Present /hpf (None Seen) Urine Squamous Epithelial Cells Few /hpf (<5) Urine Bacteria None seen /hpf (None Seen) Urine Yeast (Budding) Occasional /hpf (None Urine Glucose Normal mg/dL (Normal) Blood Gas Results Test 07/04/24 19:25 Arterial Blood pH 7.424 (7.350-7.450) FiO2 % 32.0 Assessment/Plan Assessment/Plan 79-year-old female with a known history of lumbar radiculopathy status post L3-4-5 lumbar spine surgery, hospital course was eventful for right lower extremity DVT started on Eliquis patient presented to the hospital with chest pain fainting and found to have 1. Acute pulmonary embolism right lower lobe segmental status post pulmonary thrombectomy 2. Urinary tract infection 3. Right lower extremity DVT 4. Lumbar radiculopathy status post L3-4-5 spine surgery -continue Eliquis, physical therapy evaluation and treatment Discharge plan Plan discussed with: Patient My Orders Orders - MARTIN VALDIVIA MD Procedure Category Date Status Time Mrsa Screen CARLIE 07/05/24 In Process 10:30 Date of Service: Jul 05, 2024 Billing Provider: MARTIN VALDIVIA MD Common Visit Codes: NOT BILLABLE MARTIN VALDIVIA MD Jul 05, 2024 19:21
--- NOTE | 2024-07-05 22:39 | DVHPN2 ---
Progress Note - Dictate Date Seen: Jul 05, 2024 Medical Necessity Reason Pt with a Central, PICC or Fol: No Subjective Patient seen and examined at bedside. Remains on supplemental oxygen Overnight events reviewed. vital signs Vital Sign Date Time Temp Pulse Resp B/P (MAP) Pulse Ox O2 Delivery O2 Flow Rate FiO2 07/05/24 21:00 98.1 99 18 96/42 (60) 90 98.1 07/05/24 20:00 Nasal Cannula* 3 32 Total Intake and Output 07/04/24 07/04/24 07/05/24 15:00 23:00 07:00 Intake Total 19 ml 345 ml Output Total 1600 ml Balance 19 ml -1255 ml medications Current Medications Medications Dose Ordered Sig/Nalini Route Start Time Stop Time Status Last Admin Dose Admin Acetaminophen 650 mg Q6HP PRN PO 07/04/24 05:45 Ondansetron HCl 4 mg Q4HP PRN IV 07/04/24 05:45 07/05/24 17:48 4 MG Morphine Sulfate 2 mg Q4HPRN PRN IV 07/04/24 05:45 Nitroglycerin 0.4 mg Q5MINP PRN SL 07/04/24 05:45 Morphine Sulfate 2 mg Q30M PRN IV 07/04/24 05:45 Ceftriaxone Sodium 50 ml @ 100 mls/hr Q24H IV 07/04/24 22:00 07/05/24 21:11 100 MLS/HR Apixaban 5 mg BID PO 07/04/24 22:00 07/05/24 21:11 5 MG Furosemide 20 mg DAILY PO 07/05/24 10:00 Gabapentin 300 mg TID PO 07/04/24 22:00 07/05/24 21:11 300 MG Latanoprost 1 drop QPM EACHEYE 07/04/24 18:00 07/05/24 18:33 1 DROP Oxycodone/ Acetaminophen 1 tab Q6HPRN PRN PO 07/04/24 16:15 07/05/24 13:53 1 TAB Pantoprazole Sodium 40 mg DAILY PO 07/05/24 10:00 07/05/24 09:53 40 MG Sertraline HCl 100 mg DAILY PO 07/05/24 10:00 07/05/24 09:53 100 MG Trazodone HCl 50 mg HS PO 07/04/24 22:00 07/05/24 21:11 50 MG Levothyroxine Sodium 75 mcg DAILY PO 07/05/24 10:00 07/05/24 09:53 75 MCG objective Gen.: Patient lying in bed in no apparent distress. On supplemental oxygen. Head: Normocephalic, atraumatic. Eyes: EOMI/PERRLA. Ears: Normal hearing. Normal anatomy. Neck/trachea: Trachea midline, supple. Nose: Normal external anatomy. Mouth: Moist mucous membranes. Chest: Decreased air entry bilaterally. No wheezing or rhonchi. Cardiovascular: Positive S1, positive S2. Regular rate and rhythm. Abdomen: Positive bowel sounds in all 4 quadrants. Soft, non-tender, non- distended. : Deferred. Rectal: Deferred. Skin: Warm, dry. Intact. Extremities: 2+ radial pulses bilaterally. No lower extremity edema. Neuro: Awake, alert, oriented x3. No gross motor or sensory deficits. Cranial nerves II through XII intact. Gait not assessed. laboratory and microbiology Laboratory Tests 07/05/24 07:45 Test 07/05/24 07:45 Range/Units Serum Glucose 120 H 74-106 mg/dL Assessment/Plan Impression: Pulmonary embolism Dyspnea due to pulmonary embolism Acute exacerbation of CHF Elevated D-dimer due to pulmonary embolism Anemia Urinary tract infection Obesity with a BMI of 30.3 Hiatal hernia Events: Remains on supplemental oxygen, 3 LPM NC Taper O2 as tolerated Patient improving s/p thrombectomy for PE. Continue antibiotics Incentive spirometry Eliquis BID Protonix for GI prophylaxis Diurese w/ Lasix 20 mg QD Monitor renal function. Monitor electrolytes. Supplement as necessary. Maintain euvolemia Potassium supplementation Obtain CXR now for interval changes s/p diuresis. Labs and imaging reviewed. Rest of plan as noted below. Plan: CT of the chest demonstrates right lower lobe segmental pulmonary embolism. Elevated RV to LV ratio concerning for right heart strain. Scattered opacities in the right middle and left upper and lower lobes. No pleural effusion or pneumothorax. STAT CXR post-procedure due to respiratory distress. STAT ABG Supplemental oxygen 3 LPM via NC Keep O2 saturation above 92%. Continue antibiotics Follow up cultures. Patient having bilateral plaque goes post thrombectomy. Stat Lasix 40 mg IV push x1. Continue diuresis to maintain euvolemia. Monitor ins and outs. Monitor renal function. Monitor electrolytes. Supplement as necessary. Monitor hemoglobin closely due to anemia. Prognosis: Poor given multiple comorbidities. Rest of plan per hospitalist and other consultants. Thank you FRAN Muñoz for allowing me to participate in this patient's care. Further recommendations will depend on patient's clinical course. Please do not hesitate to contact me if you have any questions or concerns. This medical document was created using an electronic medical record system with [employer] dictation system. Although this document has been carefully reviewed, there may still be some phonetic and typographical errors. These areas are purely typographical due to imperfections of the software programs, and do not reflect any compromise in the patient's medical care. Plan discussed with: Patient, Other (RN) MICHAEL QUINTERO MD Jul 05, 2024 22:39
[2024-07-06] VITALS (8 sets, daily range): BP systolic 103–112; BP diastolic 35–72; PULSE 70–88; RESP 14–19; TEMP 97.6–98.5; O2SAT 92–97
[2024-07-06 07:31] LABS: Basophils # (auto) 0 10 ^3/uL (0-0.2); Eosinophils # (auto) 0.1 10 ^3/uL (0-0.8); Monocytes # (auto) 0.2 10 ^3/uL (0-1.3); Neutrophils # (auto) 4.4 10 ^3/uL (1.6-8.6); White Blood Cell 5.1 10^3/uL (4.4-10.8)
[2024-07-06 07:35] LABS: Basophils % (auto) 0.3 % (0.0-2.0); Eosinophils % (auto) 2.1 % (0.0-7.0); Hematocrit 24.1 % (36.0-46.0); Hemoglobin 7.7 g/dL (12.2-16.2); Lymphocytes # (auto) 0.3 10 ^3/uL (0.4-5.4); Lymphocytes % (auto) 6.8 % (10.0-50.0); Mean Corpuscular Hemoglobin 27.7 pg (28.0-32.0); Mean Corpuscular Hgb Conc. 31.9 g/dL (32.0-36.0); Mean Corpuscular Volume 86.7 fL (80.0-100.0); Monocytes % (auto) 4.2 % (0.0-12.0); Neutrophils % (auto) 86.6 % (37.0-80.0); Nucleated Red Blood Cells % 0.1 %; Platelet Count (auto) 207 10^3/uL (140-450); Red Blood Cells 2.78 10^6/uL (4.0-5.20); Red Cell Distribution Width 15.1 % (11.8-14.3)
[2024-07-06 07:38] LABS: Chloride 104 mmol/L (98-107); Sodium 144 mmol/L (136-145)
[2024-07-06 07:39] LABS: Anion Gap 4 (5-15); Calcium 9.1 mg/dL (8.7-10.4)
[2024-07-06 07:44] LABS: BUN/Creatinine Ratio 14.5 (10.0-20.0); Blood Urea Nitrogen 12 mg/dL (9-23)
[2024-07-06 07:49] LABS: Carbon Dioxide 36 mmol/L (20-31); Glucose 124 mg/dL (74-106); Potassium 3.2 mmol/L (3.5-5.1)
--- NOTE | 2024-07-06 09:43 | DVHINCON2 ---
Date of service: Jul 06, 2024 Reason for Consultation Pulmonary embolism History of Present Illness Pastora Briones is a 79-year-old woman history of bilateral lower extremity DVT, hypertension, chronic kidney disease who presented with a chief complaint of chest tightness associated with shortness of breath and dizziness on exertion at began three days ago. She had a recent spinal decompression about three, four and five on June 19, 2024. She was recently discharged on June 27, 2024. She was able to ambulate fine without any assistance. She had no time at the time. Symptoms suddenly began three days ago. She was on Eliquis. Hematology-oncology consultation is called for evaluation of pulmonary embolism. 07/04/2024 CT Angio Chest with contrast: 1. Right lower lobe segmental pulmonary embolism. Elevated RV to LV ratio concerning for right heart strain. 07/04/2024 Bilateral lower extremity venous duplex 1. Persistent right femoral vein occlusive DVT. 2. Interval development of partial DVT in the left popliteal vein. 3. Mild subcutaneous edema in bilateral calves. 4. Small right Rodgers's cyst. On 07/04/2024, patient underewent a successful thrombectomy of the pulmonary artery and evaluation of the right and left iliacs, right femoral vein and pulmonary thrombectomy and pulmonary angiography. PA pressures were approximately 60 mmHg systolic. The patient was kept on Eliquis. During her last admission 06/25/2024, patient was diagnosed with an occlusive DVT at the right femoral vein. No left femoropopliteal venous thrombosis. Past Medical History Chronic kidney disease, hypertension, thyroid disease, DVT bilateral lower extremities Past Surgical History Recent spinal fusion surgery Family History: Patient reports no known family medical history. Allergies: Coded Allergies: NO KNOWN ALLERGIES (Unverified , 06/15/24) Home Meds Active Scripts Apixaban Base (ELIQUIS) 5 Mg Tab, 5 MG PO BID, #90 TAB Prov:ROBBIN REDDING MD 06/27/24 Naloxone HCl (Narcan) 4 Mg/0.1 Ml Spr, 4 MG NA Q5MINP PRN, #1 SPRAY Prov:ROBBIN REDDING MD 06/27/24 Oxycodone W/ Acetaminophen (Percocet 5/325MG) 1 Tab Tb, 1 TAB PO Q6HPRN PRN, #20 TAB Prov:ROBBIN REDDING MD 06/27/24 Senna (Senokot) 8.6 Mg Tab, 8.6 MG PO DAILY@DINNER, #20 TAB Prov:ROBBIN REDDING MD 06/27/24 Reported Medications Latanoprost (LATANOPROST) 0.005 % Tracy, 1 DROP EACHEYE QPM, #7.5 ML 3 Refills 06/16/24 Trazodone Hcl (Trazodone Hcl) 50 Mg Tab, 50 MG PO HS, MG 06/16/24 Pantoprazole Sodium Sesquihydr (Protonix) 40 Mg Tab, 40 MG PO DAILY, #30 TAB 06/16/24 Sertraline Hcl (Sertraline Hcl) 50 Mg Tab, 100 MG PO DAILY for 30 Days, MG 06/16/24 Gabapentin (Gabapentin) 300 Mg Cap, 300 MG PO TID for 30 Days, MG 06/16/24 Furosemide (Furosemide) 20 Mg Tab, 20 MG PO DAILY for 30 Days, MG 06/16/24 Levothyroxine Sodium (Levothyroxine Sodium) 75 Mcg Tab, 1 TAB PO DAILY, #30 TAB 5 Refills 06/16/24 Current Medications Current Medications Medications (Trade) Dose Ordered Sig/Nalini Route PRN Reason Start Time Stop Time Status Last Admin Furosemide (Lasix Tablet) 20 mg DAILY PO 07/05/24 10:00 Pantoprazole Sodium (Protonix Tablet) 40 mg DAILY PO 07/05/24 10:00 07/06/24 09:04 Sertraline HCl (Zoloft) 100 mg DAILY PO 07/05/24 10:00 07/06/24 09:04 Levothyroxine Sodium (Synthroid Tablet) 75 mcg DAILY PO 07/05/24 10:00 07/06/24 09:05 Review of Systems Negative, otherwise as stated above Vital Signs Vital Signs Date Time Temp Pulse Resp B/P (MAP) Pulse Ox O2 Delivery O2 Flow Rate FiO2 07/06/24 08:59 98.3 74 14 109/51 (70) 94 98.3 07/06/24 08:02 Nasal Cannula* 2 28 Physical Exam General: Patient lying in bed in no apparent distress. Head: Normocephalic, atraumatic. Eyes: EOMI/PERRLA. Ears: Normal hearing. Normal anatomy. Neck/trachea: Trachea midline, supple. Nose: Normal external anatomy. Mouth: Moist mucous membranes. Chest: Decreased air entry bilaterally. No wheezing or rhonchi. Cardiovascular: Positive S1, positive S2. Regular rate and rhythm. Abdomen: Positive bowel sounds in all 4 quadrants. Soft, non-tender, non- distended. Skin: Warm, dry. Intact. Extremities: 2+ radial pulses bilaterally. No lower extremity edema. Labs/Diagnostic Data Labs Test 07/06/24 06:32 07/04/24 19:25 07/04/24 06:22 07/04/24 00:29 Range/Units White Blood Count 5.1 4.4-10.8 10^3/uL Red Blood Count 2.78 L 4.0-5.20 10^6/uL Hemoglobin 7.7 L 12.2-16.2 g/dL Hematocrit 24.1 L 36.0-46.0 % Mean Corpuscular Volume 86.7 80.0-100.0 fL Mean Corpuscular Hemoglobin 27.7 L 28.0-32.0 pg Mean Corpuscular Hemoglobin Concent 31.9 L 32.0-36.0 g/dL Red Cell Distribution Width 15.1 H 11.8-14.3 % Platelet Count 207 140-450 10^3/uL Mean Platelet Volume 7.2 6.9-10.8 fL Neutrophils (%) (Auto) 86.6 H 37.0-80.0 % Lymphocytes (%) (Auto) 6.8 L 10.0-50.0 % Monocytes (%) (Auto) 4.2 0.0-12.0 % Eosinophils (%) (Auto) 2.1 0.0-7.0 % Basophils (%) (Auto) 0.3 0.0-2.0 % Neutrophils # (Auto) 4.4 1.6-8.6 10 ^3/uL Lymphocytes # (Auto) 0.3 L 0.4-5.4 10 ^3/uL Monocytes # (Auto) 0.2 0-1.3 10 ^3/uL Eosinophils # (Auto) 0.1 0-0.8 10 ^3/uL Basophils # (Auto) 0 0-0.2 10 ^3/uL Nucleated Red Blood Cells 0.1 % Sodium Level 144 136-145 mmol/L Potassium Level 3.2 L 3.5-5.1 mmol/L Chloride Level 104 98-107 mmol/L Carbon Dioxide Level 36 H 20-31 mmol/L Anion Gap 4 L 5-15 Blood Urea Nitrogen 12 9-23 mg/dL Creatinine 0.83 0.550-1.02 mg/dL Glomerular Filtration Rate Calc 71 >90 mL/min BUN/Creatinine Ratio 14.5 10.0-20.0 Serum Glucose 124 H 74-106 mg/dL Calcium Level 9.1 8.7-10.4 mg/dL Blood Gas Specimen Type Arterial Blood Gas Sample Site Right radial Blood Gas Patient Temperature 37.0 Arterial Blood Date Drawn [id number] Arterial Blood pH 7.424 7.350-7.450 Arterial Blood Partial Pressure CO2 48.7 H 32.0-45.0 mmHg Arterial Blood Partial Pressure O2 90.9 83.0-108.0 mmHg Arterial Blood HCO3 31.2 H 21.0-28.0 mmol/L Arterial Blood Oxygen Saturation 96.6 94.0-98.0 % Arterial Blood Base Excess 6.0 H -2.0-3.0 mmol/L Arterial Blood Oxyhemoglobin 95.6 94.0-98.0 % Arterial Blood Carboxyhemoglobin 0.3 L 0.5-1.5 % Arterial Blood Methemoglobin 0.7 0.0-1.5 % Luis Test Modified Blood Gas Total Hemoglobin 8.80 L 12.0-16.0 g/dL Blood Gas Liter Flow 3.00 Blood Gas Modality Nasal cannula FiO2 % 32.0 Differential Total Cells Counted 100.0 100 Neutrophils % (Manual) 65 37.0-80.0 Band Neutrophils % (Manual) 5 Lymphocytes % (Manual) 17 10.0-50.0 Monocytes % (Manual) 12 0-12 Eosinophils % (Manual) 1 0-7 Basophils % (Manual) 0 0.0-2.0 Metamyelocytes % (manual) 0 Myelocytes % (Manual) 0 Promyelocytes % (Manual) 0 Blast Cells % (Manual) 0 Reactive Lymphocytes 0 Platelet Estimate Adequate Prothrombin Time 11.9 H 9.3-11.8 sec Prothrombin Time INR 1.13 0.9-1.15 Activated Partial Thromboplast Time 28.0 24.5-34.5 SEC Urine Color Yellow Yellow Urine Clarity Clear Clear Urine pH 6.0 5.0-9.0 Urine Specific [place] 1.014 1.001-1.035 Urine Protein 1+ H Negative Urine Ketones 1+ H Negative Urine Blood Trace H Negative /uL Urine Nitrite Negative Negative Urine Bilirubin Negative Negative Urine Urobilinogen Normal Negative mg/dL Urine Leukocyte Esterase 2+ Negative /uL Urine RBC 1 0 - 4 /hpf Urine WBC 35 0 - 5 /hpf Urine WBC Clumps Present None Seen /hpf Urine Squamous Epithelial Cells Few <5 /hpf Urine Bacteria None seen None Seen /hpf Urine Yeast (Budding) Occasional None Seen /hpf Urine Glucose Normal Normal mg/dL Test 07/03/24 21:07 07/03/24 18:00 Range/Units Troponin I High Sensitivity 28 </=34 ng/L D-Dimer, Quantitative 0.95 H 0.0-0.49 mg/L FEU Lactic Acid Level 1.2 0.4-2.0 mmol/L Total Bilirubin 0.2 0.2-1.0 mg/dL Aspartate Amino Transferase (AST) 18 13-40 U/L Alanine Aminotransferase (ALT) 16 7-40 U/L Alkaline Phosphatase 64 46-116 U/L B-Type Natriuretic Peptide 311.93 0-100 pg/mL Total Protein 5.3 L 5.7-8.2 g/dL Albumin 3.4 3.2-4.8 g/dL Lipase 19 12-53 U/L Assessment Pulmonary embolism Anemia, normocytic POPLI,PALLVI Jul 06, 2024 09:43
[2024-07-06] MEDS ORDERED: PROMETHAZINE HCL 6.25 MG/5 ML ORAL SYRUP PO PRN (16:30)
--- NOTE | 2024-07-06 17:59 | DVHPN2 ---
Subjective Patient is status post right pulmonary thrombectomy, currently feeling much better. Reviewed: Care Plan Changes from previous H/P or p: No Changes Eyes: No Pain, No Vision change, No Conjunctivae inflammation, No Eyelid inflammation, No Other, No Redness ENT: No Ear pain, No Ear discharge, No Nose pain, No Nose discharge, No Nose congestion, No Mouth pain, No Mouth swelling, No Throat pain, No Throat swelling, No Other Cardiovascular: Chest Pain; No Palpitations, No Orthopnea, No Paroxysmal Noc. Dyspnea, No Edema, No Lt Headedness, No Other Respiratory: No Cough, No Dry; Shortness of breath; No SOB with excertion, No Wheezing, No Hemoptysis, No Pleuritic Pain, No Sputum, No Other Gastrointestinal: No Nausea, No Vomiting, No Abdominal Pain, No Diarrhea, No Constipation, No Melena, No Hematochezia, No Other Genitourinary: No Dysuria, No Frequency, No Incontinence, No Hematuria, No Retention, No Other Musculoskeletal: No other, No neck pain, No shoulder pain, No arm pain, No back pain, No hand pain, No leg pain, No foot pain Skin: No Rash, No Lesions, No Jaundice, No Bruising, No Other Objective Vitals Vital Signs Date Time Temp Pulse Resp B/P (MAP) Pulse Ox O2 Delivery O2 Flow Rate FiO2 07/06/24 17:00 98.4 71 16 103/42 (62) 95 98.4 07/06/24 08:02 Nasal Cannula* 2 28 Intake/Output Intake and Output 07/06/24 07:00 Intake Total 1620 ml Balance 1620 ml Intake Oral 1520 ml IV Total 100 ml # Voids 5 Exam HEENT pupils are reactive Neck is supple CV is S1-S2 regular rate and rhythm Respiratory bilateral clear GI positive bowel sound 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 Medications Current Medications Medications Dose Ordered Sig/Nalini Route Start Time Stop Time Status Last Admin Dose Admin Acetaminophen 650 mg Q6HP PRN PO 07/04/24 05:45 Ondansetron HCl 4 mg Q4HP PRN IV 07/04/24 05:45 Hold 07/05/24 17:48 4 MG Morphine Sulfate 2 mg Q4HPRN PRN IV 07/04/24 05:45 Nitroglycerin 0.4 mg Q5MINP PRN SL 07/04/24 05:45 Morphine Sulfate 2 mg Q30M PRN IV 07/04/24 05:45 Ceftriaxone Sodium 50 ml @ 100 mls/hr Q24H IV 07/04/24 22:00 07/05/24 21:11 100 MLS/HR Apixaban 5 mg BID PO 07/04/24 22:00 07/06/24 09:04 5 MG Furosemide 20 mg DAILY PO 07/05/24 10:00 Gabapentin 300 mg TID PO 07/04/24 22:00 07/06/24 13:45 300 MG Latanoprost 1 drop QPM EACHEYE 07/04/24 18:00 07/05/24 18:33 1 DROP Oxycodone/ Acetaminophen 1 tab Q6HPRN PRN PO 07/04/24 16:15 07/05/24 13:53 1 TAB Pantoprazole Sodium 40 mg DAILY PO 07/05/24 10:00 07/06/24 09:04 40 MG Sertraline HCl 100 mg DAILY PO 07/05/24 10:00 07/06/24 09:04 100 MG Trazodone HCl 50 mg HS PO 07/04/24 22:00 07/05/24 21:11 50 MG Levothyroxine Sodium 75 mcg DAILY PO 07/05/24 10:00 07/06/24 09:05 75 MCG Promethazine HCl 12.5 mg Q4HP PRN PO 07/06/24 16:30 Laboratory Results Laboratory Tests 07/06/24 06:32 Chemistry Test 07/06/24 06:32 Calcium Level 9.1 mg/dL (8.7-10.4) Urinalysis Test 07/04/24 00:29 Urine Color Yellow (Yellow) Urine Clarity Clear (Clear) Urine pH 6.0 (5.0-9.0) Urine Specific [place] 1.014 (1.001-1.035) Urine Protein 1+ (Negative) H Urine Ketones 1+ (Negative) H Urine Blood Trace /uL (Negative) H Urine Nitrite Negative (Negative) Urine Bilirubin Negative (Negative) Urine Urobilinogen Normal mg/dL (Negative) Urine Leukocyte Esterase 2+ /uL (Negative) Urine RBC 1 /hpf (0 - 4) Urine WBC 35 /hpf (0 - 5) Urine WBC Clumps Present /hpf (None Seen) Urine Squamous Epithelial Cells Few /hpf (<5) Urine Bacteria None seen /hpf (None Seen) Urine Yeast (Budding) Occasional /hpf (None Urine Glucose Normal mg/dL (Normal) Microbiology Microbiology Date/Time Source Procedure Growth Status 07/05/24 10:42 Nose MRSA Screen - Final Complete Assessment/Plan Assessment/Plan 79-year-old female with a known history of lumbar radiculopathy status post L3-4-5 lumbar spine surgery, hospital course was eventful for right lower extremity DVT started on Eliquis patient presented to the hospital with chest pain fainting and found to have 1. Acute pulmonary embolism right lower lobe segmental status post pulmonary thrombectomy 2. Urinary tract infection 3. Right lower extremity DVT 4. Lumbar radiculopathy status post L3-4-5 spine surgery 5. Diarrhea rule out C diff -continue Eliquis, physical therapy evaluation and treatment Discharge plan in next 24-48 hours Plan discussed with: Patient My Orders Orders - MARTIN VALDIVIA MD Procedure Category Date Status Time Pt Request For Service PT 07/06/24 Logged 07:53 Clostridium Difficile CARLIE 07/06/24 In Process Toxin 17:24 * Orthopedic Consult CONS 07/06/24 Transmitted 16:16 Promethazine Plain PHA 07/06/24 In Process Syrup (Phenergan Plai 16:30 Date of Service: Jul 06, 2024 Billing Provider: MARTIN VALDIVIA MD Common Visit Codes: NOT BILLABLE MARTIN VALDIVIA MD Jul 06, 2024 17:59
--- NOTE | 2024-07-06 20:44 | DVHPN2 ---
Progress Note - Dictate Date Seen: Jul 06, 2024 Medical Necessity Reason Pt with a Central, PICC or Fol: No Subjective Patient seen and examined at bedside. Remains on supplemental oxygen Overnight events reviewed. vital signs Vital Sign Date Time Temp Pulse Resp B/P (MAP) Pulse Ox O2 Delivery O2 Flow Rate FiO2 07/06/24 20:00 Nasal Cannula* 2 28 07/06/24 17:00 98.4 71 16 103/42 (62) 95 98.4 Total Intake and Output 07/05/24 07/05/24 07/06/24 15:00 23:00 07:00 Intake Total 820 ml 800 ml Balance 820 ml 800 ml medications Current Medications Medications Dose Ordered Sig/Nalini Route Start Time Stop Time Status Last Admin Dose Admin Acetaminophen 650 mg Q6HP PRN PO 07/04/24 05:45 Ondansetron HCl 4 mg Q4HP PRN IV 07/04/24 05:45 Hold 07/05/24 17:48 4 MG Morphine Sulfate 2 mg Q4HPRN PRN IV 07/04/24 05:45 Nitroglycerin 0.4 mg Q5MINP PRN SL 07/04/24 05:45 Morphine Sulfate 2 mg Q30M PRN IV 07/04/24 05:45 Ceftriaxone Sodium 50 ml @ 100 mls/hr Q24H IV 07/04/24 22:00 07/05/24 21:11 100 MLS/HR Apixaban 5 mg BID PO 07/04/24 22:00 07/06/24 09:04 5 MG Furosemide 20 mg DAILY PO 07/05/24 10:00 Gabapentin 300 mg TID PO 07/04/24 22:00 07/06/24 13:45 300 MG Latanoprost 1 drop QPM EACHEYE 07/04/24 18:00 07/06/24 18:00 1 DROP Oxycodone/ Acetaminophen 1 tab Q6HPRN PRN PO 07/04/24 16:15 07/05/24 13:53 1 TAB Pantoprazole Sodium 40 mg DAILY PO 07/05/24 10:00 07/06/24 09:04 40 MG Sertraline HCl 100 mg DAILY PO 07/05/24 10:00 07/06/24 09:04 100 MG Trazodone HCl 50 mg HS PO 07/04/24 22:00 07/05/24 21:11 50 MG Levothyroxine Sodium 75 mcg DAILY PO 07/05/24 10:00 07/06/24 09:05 75 MCG Promethazine HCl 12.5 mg Q4HP PRN PO 07/06/24 16:30 objective Gen.: Patient lying in bed in no apparent distress. On supplemental oxygen. Head: Normocephalic, atraumatic. Eyes: EOMI/PERRLA. Ears: Normal hearing. Normal anatomy. Neck/trachea: Trachea midline, supple. Nose: Normal external anatomy. Mouth: Moist mucous membranes. Chest: Decreased air entry bilaterally. No wheezing or rhonchi. Cardiovascular: Positive S1, positive S2. Regular rate and rhythm. Abdomen: Positive bowel sounds in all 4 quadrants. Soft, non-tender, non- distended. : Deferred. Rectal: Deferred. Skin: Warm, dry. Intact. Extremities: 2+ radial pulses bilaterally. No lower extremity edema. Neuro: Awake, alert, oriented x3. No gross motor or sensory deficits. Cranial nerves II through XII intact. Gait not assessed. laboratory and microbiology Laboratory Tests 07/06/24 06:32 Test 07/06/24 06:32 Range/Units Serum Glucose 124 H 74-106 mg/dL Assessment/Plan Impression: Pulmonary embolism Dyspnea due to pulmonary embolism Acute exacerbation of CHF Elevated D-dimer due to pulmonary embolism Anemia Urinary tract infection Obesity with a BMI of 30.3 Hiatal hernia Events: Remains on supplemental oxygen, 2 LPM NC Taper O2 as tolerated Patient improving s/p thrombectomy for PE. Continue antibiotics Incentive spirometry Antitussive for cough. Eliquis BID Protonix for GI prophylaxis Diurese w/ Lasix 20 mg QD - pt refused medication Monitor renal function. Monitor electrolytes. Supplement as necessary. Labs and imaging reviewed. Rest of plan as noted below. Plan: CT of the chest demonstrates right lower lobe segmental pulmonary embolism. Elevated RV to LV ratio concerning for right heart strain. Scattered opacities in the right middle and left upper and lower lobes. No pleural effusion or pneumothorax. Supplemental oxygen 2 LPM via NC Keep O2 saturation above 92%. Continue antibiotics Follow up cultures. Patient having bilateral plaque goes post thrombectomy. Stat Lasix 40 mg IV push x1. Continue diuresis to maintain euvolemia. Monitor ins and outs. Monitor renal function. Monitor electrolytes. Supplement as necessary. Monitor hemoglobin closely due to anemia. Prognosis: Poor given multiple comorbidities. Rest of plan per hospitalist and other consultants. Thank you FRAN Muñoz for allowing me to participate in this patient's care. Further recommendations will depend on patient's clinical course. Please do not hesitate to contact me if you have any questions or concerns. This medical document was created using an electronic medical record system with [employer] dictation system. Although this document has been carefully reviewed, there may still be some phonetic and typographical errors. These areas are purely typographical due to imperfections of the software programs, and do not reflect any compromise in the patient's medical care. Plan discussed with: Patient, Other (RN) MICHAEL QUINTERO MD Jul 06, 2024 20:44
[2024-07-07] VITALS (8 sets, daily range): BP systolic 121–149; BP diastolic 43–71; PULSE 62–78; RESP 16–18; TEMP 97.8–98.6; O2SAT 93–98
[2024-07-07 07:26] LABS: Basophils # (auto) 0 10 ^3/uL (0-0.2); Eosinophils # (auto) 0.1 10 ^3/uL (0-0.8); Eosinophils % (auto) 1.3 % (0.0-7.0); Hemoglobin 7.8 g/dL (12.2-16.2); Mean Corpuscular Hemoglobin 27.6 pg (28.0-32.0); Monocytes # (auto) 0.4 10 ^3/uL (0-1.3); Nucleated Red Blood Cells % 0.1 %; White Blood Cell 3.9 10^3/uL (4.4-10.8)
[2024-07-07 07:30] LABS: Basophils % (auto) 0.4 % (0.0-2.0); Hematocrit 24.1 % (36.0-46.0); Lymphocytes # (auto) 0.7 10 ^3/uL (0.4-5.4); Mean Corpuscular Hgb Conc. 32.1 g/dL (32.0-36.0); Mean Corpuscular Volume 85.9 fL (80.0-100.0); Monocytes % (auto) 10.2 % (0.0-12.0); Neutrophils # (auto) 2.7 10 ^3/uL (1.6-8.6); Neutrophils % (auto) 70.1 % (37.0-80.0); Platelet Count (auto) 187 10^3/uL (140-450); Red Blood Cells 2.81 10^6/uL (4.0-5.20); Red Cell Distribution Width 15.2 % (11.8-14.3)
[2024-07-07 07:31] LABS: Calcium 8.9 mg/dL (8.7-10.4); Chloride 104 mmol/L (98-107); Sodium 143 mmol/L (136-145)
[2024-07-07 07:32] LABS: Anion Gap 5 (5-15)
[2024-07-07 07:37] LABS: BUN/Creatinine Ratio 14.3 (10.0-20.0); Blood Urea Nitrogen 11 mg/dL (9-23)
[2024-07-07 07:46] LABS: Carbon Dioxide 34 mmol/L (20-31); Glucose 107 mg/dL (74-106); Potassium 2.8 mmol/L (3.5-5.1)
[2024-07-07] MEDS ORDERED: PROMETHAZINE HCL 6.25 MG/5 ML ORAL SYRUP PO PRN (10:30)
[2024-07-07] MEDS: POTASSIUM CHL 20MEQ/100ML 0 ML IV ONE (12:20)
[2024-07-07] MEDS: POTASSIUM CHL 20 Meq TABLET PO ONE (12:25)
[2024-07-07] MEDS: POTASSIUM CHLORIDE 40 MEQ, LIDOCAINE 1% (LOCAL ANESTH.) 4 ML in SODIUM CHL 0.9% 250 ML IV ONE (12:37)
--- NOTE | 2024-07-07 16:21 | DVHPN2 ---
Subjective Patient is status post right pulmonary thrombectomy, PATIENT COMPLAINING OF DIARRHEA. STOOL FOR C DIFF IS PENDING Reviewed: Care Plan Changes from previous H/P or p: No Changes Eyes: No Pain, No Vision change, No Conjunctivae inflammation, No Eyelid inflammation, No Other, No Redness ENT: No Ear pain, No Ear discharge, No Nose pain, No Nose discharge, No Nose congestion, No Mouth pain, No Mouth swelling, No Throat pain, No Throat swelling, No Other Cardiovascular: Chest Pain; No Palpitations, No Orthopnea, No Paroxysmal Noc. Dyspnea, No Edema, No Lt Headedness, No Other Respiratory: No Cough, No Dry; Shortness of breath; No SOB with excertion, No Wheezing, No Hemoptysis, No Pleuritic Pain, No Sputum, No Other Gastrointestinal: No Nausea, No Vomiting, No Abdominal Pain, No Diarrhea, No Constipation, No Melena, No Hematochezia, No Other Genitourinary: No Dysuria, No Frequency, No Incontinence, No Hematuria, No Retention, No Other Musculoskeletal: No other, No neck pain, No shoulder pain, No arm pain, No back pain, No hand pain, No leg pain, No foot pain Skin: No Rash, No Lesions, No Jaundice, No Bruising, No Other Objective Vitals Vital Signs Date Time Temp Pulse Resp B/P (MAP) Pulse Ox O2 Delivery O2 Flow Rate FiO2 07/07/24 13:00 97.8 69 18 132/57 (82) 97 97.8 07/07/24 08:00 Nasal Cannula* 2 28 Intake/Output Intake and Output 07/07/24 07:00 Intake Total 1750 ml Balance 1750 ml Intake Oral 1650 ml IV Total 100 ml # Voids 4 # Bowel Movements 2 Exam HEENT pupils are reactive Neck is supple CV is S1-S2 regular rate and rhythm Respiratory bilateral clear GI positive bowel sound 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 Medications Current Medications Medications Dose Ordered Sig/Nalini Route Start Time Stop Time Status Last Admin Dose Admin Acetaminophen 650 mg Q6HP PRN PO 07/04/24 05:45 Ondansetron HCl 4 mg Q4HP PRN IV 07/04/24 05:45 07/07/24 10:30 4 MG Morphine Sulfate 2 mg Q4HPRN PRN IV 07/04/24 05:45 Nitroglycerin 0.4 mg Q5MINP PRN SL 07/04/24 05:45 Morphine Sulfate 2 mg Q30M PRN IV 07/04/24 05:45 Ceftriaxone Sodium 50 ml @ 100 mls/hr Q24H IV 07/04/24 22:00 07/06/24 21:51 100 MLS/HR Apixaban 5 mg BID PO 07/04/24 22:00 07/07/24 09:57 5 MG Furosemide 20 mg DAILY PO 07/05/24 10:00 07/07/24 09:57 20 MG Gabapentin 300 mg TID PO 07/04/24 22:00 07/07/24 14:24 300 MG Latanoprost 1 drop QPM EACHEYE 07/04/24 18:00 07/06/24 18:00 1 DROP Oxycodone/ Acetaminophen 1 tab Q6HPRN PRN PO 07/04/24 16:15 07/05/24 13:53 1 TAB Pantoprazole Sodium 40 mg DAILY PO 07/05/24 10:00 07/07/24 09:56 40 MG Sertraline HCl 100 mg DAILY PO 07/05/24 10:00 07/07/24 09:56 100 MG Trazodone HCl 50 mg HS PO 07/04/24 22:00 07/06/24 21:51 50 MG Levothyroxine Sodium 75 mcg DAILY PO 07/05/24 10:00 07/07/24 09:56 75 MCG Promethazine HCl 12.5 mg Q4HP PRN PO 07/07/24 10:30 Laboratory Results Laboratory Tests 07/07/24 05:49 Chemistry Test 07/07/24 05:49 Calcium Level 8.9 mg/dL (8.7-10.4) Urinalysis Test 07/04/24 00:29 Urine Color Yellow (Yellow) Urine Clarity Clear (Clear) Urine pH 6.0 (5.0-9.0) Urine Specific [place] 1.014 (1.001-1.035) Urine Protein 1+ (Negative) H Urine Ketones 1+ (Negative) H Urine Blood Trace /uL (Negative) H Urine Nitrite Negative (Negative) Urine Bilirubin Negative (Negative) Urine Urobilinogen Normal mg/dL (Negative) Urine Leukocyte Esterase 2+ /uL (Negative) Urine RBC 1 /hpf (0 - 4) Urine WBC 35 /hpf (0 - 5) Urine WBC Clumps Present /hpf (None Seen) Urine Squamous Epithelial Cells Few /hpf (<5) Urine Bacteria None seen /hpf (None Seen) Urine Yeast (Budding) Occasional /hpf (None Urine Glucose Normal mg/dL (Normal) Microbiology Microbiology Date/Time Source Procedure Growth Status 07/05/24 10:42 Nose MRSA Screen - Final Complete Assessment/Plan Assessment/Plan 79-year-old female with a known history of lumbar radiculopathy status post L3-4-5 lumbar spine surgery, hospital course was eventful for right lower extremity DVT started on Eliquis patient presented to the hospital with chest pain fainting and found to have 1. Acute pulmonary embolism right lower lobe segmental status post pulmonary thrombectomy 2. Urinary tract infection 3. Right lower extremity DVT 4. Lumbar radiculopathy status post L3-4-5 spine surgery 5. Diarrhea rule out C diff -continue Eliquis, physical therapy evaluation and treatment Discharge plan in next 24-48 hours Plan discussed with: Patient My Orders Orders - MARTIN VALDIVIA MD Procedure Category Date Status Time Clostridium Difficile CARLIE 07/06/24 In Process Toxin 17:24 * Orthopedic Consult CONS 07/06/24 Transmitted 16:16 Promethazine Plain PHA 07/07/24 In Process Syrup (Phenergan Plai 10:30 Date of Service: Jul 07, 2024 Billing Provider: MARTIN VALDIVIA MD Common Visit Codes: NOT BILLABLE MARTIN VALDIIVA MD Jul 07, 2024 16:21
--- NOTE | 2024-07-07 18:13 | DVHSR ---
APPROVED REPORT EXAM: LIMITED Two-dimensional and M-mode echocardiogram with Doppler and color Doppler. Blood Pressure: 147/75 mmHg INDICATION PE DVT RISK FACTORS Obesity: Height: 5'5, Weight: 230 DIMENSIONS LVDd3.8 (3.8-5.7cm)LA (2D)4.3 (1.9-4.0cm)Aortic Root2.8 (2.0-3.7cm) LVDs2.8 (2.5-4.0cm)LA (MM) (1.9-4.0cm)Aortic Cusp Exc1.2 (1.5-2.0cm) EF (%) 55.0 (55-70%)Rt. Atrium3.4 (1.9-4.0cm)Asc. Aorta cm IVSd0.8 (0.7-1.1cm)RV (D) (1.8-2.4cm) PWd1.2 (0.7-1.1cm) Mitral Valve MitralMitral Stenosis E wave0.97m/sMV Mean GR.mmHg A wave1.16m/sMV Peak GR.mmHg E/A ratio0.82D MVAcm2 DECEL [id number] 1/2 Timems Aortic Valve Aortic ValveAortic Stenosis V11.32m/Jojo Mean GR.9mmHg V22.25m/Jojo Peak GR.20mmHg LVOT Diameter1.7 (1.8-2.4cm)Doppler AVA1.33cm2 Pulmonic Valve V21.36m/s Tricuspid Valve TR Velocity2.98m/s [id number] Other Information Technically limited study due to PT breathing heavy Conclusion Technically good study. Sinus rhythm. Left atrial enlargement with mild aortic root enlargement. Mild RV hypertrophy. Valves appear to be structurally normal. EF of 60% with normal RV function. Moderate tricuspid regurgitation with a right ventricular systolic pressure of 50 mmHg consistent wit h moderate pulmonary hypertension. Small pericardial effusion not hemodynamically significant. No masses or vegetations discernible.
--- NOTE | 2024-07-07 20:06 | DVHPN2 ---
Progress Note - Dictate Date Seen: Jul 07, 2024 Medical Necessity Reason Pt with a Central, PICC or Fol: No Subjective Patient seen and examined at bedside. Remains on supplemental oxygen Overnight events reviewed. vital signs Vital Sign Date Time Temp Pulse Resp B/P (MAP) Pulse Ox O2 Delivery O2 Flow Rate FiO2 07/07/24 16:33 98.0 67 17 129/53 (78) 98 98.0 07/07/24 08:00 Nasal Cannula* 2 28 Total Intake and Output 07/06/24 07/06/24 07/07/24 15:00 23:00 07:00 Intake Total 1300 ml 450 ml Balance 1300 ml 450 ml medications Current Medications Medications Dose Ordered Sig/Nalini Route Start Time Stop Time Status Last Admin Dose Admin Acetaminophen 650 mg Q6HP PRN PO 07/04/24 05:45 Ondansetron HCl 4 mg Q4HP PRN IV 07/04/24 05:45 07/07/24 10:30 4 MG Morphine Sulfate 2 mg Q4HPRN PRN IV 07/04/24 05:45 Nitroglycerin 0.4 mg Q5MINP PRN SL 07/04/24 05:45 Morphine Sulfate 2 mg Q30M PRN IV 07/04/24 05:45 Ceftriaxone Sodium 50 ml @ 100 mls/hr Q24H IV 07/04/24 22:00 07/06/24 21:51 100 MLS/HR Apixaban 5 mg BID PO 07/04/24 22:00 07/07/24 09:57 5 MG Furosemide 20 mg DAILY PO 07/05/24 10:00 07/07/24 09:57 20 MG Gabapentin 300 mg TID PO 07/04/24 22:00 07/07/24 14:24 300 MG Latanoprost 1 drop QPM EACHEYE 07/04/24 18:00 07/07/24 19:01 1 DROP Oxycodone/ Acetaminophen 1 tab Q6HPRN PRN PO 07/04/24 16:15 07/05/24 13:53 1 TAB Pantoprazole Sodium 40 mg DAILY PO 07/05/24 10:00 07/07/24 09:56 40 MG Sertraline HCl 100 mg DAILY PO 07/05/24 10:00 07/07/24 09:56 100 MG Trazodone HCl 50 mg HS PO 07/04/24 22:00 128/24 21:51 50 MG Levothyroxine Sodium 75 mcg DAILY PO 07/05/24 10:00 07/07/24 09:56 75 MCG Promethazine HCl 12.5 mg Q4HP PRN PO 07/07/24 10:30 objective Gen.: Patient lying in bed in no apparent distress. On supplemental oxygen. Head: Normocephalic, atraumatic. Eyes: EOMI/PERRLA. Ears: Normal hearing. Normal anatomy. Neck/trachea: Trachea midline, supple. Nose: Normal external anatomy. Mouth: Moist mucous membranes. Chest: Decreased air entry bilaterally. No wheezing or rhonchi. Cardiovascular: Positive S1, positive S2. Regular rate and rhythm. Abdomen: Positive bowel sounds in all 4 quadrants. Soft, non-tender, non- distended. : Deferred. Rectal: Deferred. Skin: Warm, dry. Intact. Extremities: 2+ radial pulses bilaterally. No lower extremity edema. Neuro: Awake, alert, oriented x3. No gross motor or sensory deficits. Cranial nerves II through XII intact. Gait not assessed. laboratory and microbiology Laboratory Tests 07/07/24 05:49 Test 07/07/24 05:49 Range/Units Serum Glucose 107 H 74-106 mg/dL Assessment/Plan Impression: Pulmonary embolism Dyspnea due to pulmonary embolism Acute exacerbation of CHF Elevated D-dimer due to pulmonary embolism Anemia Urinary tract infection Obesity with a BMI of 30.3 Hiatal hernia Events: Remains on supplemental oxygen, 2 LPM NC Taper O2 as tolerated Patient improving s/p thrombectomy for PE. Continue antibiotics Incentive spirometry Antitussive for cough. Rule out C. diff due to diarrhea. Eliquis BID Protonix for GI prophylaxis Diurese w/ Lasix 20 mg QD Monitor renal function. Monitor electrolytes. Supplement as necessary. Potassium supplementation Labs and imaging reviewed. Rest of plan as noted below. Plan: CT of the chest demonstrates right lower lobe segmental pulmonary embolism. Elevated RV to LV ratio concerning for right heart strain. Scattered opacities in the right middle and left upper and lower lobes. No pleural effusion or pneumothorax. Supplemental oxygen 2 LPM via NC Keep O2 saturation above 92%. Continue antibiotics Follow up cultures. PE, status post thrombectomy. Continue diuresis to maintain euvolemia. Monitor ins and outs. Monitor renal function. Monitor electrolytes. Supplement as necessary. Monitor hemoglobin closely due to anemia. Prognosis: Poor given multiple comorbidities. Rest of plan per hospitalist and other consultants. Thank you FRAN Muñoz for allowing me to participate in this patient's care. Further recommendations will depend on patient's clinical course. Please do not hesitate to contact me if you have any questions or concerns. This medical document was created using an electronic medical record system with [employer] dictation system. Although this document has been carefully reviewed, there may still be some phonetic and typographical errors. These areas are purely typographical due to imperfections of the software programs, and do not reflect any compromise in the patient's medical care. Plan discussed with: Patient, Other (DAVID Rossi) MICHAEL QUINTERO MD Jul 07, 2024 20:05
[2024-07-08] VITALS (10 sets, daily range): BP systolic 100–155; BP diastolic 44–82; PULSE 63–100; RESP 16–20; TEMP 97.5–98.7; O2SAT 93–99
[2024-07-08 07:49] LABS: Chloride 107 mmol/L (98-107); Sodium 144 mmol/L (136-145)
[2024-07-08 07:50] LABS: Anion Gap 4 (5-15)
[2024-07-08 07:55] LABS: Glucose 106 mg/dL (74-106)
[2024-07-08 07:56] LABS: BUN/Creatinine Ratio 17.1 (10.0-20.0); Blood Urea Nitrogen 12 mg/dL (9-23)
[2024-07-08 07:58] LABS: Carbon Dioxide 33 mmol/L (20-31); Potassium 3.3 mmol/L (3.5-5.1)
[2024-07-08 08:10] LABS: Hematocrit 23.5 % (36.0-46.0); Hemoglobin 7.4 g/dL (12.2-16.2); Mean Corpuscular Hemoglobin 27.1 pg (28.0-32.0); Mean Corpuscular Hgb Conc. 31.3 g/dL (32.0-36.0); Mean Corpuscular Volume 86.7 fL (80.0-100.0); Platelet Count (auto) 187 10^3/uL (140-450); Red Blood Cells 2.71 10^6/uL (4.0-5.20); Red Cell Distribution Width 15.3 % (11.8-14.3); White Blood Cell 3.8 10^3/uL (4.4-10.8)
[2024-07-08 08:13] LABS: Basophils % (manual) 0 (0.0-2.0); Blast Cells 0; Metamyelocytes % 0; Myelocytes % 0; Promyelocytes % 0; Reactive Lymphocytes 0
[2024-07-08 09:12] LABS: Band Neutrophils % (manual) 4; Eosinophils % (manual) 1 (0-7); Lymphocytes % (manual) 18 (10.0-50.0); Monocytes % (manual) 9 (0-12)
[2024-07-08 09:13] LABS: Platelet Estimate Adequate
[2024-07-08] MEDS ORDERED: ALBUTEROL SULF 2.5 MG/0.5ML(0.5%) NEB SOLN NEB PRN (11:15)
[2024-07-08] MEDS: LOPERAMIDE HCL 2 MG CAP/TAB PO PRN (15:23)
--- NOTE | 2024-07-08 17:38 | DVHPN2 ---
Subjective Patient is status post right pulmonary thrombectomy, PATIENT COMPLAINING OF DIARRHEA. STOOL FOR C DIFF IS negative but patient is still have explosive diarrhea. Reviewed: Care Plan Changes from previous H/P or p: No Changes Eyes: No Pain, No Vision change, No Conjunctivae inflammation, No Eyelid inflammation, No Other, No Redness ENT: No Ear pain, No Ear discharge, No Nose pain, No Nose discharge, No Nose congestion, No Mouth pain, No Mouth swelling, No Throat pain, No Throat swelling, No Other Cardiovascular: Chest Pain; No Palpitations, No Orthopnea, No Paroxysmal Noc. Dyspnea, No Edema, No Lt Headedness, No Other Respiratory: No Cough, No Dry; Shortness of breath; No SOB with excertion, No Wheezing, No Hemoptysis, No Pleuritic Pain, No Sputum, No Other Gastrointestinal: No Nausea, No Vomiting, No Abdominal Pain, No Diarrhea, No Constipation, No Melena, No Hematochezia, No Other Genitourinary: No Dysuria, No Frequency, No Incontinence, No Hematuria, No Retention, No Other Musculoskeletal: No other, No neck pain, No shoulder pain, No arm pain, No back pain, No hand pain, No leg pain, No foot pain Skin: No Rash, No Lesions, No Jaundice, No Bruising, No Other Objective Vitals Vital Signs Date Time Temp Pulse Resp B/P (MAP) Pulse Ox O2 Delivery O2 Flow Rate FiO2 07/08/24 16:35 97.8 79 20 132/63 (86) 95 97.8 07/08/24 13:35 Nasal Cannula* 2 28 Intake/Output Intake and Output 07/08/24 07:00 Intake Total 1539 ml Balance 1539 ml Intake Oral 1489 ml IV Total 50 ml # Voids 11 # Bowel Movements 11 Exam HEENT pupils are reactive Neck is supple CV is S1-S2 regular rate and rhythm Respiratory bilateral clear GI positive bowel sound 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 Medications Current Medications Medications Dose Ordered Sig/Nalini Route Start Time Stop Time Status Last Admin Dose Admin Acetaminophen 650 mg Q6HP PRN PO 07/04/24 05:45 Ondansetron HCl 4 mg Q4HP PRN IV 07/04/24 05:45 07/07/24 10:30 4 MG Morphine Sulfate 2 mg Q4HPRN PRN IV 07/04/24 05:45 Nitroglycerin 0.4 mg Q5MINP PRN SL 07/04/24 05:45 Morphine Sulfate 2 mg Q30M PRN IV 07/04/24 05:45 Ceftriaxone Sodium 50 ml @ 100 mls/hr Q24H IV 07/04/24 22:00 07/07/24 21:32 100 MLS/HR Apixaban 5 mg BID PO 07/04/24 22:00 07/08/24 09:48 5 MG Furosemide 20 mg DAILY PO 07/05/24 10:00 07/08/24 09:48 20 MG Gabapentin 300 mg TID PO 07/04/24 22:00 07/08/24 15:16 300 MG Latanoprost 1 drop QPM EACHEYE 07/04/24 18:00 07/07/24 19:01 1 DROP Oxycodone/ Acetaminophen 1 tab Q6HPRN PRN PO 07/04/24 16:15 07/05/24 13:53 1 TAB Pantoprazole Sodium 40 mg DAILY PO 07/05/24 10:00 07/08/24 09:47 40 MG Sertraline HCl 100 mg DAILY PO 07/05/24 10:00 07/08/24 09:47 100 MG Trazodone HCl 50 mg HS PO 07/04/24 22:00 07/07/24 21:32 50 MG Levothyroxine Sodium 75 mcg DAILY PO 07/05/24 10:00 07/08/24 09:48 75 MCG Promethazine HCl 12.5 mg Q4HP PRN PO 07/07/24 10:30 Loperamide HCl 2 mg PRN PRN PO 07/08/24 11:15 07/08/24 15:23 2 MG Albuterol 2.5 mg Q6HPRN PRN NEB 07/08/24 11:15 Laboratory Results Laboratory Tests 07/08/24 06:24 Chemistry Test 07/08/24 06:24 Calcium Level 9.0 mg/dL (8.7-10.4) Urinalysis Test 07/04/24 00:29 Urine Color Yellow (Yellow) Urine Clarity Clear (Clear) Urine pH 6.0 (5.0-9.0) Urine Specific [place] 1.014 (1.001-1.035) Urine Protein 1+ (Negative) H Urine Ketones 1+ (Negative) H Urine Blood Trace /uL (Negative) H Urine Nitrite Negative (Negative) Urine Bilirubin Negative (Negative) Urine Urobilinogen Normal mg/dL (Negative) Urine Leukocyte Esterase 2+ /uL (Negative) Urine RBC 1 /hpf (0 - 4) Urine WBC 35 /hpf (0 - 5) Urine WBC Clumps Present /hpf (None Seen) Urine Squamous Epithelial Cells Few /hpf (<5) Urine Bacteria None seen /hpf (None Seen) Urine Yeast (Budding) Occasional /hpf (None Urine Glucose Normal mg/dL (Normal) Microbiology Microbiology Date/Time Source Procedure Growth Status 07/06/24 17:00 Stool Clostridium difficile Toxin Assay - Final Complete 07/05/24 10:42 Nose MRSA Screen - Final Complete Assessment/Plan Assessment/Plan 79-year-old female with a known history of lumbar radiculopathy status post L3-4-5 lumbar spine surgery, hospital course was eventful for right lower extremity DVT started on Eliquis patient presented to the hospital with chest pain fainting and found to have 1. Acute pulmonary embolism right lower lobe segmental status post pulmonary thrombectomy 2. Urinary tract infection 3. Right lower extremity DVT 4. Lumbar radiculopathy status post L3-4-5 spine surgery 5. Diarrhea C diff has been ruled out -add Imodium -continue Eliquis, physical therapy evaluation and treatment Discharge plan in next 24-48 hours Plan discussed with: Patient Date of Service: Jul 08, 2024 Billing Provider: MARTIN VALDIVIA MD Common Visit Codes: NOT BILLABLE MARTIN VALDIVIA MD Jul 08, 2024 17:38
[2024-07-08] MEDS: SODIUM CHLORIDE 0.9% 250 ML IV ONE (21:41)
--- NOTE | 2024-07-08 22:43 | DVHPN2 ---
Progress Note - Dictate Date Seen: Jul 08, 2024 Medical Necessity Reason Pt with a Central, PICC or Fol: No Subjective Patient seen and examined at bedside. Remains on supplemental oxygen Overnight events reviewed. vital signs Vital Sign Date Time Temp Pulse Resp B/P (MAP) Pulse Ox O2 Delivery O2 Flow Rate FiO2 07/08/24 22:00 97.5 75 17 117/44 (68) 97 97.5 07/08/24 13:35 Nasal Cannula* 2 28 Total Intake and Output 07/07/24 07/07/24 07/08/24 15:00 23:00 07:00 Intake Total 839 ml 700 ml Balance 839 ml 700 ml medications Current Medications Medications Dose Ordered Sig/Nalini Route Start Time Stop Time Status Last Admin Dose Admin Acetaminophen 650 mg Q6HP PRN PO 07/04/24 05:45 Ondansetron HCl 4 mg Q4HP PRN IV 07/04/24 05:45 07/07/24 10:30 4 MG Morphine Sulfate 2 mg Q4HPRN PRN IV 07/04/24 05:45 Nitroglycerin 0.4 mg Q5MINP PRN SL 07/04/24 05:45 Morphine Sulfate 2 mg Q30M PRN IV 07/04/24 05:45 Ceftriaxone Sodium 50 ml @ 100 mls/hr Q24H IV 07/04/24 22:00 07/08/24 21:56 100 MLS/HR Apixaban 5 mg BID PO 07/04/24 22:00 07/08/24 21:54 5 MG Furosemide 20 mg DAILY PO 07/05/24 10:00 07/08/24 09:48 20 MG Gabapentin 300 mg TID PO 07/04/24 22:00 07/08/24 21:54 300 MG Latanoprost 1 drop QPM EACHEYE 07/04/24 18:00 07/08/24 19:08 1 DROP Oxycodone/ Acetaminophen 1 tab Q6HPRN PRN PO 07/04/24 16:15 07/05/24 13:53 1 TAB Pantoprazole Sodium 40 mg DAILY PO 07/05/24 10:00 07/08/24 09:47 40 MG Sertraline HCl 100 mg DAILY PO 07/05/24 10:00 07/08/24 09:47 100 MG Trazodone HCl 50 mg HS PO 07/04/24 22:00 07/08/24 21:54 50 MG Levothyroxine Sodium 75 mcg DAILY PO 07/05/24 10:00 07/08/24 09:48 75 MCG Promethazine HCl 12.5 mg Q4HP PRN PO 07/07/24 10:30 Loperamide HCl 2 mg PRN PRN PO 07/08/24 11:15 07/08/24 15:23 2 MG Albuterol 2.5 mg Q6HPRN PRN NEB 07/08/24 11:15 objective Gen.: Patient lying in bed in no apparent distress. On supplemental oxygen. Head: Normocephalic, atraumatic. Eyes: EOMI/PERRLA. Ears: Normal hearing. Normal anatomy. Neck/trachea: Trachea midline, supple. Nose: Normal external anatomy. Mouth: Moist mucous membranes. Chest: Decreased air entry bilaterally. No wheezing or rhonchi. Cardiovascular: Positive S1, positive S2. Regular rate and rhythm. Abdomen: Positive bowel sounds in all 4 quadrants. Soft, non-tender, non- distended. : Deferred. Rectal: Deferred. Skin: Warm, dry. Intact. Extremities: 2+ radial pulses bilaterally. No lower extremity edema. Neuro: Awake, alert, oriented x3. No gross motor or sensory deficits. Cranial nerves II through XII intact. Gait not assessed. laboratory and microbiology Laboratory Tests 07/08/24 06:24 Test 07/08/24 06:24 Range/Units Serum Glucose 106 74-106 mg/dL Assessment/Plan Impression: Pulmonary embolism Dyspnea due to pulmonary embolism Acute exacerbation of CHF Elevated D-dimer due to pulmonary embolism Anemia Urinary tract infection Obesity with a BMI of 30.3 Hiatal hernia Events: Remains on supplemental oxygen, 2 LPM [place] Taper O2 as tolerated PT evaluation Recommend SNF placement. Patient improving s/p thrombectomy for PE. Continue anticoagulation DAWSON slowly improving. Bronchodilators PRN shortness of breath. Continue antibiotics Incentive spirometry Eliquis BID Protonix for GI prophylaxis Diurese w/ Lasix 20 mg QD Monitor renal function. Monitor electrolytes. Supplement as necessary. C. diff negative. Start Imodium for diarrhea. Disposition per hospitalist. Labs and imaging reviewed. Rest of plan as noted below. Plan: CT of the chest demonstrates right lower lobe segmental pulmonary embolism. Elevated RV to LV ratio concerning for right heart strain. Scattered opacities in the right middle and left upper and lower lobes. No pleural effusion or pneumothorax. Supplemental oxygen Keep O2 saturation above 92%. Continue antibiotics Follow up cultures. PE, status post thrombectomy. Continue diuresis to maintain euvolemia. Monitor ins and outs. Monitor renal function. Monitor electrolytes. Supplement as necessary. Monitor hemoglobin closely due to anemia. Prognosis: Poor given multiple comorbidities. Rest of plan per hospitalist and other consultants. Thank you FRAN Muñoz for allowing me to participate in this patient's care. Further recommendations will depend on patient's clinical course. Please do not hesitate to contact me if you have any questions or concerns. This medical document was created using an electronic medical record system with [employer] dictation system. Although this document has been carefully reviewed, there may still be some phonetic and typographical errors. These areas are purely typographical due to imperfections of the software programs, and do not reflect any compromise in the patient's medical care. Dietary Evaluation Review Comments: Continue current plan of care Expected Outcomes/Goals: F/U in 3-5 days Plan discussed with: Patient, Other (DAVID Rossi) MICHAEL QUINTERO MD Jul 08, 2024 22:43
[2024-07-08 23:25] LABS: Urine Bacteria FEW /hpf (None Seen); Urine Blood Negative /uL (Negative); Urine Clarity Clear (Clear); Urine Color Light-Yellow (Yellow); Urine Protein, UAD TRACE (Negative); Urine Urobilinogen Normal (Negative); Urine WBC 11 /hpf (0 - 5)
[2024-07-09] VITALS (11 sets, daily range): BP systolic 114–137; BP diastolic 40–77; PULSE 64–75; RESP 16–21; TEMP 97.3–98.8; O2SAT 96–97
[2024-07-09 05:56] LABS: Hemoglobin 7.5 g/dL (12.2-16.2)
[2024-07-09 05:58] LABS: Hematocrit 23.3 % (36.0-46.0); Mean Corpuscular Hemoglobin 27.6 pg (28.0-32.0); Mean Corpuscular Hgb Conc. 32.4 g/dL (32.0-36.0); Mean Corpuscular Volume 85.4 fL (80.0-100.0); Platelet Count (auto) 199 10^3/uL (140-450); Red Blood Cells 2.72 10^6/uL (4.0-5.20); Red Cell Distribution Width 15.3 % (11.8-14.3); White Blood Cell 3.8 10^3/uL (4.4-10.8)
[2024-07-09 06:10] LABS: Band Neutrophils % (manual) 0; Basophils % (manual) 0 (0.0-2.0); Blast Cells 0; Metamyelocytes % 0; Myelocytes % 0; Promyelocytes % 0; Reactive Lymphocytes 0
[2024-07-09 06:11] LABS: Anion Gap 7 (5-15); Chloride 105 mmol/L (98-107)
[2024-07-09 06:13] LABS: Calcium 9.1 mg/dL (8.7-10.4)
[2024-07-09 06:17] LABS: Glucose 95 mg/dL (74-106)
[2024-07-09 06:18] LABS: BUN/Creatinine Ratio 9.9 (10.0-20.0)
[2024-07-09 06:34] LABS: Blood Urea Nitrogen 7 mg/dL (9-23); Carbon Dioxide 34 mmol/L (20-31); Potassium 3.2 mmol/L (3.5-5.1); Sodium 146 mmol/L (136-145)
[2024-07-09 07:34] LABS: Eosinophils % (manual) 3 (0-7); Lymphocytes % (manual) 28 (10.0-50.0); Monocytes % (manual) 9 (0-12); Platelet Estimate Adequate
[2024-07-09] MEDS: POTASSIUM EFFERVESENT TAB 25 MEQ PO ONE (16:17)
--- NOTE | 2024-07-09 16:47 | DVHPN2 ---
Subjective Patient has stated diarrhea has been resolved but she is very physically deconditioned. Reviewed: Care Plan Changes from previous H/P or p: No Changes Eyes: No Pain, No Vision change, No Conjunctivae inflammation, No Eyelid inflammation, No Other, No Redness ENT: No Ear pain, No Ear discharge, No Nose pain, No Nose discharge, No Nose congestion, No Mouth pain, No Mouth swelling, No Throat pain, No Throat swelling, No Other Cardiovascular: Chest Pain; No Palpitations, No Orthopnea, No Paroxysmal Noc. Dyspnea, No Edema, No Lt Headedness, No Other Respiratory: No Cough, No Dry; Shortness of breath; No SOB with excertion, No Wheezing, No Hemoptysis, No Pleuritic Pain, No Sputum, No Other Gastrointestinal: No Nausea, No Vomiting, No Abdominal Pain, No Diarrhea, No Constipation, No Melena, No Hematochezia, No Other Genitourinary: No Dysuria, No Frequency, No Incontinence, No Hematuria, No Retention, No Other Musculoskeletal: No other, No neck pain, No shoulder pain, No arm pain, No back pain, No hand pain, No leg pain, No foot pain Skin: No Rash, No Lesions, No Jaundice, No Bruising, No Other Objective Vitals Vital Signs Date Time Temp Pulse Resp B/P (MAP) Pulse Ox O2 Delivery O2 Flow Rate FiO2 07/09/24 13:23 97 Nasal Cannula 2.0 07/09/24 13:23 28 07/09/24 13:00 98.3 69 21 126/48 (74) 98.3 Intake/Output Intake and Output 07/09/24 07:00 Intake Total 940 ml Output Total 1000 ml Balance -60 ml Intake Oral 640 ml IV Total 300 ml Output Urine Total 1000 ml # Voids 2 # Bowel Movements 2 Exam HEENT pupils are reactive Neck is supple CV is S1-S2 regular rate and rhythm Respiratory bilateral clear GI positive bowel sound Extremity no edema 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 Medications Current Medications Medications Dose Ordered Sig/Nalini Route Start Time Stop Time Status Last Admin Dose Admin Acetaminophen 650 mg Q6HP PRN PO 07/04/24 05:45 Ondansetron HCl 4 mg Q4HP PRN IV 07/04/24 05:45 07/07/24 10:30 4 MG Morphine Sulfate 2 mg Q4HPRN PRN IV 07/04/24 05:45 Nitroglycerin 0.4 mg Q5MINP PRN SL 07/04/24 05:45 Morphine Sulfate 2 mg Q30M PRN IV 07/04/24 05:45 Ceftriaxone Sodium 50 ml @ 100 mls/hr Q24H IV 07/04/24 22:00 07/08/24 21:56 100 MLS/HR Apixaban 5 mg BID PO 07/04/24 22:00 07/09/24 11:33 5 MG Furosemide 20 mg DAILY PO 07/05/24 10:00 07/09/24 11:33 20 MG Gabapentin 300 mg TID PO 07/04/24 22:00 07/09/24 16:17 300 MG Latanoprost 1 drop QPM EACHEYE 07/04/24 18:00 07/09/24 16:21 1 DROP Oxycodone/ Acetaminophen 1 tab Q6HPRN PRN PO 07/04/24 16:15 07/05/24 13:53 1 TAB Pantoprazole Sodium 40 mg DAILY PO 07/05/24 10:00 07/09/24 11:33 40 MG Sertraline HCl 100 mg DAILY PO 07/05/24 10:00 07/09/24 11:32 100 MG Trazodone HCl 50 mg HS PO 07/04/24 22:00 07/08/24 21:54 50 MG Levothyroxine Sodium 75 mcg DAILY PO 07/05/24 10:00 07/09/24 11:32 75 MCG Promethazine HCl 12.5 mg Q4HP PRN PO 07/07/24 10:30 Loperamide HCl 2 mg PRN PRN PO 07/08/24 11:15 07/08/24 15:23 2 MG Albuterol 2.5 mg Q6HPRN PRN NEB 07/08/24 11:15 Laboratory Results Laboratory Tests 07/09/24 05:29 Chemistry Test 07/09/24 05:29 Calcium Level 9.1 mg/dL (8.7-10.4) Urinalysis Test 07/04/24 00:29 07/08/24 22:55 Urine WBC Clumps Present /hpf (None Seen) Urine Yeast (Budding) Occasional /hpf (None Urine Color Light-yellow (Yellow) Urine Clarity Clear (Clear) Urine pH 6.0 (5.0-9.0) Urine Specific [place] 1.010 (1.001-1.035) Urine Protein Trace (Negative) H Urine Ketones Negative (Negative) Urine Blood Negative /uL (Negative) Urine Nitrite Negative (Negative) Urine Bilirubin Negative (Negative) Urine Urobilinogen Normal mg/dL (Negative) Urine Leukocyte Esterase 2+ /uL (Negative) Urine RBC 3 /hpf (0 - 4) Urine WBC 11 /hpf (0 - 5) Urine Squamous Epithelial Cells Few /hpf (<5) Urine Bacteria Few /hpf (None Seen) H Urine Glucose Normal mg/dL (Normal) Microbiology Microbiology Date/Time Source Procedure Growth Status 07/06/24 17:00 Stool Clostridium difficile Toxin Assay - Final Complete 07/05/24 10:42 Nose MRSA Screen - Final Complete Assessment/Plan Assessment/Plan 79-year-old female with a known history of lumbar radiculopathy status post L3-4-5 lumbar spine surgery, hospital course was eventful for right lower extremity DVT started on Eliquis patient presented to the hospital with chest pain fainting and found to have 1. Acute pulmonary embolism right lower lobe segmental status post pulmonary thrombectomy 2. Urinary tract infection 3. Right lower extremity DVT 4. Lumbar radiculopathy status post L3-4-5 spine surgery 5. Diarrhea C diff has been ruled out -continue Imodium p.r.n., -continue Eliquis, physical therapy evaluation and treatment Discharge plan in next 24-48 hours -series chair removal by spine surgery. Plan discussed with: Patient My Orders Orders - MARTIN VALDIVIA MD Procedure Category Date Status Time Transfer Orders XFER 07/09/24 Transmitted 12:08 * Occupational Therapy Instructor CONS 07/09/24 Transmitted Consult Date of Service: Jul 09, 2024 Billing Provider: MARTIN VALDIVIA MD Common Visit Codes: NOT BILLABLE MARTIN VALDIVIA MD Jul 09, 2024 16:47
--- NOTE | 2024-07-09 22:40 | DVHPN2 ---
Progress Note - Dictate Date Seen: Jul 09, 2024 Medical Necessity Reason Pt with a Central, PICC or Fol: No Subjective Patient seen and examined at bedside. Remains on supplemental oxygen Overnight events reviewed. vital signs Vital Sign Date Time Temp Pulse Resp B/P (MAP) Pulse Ox O2 Delivery O2 Flow Rate FiO2 07/09/24 21:00 98.8 72 18 135/77 (96) 97 98.8 07/09/24 13:23 Nasal Cannula 2.0 07/09/24 13:23 28 Total Intake and Output 07/08/24 07/08/24 07/09/24 15:00 23:00 07:00 Intake Total 700 ml 240 ml Output Total 1000 ml Balance 700 ml -760 ml medications Current Medications Medications Dose Ordered Sig/Nalini Route Start Time Stop Time Status Last Admin Dose Admin Acetaminophen 650 mg Q6HP PRN PO 07/04/24 05:45 Ondansetron HCl 4 mg Q4HP PRN IV 07/04/24 05:45 07/07/24 10:30 4 MG Morphine Sulfate 2 mg Q4HPRN PRN IV 07/04/24 05:45 Nitroglycerin 0.4 mg Q5MINP PRN SL 07/04/24 05:45 Morphine Sulfate 2 mg Q30M PRN IV 07/04/24 05:45 Ceftriaxone Sodium 50 ml @ 100 mls/hr Q24H IV 07/04/24 22:00 07/09/24 21:54 100 MLS/HR Apixaban 5 mg BID PO 07/04/24 22:00 07/09/24 21:54 5 MG Furosemide 20 mg DAILY PO 07/05/24 10:00 07/09/24 11:33 20 MG Gabapentin 300 mg TID PO 07/04/24 22:00 07/09/24 21:54 300 MG Latanoprost 1 drop QPM EACHEYE 07/04/24 18:00 07/09/24 16:21 1 DROP Oxycodone/ Acetaminophen 1 tab Q6HPRN PRN PO 07/04/24 16:15 07/05/24 13:53 1 TAB Pantoprazole Sodium 40 mg DAILY PO 07/05/24 10:00 07/09/24 11:33 40 MG Sertraline HCl 100 mg DAILY PO 07/05/24 10:00 07/09/24 11:32 100 MG Trazodone HCl 50 mg HS PO 07/04/24 22:00 07/09/24 21:54 50 MG Levothyroxine Sodium 75 mcg DAILY PO 07/05/24 10:00 07/09/24 11:32 75 MCG Promethazine HCl 12.5 mg Q4HP PRN PO 07/07/24 10:30 Loperamide HCl 2 mg PRN PRN PO 07/08/24 11:15 07/08/24 15:23 2 MG Albuterol 2.5 mg Q6HPRN PRN NEB 07/08/24 11:15 objective Gen.: Patient lying in bed in no apparent distress. On supplemental oxygen. Head: Normocephalic, atraumatic. Eyes: EOMI/PERRLA. Ears: Normal hearing. Normal anatomy. Neck/trachea: Trachea midline, supple. Nose: Normal external anatomy. Mouth: Moist mucous membranes. Chest: Decreased air entry bilaterally. No wheezing or rhonchi. Cardiovascular: Positive S1, positive S2. Regular rate and rhythm. Abdomen: Positive bowel sounds in all 4 quadrants. Soft, non-tender, non- distended. : Deferred. Rectal: Deferred. Skin: Warm, dry. Intact. Extremities: 2+ radial pulses bilaterally. No lower extremity edema. Neuro: Awake, alert, oriented x3. No gross motor or sensory deficits. Cranial nerves II through XII intact. Gait not assessed. laboratory and microbiology Laboratory Tests 07/09/24 05:29 Test 07/09/24 05:29 Range/Units Serum Glucose 95 74-106 mg/dL Assessment/Plan Impression: Pulmonary embolism Dyspnea due to pulmonary embolism Acute exacerbation of CHF Elevated D-dimer due to pulmonary embolism Anemia Urinary tract infection Obesity with a BMI of 30.3 Hiatal hernia Events: Remains on supplemental oxygen, 2 LPM NC Taper O2 as tolerated PT evaluation Recommend SNF placement. Patient improving s/p thrombectomy for PE. Continue anticoagulation DAWSON slowly improving. Bronchodilators PRN shortness of breath. Continue antibiotics Incentive spirometry Eliquis BID Protonix for GI prophylaxis Diurese w/ Lasix 20 mg QD Monitor renal function. Monitor electrolytes. Supplement as necessary. Potassium supplementation - K of 3.2 C. diff negative. Imodium for diarrhea. Monitor hemoglobin Monitor WBC Disposition per hospitalist. Labs and imaging reviewed. Rest of plan as noted below. Plan: CT of the chest demonstrates right lower lobe segmental pulmonary embolism. Elevated RV to LV ratio concerning for right heart strain. Scattered opacities in the right middle and left upper and lower lobes. No pleural effusion or pneumothorax. Supplemental oxygen Keep O2 saturation above 92%. Continue antibiotics Follow up cultures. PE, status post thrombectomy. Continue diuresis to maintain euvolemia. Monitor ins and outs. Monitor renal function. Monitor electrolytes. Supplement as necessary. Monitor hemoglobin closely due to anemia. Prognosis: Poor given multiple comorbidities. Rest of plan per hospitalist and other consultants. Thank you FRAN Muñoz for allowing me to participate in this patient's care. Further recommendations will depend on patient's clinical course. Please do not hesitate to contact me if you have any questions or concerns. This medical document was created using an electronic medical record system with [employer] dictation system. Although this document has been carefully reviewed, there may still be some phonetic and typographical errors. These areas are purely typographical due to imperfections of the software programs, and do not reflect any compromise in the patient's medical care. Dietary Evaluation Review Comments: Continue current plan of care Expected Outcomes/Goals: F/U in 3-5 days Plan discussed with: Patient, Other (DAVID Henderson) MICHAEL QUINTERO MD Jul 09, 2024 22:40
[2024-07-10] VITALS (9 sets, daily range): BP systolic 116–154; BP diastolic 42–74; PULSE 63–90; RESP 17–20; TEMP 97.3–98.2; O2SAT 93–98
--- NOTE | 2024-07-10 16:56 | DVHDS2 ---
Discharge Summary Date of Admission Jul 04, 2024 at 05:49 Date of Discharge: Jul 10, 2024 Labs/Diagnostic Data: Laboratory Results Test 07/09/24 05:29 07/08/24 22:55 07/08/24 22:33 07/07/24 05:49 White Blood Count 3.8 10^3/uL (4.4-10.8) Red Blood Count 2.72 10^6/uL (4.0-5.20) Hemoglobin 7.5 g/dL (12.2-16.2) Hematocrit 23.3 % (36.0-46.0) Mean Corpuscular Volume 85.4 fL (80.0-100.0) Mean Corpuscular Hemoglobin 27.6 pg (28.0-32.0) Mean Corpuscular Hemoglobin Concent 32.4 g/dL (32.0-36.0) Red Cell Distribution Width 15.3 % (11.8-14.3) Platelet Count 199 10^3/uL (140-450) Mean Platelet Volume 7.3 fL (6.9-10.8) Neutrophils (%) (Auto) % (37.0-80.0) Lymphocytes (%) (Auto) % (10.0-50.0) Monocytes (%) (Auto) % (0.0-12.0) Basophils (%) (Auto) % (0.0-2.0) Neutrophils # (Auto) 10 ^3/uL (1.6-8.6) Lymphocytes # (Auto) 10 ^3/uL (0.4-5.4) Monocytes # (Auto) 10 ^3/uL (0-1.3) Differential Total Cells Counted 100.0 (100) Neutrophils % (Manual) 60 (37.0-80.0) Band Neutrophils % (Manual) 0 Lymphocytes % (Manual) 28 (10.0-50.0) Monocytes % (Manual) 9 (0-12) Eosinophils % (Manual) 3 (0-7) Basophils % (Manual) 0 (0.0-2.0) Metamyelocytes % (manual) 0 Myelocytes % (Manual) 0 Promyelocytes % (Manual) 0 Blast Cells % (Manual) 0 Reactive Lymphocytes 0 Platelet Estimate Adequate Sodium Level 146 mmol/L (136-145) Potassium Level 3.2 mmol/L (3.5-5.1) Chloride Level 105 mmol/L (98-107) Carbon Dioxide Level 34 mmol/L (20-31) Anion Gap 7 (5-15) Blood Urea Nitrogen 7 mg/dL (9-23) Creatinine 0.71 mg/dL (0.550-1.02) Glomerular Filtration Rate Calc 86 mL/min (>90) BUN/Creatinine Ratio 9.9 (10.0-20.0) Serum Glucose 95 mg/dL (74-106) Calcium Level 9.1 mg/dL (8.7-10.4) Urine Color Light-yellow (Yellow) Urine Clarity Clear (Clear) Urine pH 6.0 (5.0-9.0) Urine Specific [place] 1.010 (1.001-1.035) Urine Protein Trace (Negative) Urine Ketones Negative (Negative) Urine Blood Negative /uL (Negative) Urine Nitrite Negative (Negative) Urine Bilirubin Negative (Negative) Urine Urobilinogen Normal mg/dL (Negative) Urine Leukocyte Esterase 2+ /uL (Negative) Urine RBC 3 /hpf (0 - 4) Urine WBC 11 /hpf (0 - 5) Urine Squamous Epithelial Cells Few /hpf (<5) Urine Bacteria Few /hpf (None Seen) Urine Glucose Normal mg/dL (Normal) Lactic Acid Level 1.0 mmol/L (0.4-2.0) Eosinophils (%) (Auto) 1.3 % (0.0-7.0) Eosinophils # (Auto) 0.1 10 ^3/uL (0-0.8) Basophils # (Auto) 0 10 ^3/uL (0-0.2) Nucleated Red Blood Cells 0.1 % Test 07/04/24 19:25 07/04/24 06:22 07/04/24 00:29 07/03/24 21:07 Blood Gas Specimen Type Arterial Blood Gas Sample Site Right radial Blood Gas Patient Temperature 37.0 Arterial Blood Date Drawn [id number] Arterial Blood pH 7.424 (7.350-7.450) Arterial Blood Partial Pressure CO2 48.7 mmHg (32.0-45.0) Arterial Blood Partial Pressure O2 90.9 mmHg (83.0-108.0) Arterial Blood HCO3 31.2 mmol/L (21.0-28.0) Arterial Blood Oxygen Saturation 96.6 % (94.0-98.0) Arterial Blood Base Excess 6.0 mmol/L (-2.0-3.0) Arterial Blood Oxyhemoglobin 95.6 % (94.0-98.0) Arterial Blood Carboxyhemoglobin 0.3 % (0.5-1.5) Arterial Blood Methemoglobin 0.7 % (0.0-1.5) Luis Test Modified Blood Gas Total Hemoglobin 8.80 g/dL (12.0-16.0) Blood Gas Liter Flow 3.00 Blood Gas Modality Nasal cannula FiO2 % 32.0 Prothrombin Time 11.9 sec (9.3-11.8) Prothrombin Time INR 1.13 (0.9-1.15) Activated Partial Thromboplast Time 28.0 SEC (24.5-34.5) Urine WBC Clumps Present /hpf (None Seen) Urine Yeast (Budding) Occasional /hpf (None Troponin I High Sensitivity 28 ng/L (</=34) Test 07/03/24 18:00 D-Dimer, Quantitative 0.95 mg/L FEU (0.0-0.49) Total Bilirubin 0.2 mg/dL (0.2-1.0) Aspartate Amino Transferase (AST) 18 U/L (13-40) Alanine Aminotransferase (ALT) 16 U/L (7-40) Alkaline Phosphatase 64 U/L (46-116) B-Type Natriuretic Peptide 311.93 pg/mL (0-100) Total Protein 5.3 g/dL (5.7-8.2) Albumin 3.4 g/dL (3.2-4.8) Lipase 19 U/L (12-53) Other Laboratory Tests 07/09/24 05:29 Brief Hx & Hospital Course: 79-year-old female with a known history of lumbar radiculopathy status post L3-4-5 lumbar spine surgery, hospital course was eventful for right lower extremity DVT started on Eliquis patient presented to the hospital with chest pain , fainting and found to have acute pulmonary embolism. Patient was started on heparin drip, IR and cardiology was consulted. Patient underwent thrombectomy. Postprocedure patient did fairly well but severely physically deconditioned. Patient was hospital course was eventful for diarrhea C diff has been ruled out. Currently diarrhea is getting better. Patient was qualify for home oxygen requirement which will be arranged. Home health home safety evaluation will be arranged. Patient was being discharged under stable condition. Condition at Discharge: Stable Final Diagnosis/Problems List 1. Acute pulmonary embolism right lower lobe segmental status post pulmonary thrombectomy 2. Urinary tract infection treated 3. Right lower extremity DVT 4. Lumbar radiculopathy status post L3-4-5 spine surgery 5. Diarrhea C diff has been ruled out 6. Physical deconditioning, patient was refused to go to nursing home facility Discharge Disposition: Home with Health Services SNF Discharge Will this Physician continue t: No Discharge Instruct/Medications Diet: Cardiac 2g Na,low cholest Activity: See Comment Activity comment: No driving, no setting of legal documents, no planning on heavy machinery while on narcotics. Follow Up/Referral: Follow up with the PCP in 1-2 weeks Follow up with Dr. Alvaro Worthington spine surgery as scheduled. Medications: Resume home medications including Eliquis. Discharge Statement: "Patient was advised to return to the ER or call 911 if any headaches, dizziness, shortness of breath, chest pain, abdominal pain, bleeding, fevers, or worsening of medical condition. Patient was counseled about treatment plan, medications, possible side effects, patientverbalized understanding. All questions were answered to the best of my ability. This discharge took greater then 30 minutes in planning, reviewing documentation, counseling the patient, and discussing with other team members." ASSESSMENT ASSESSMENT Assessment 79-year-old female with a known history of lumbar radiculopathy status post L3-4-5 lumbar spine surgery, hospital course was eventful for right lower extremity DVT started on Eliquis patient presented to the hospital with chest pain fainting and found to have 1. Acute pulmonary embolism right lower lobe segmental status post pulmonary thrombectomy 2. Urinary tract infection 3. Right lower extremity DVT 4. Lumbar radiculopathy status post L3-4-5 spine surgery 5. Diarrhea C diff has been ruled out Date of Service: Jul 10, 2024 Billing Provider: MARTIN VALDIVIA MD Common Visit Codes: NOT BILLABLE MARTIN VALDIVIA MD Jul 10, 2024 16:56
[2024-07-11 00:57] VITALS: BP 119/60; PULSE 80; RESP 20; TEMP 97.5; O2SAT 96
[2024-07-11 05:00] VITALS: BP 138/63; PULSE 14; RESP 17; TEMP 98.1; O2SAT 96
[2024-07-11 09:48] VITALS: BP 112/39; PULSE 64; RESP 18; TEMP 98.3; O2SAT 98
[2024-07-11 13:00] VITALS: BP 136/67; PULSE 83; RESP 20; TEMP 97.9; O2SAT 95
[2024-07-11 13:47] VITALS: BP 138/63
--- NOTE | 2024-07-11 15:55 | DVHPN2 ---
Progress Note - Dictate Date Seen: Jul 11, 2024 Medical Necessity Reason Pt with a Central, PICC or Fol: No Subjective Patient seen and examined at bedside. Remains on supplemental oxygen Overnight events reviewed. vital signs Vital Sign Date Time Temp Pulse Resp B/P (MAP) Pulse Ox O2 Delivery O2 Flow Rate FiO2 07/11/24 13:00 97.9 83 20 136/67 (90) 95 97.9 07/11/24 08:00 Nasal Cannula* 2 28 Total Intake and Output 07/10/24 07/10/24 07/11/24 15:00 23:00 07:00 Intake Total 524 ml 1424 ml 480 ml Output Total 402 ml 3 ml Balance 524 ml 1022 ml 477 ml medications Current Medications Medications Dose Ordered Sig/Nalini Route Start Time Stop Time Status Last Admin Dose Admin Acetaminophen 650 mg Q6HP PRN PO 07/04/24 05:45 Ondansetron HCl 4 mg Q4HP PRN IV 07/04/24 05:45 07/07/24 10:30 4 MG Morphine Sulfate 2 mg Q4HPRN PRN IV 07/04/24 05:45 Nitroglycerin 0.4 mg Q5MINP PRN SL 07/04/24 05:45 Morphine Sulfate 2 mg Q30M PRN IV 07/04/24 05:45 Ceftriaxone Sodium 50 ml @ 100 mls/hr Q24H IV 07/04/24 22:00 07/10/24 22:12 100 MLS/HR Apixaban 5 mg BID PO 07/04/24 22:00 07/11/24 10:34 5 MG Furosemide 20 mg DAILY PO 07/05/24 10:00 07/11/24 10:34 20 MG Gabapentin 300 mg TID PO 07/04/24 22:00 07/11/24 04:36 300 MG Latanoprost 1 drop QPM EACHEYE 07/04/24 18:00 07/10/24 22:11 1 DROP Oxycodone/ Acetaminophen 1 tab Q6HPRN PRN PO 07/04/24 16:15 07/05/24 13:53 1 TAB Pantoprazole Sodium 40 mg DAILY PO 07/05/24 10:00 07/11/24 10:34 40 MG Sertraline HCl 100 mg DAILY PO 07/05/24 10:00 07/11/24 10:34 100 MG Trazodone HCl 50 mg HS PO 07/04/24 22:00 07/10/24 22:12 50 MG Levothyroxine Sodium 75 mcg DAILY PO 07/05/24 10:00 07/11/24 10:33 75 MCG Promethazine HCl 12.5 mg Q4HP PRN PO 07/07/24 10:30 Loperamide HCl 2 mg PRN PRN PO 07/08/24 11:15 07/08/24 15:23 2 MG objective Gen.: Patient lying in bed in no apparent distress. On supplemental oxygen. Head: Normocephalic, atraumatic. Eyes: EOMI/PERRLA. Ears: Normal hearing. Normal anatomy. Neck/trachea: Trachea midline, supple. Nose: Normal external anatomy. Mouth: Moist mucous membranes. Chest: Decreased air entry bilaterally. No wheezing or rhonchi. Cardiovascular: Positive S1, positive S2. Regular rate and rhythm. Abdomen: Positive bowel sounds in all 4 quadrants. Soft, non-tender, non- distended. : Deferred. Rectal: Deferred. Skin: Warm, dry. Intact. Extremities: 2+ radial pulses bilaterally. No lower extremity edema. Neuro: Awake, alert, oriented x3. No gross motor or sensory deficits. Cranial nerves II through XII intact. Gait not assessed. laboratory and microbiology Laboratory Tests 07/09/24 05:29 Test 07/09/24 05:29 Range/Units Serum Glucose 95 74-106 mg/dL Assessment/Plan Impression: Pulmonary embolism Dyspnea due to pulmonary embolism Acute exacerbation of CHF Elevated D-dimer due to pulmonary embolism Anemia Urinary tract infection Obesity with a BMI of 30.3 Hiatal hernia Events: Remains on supplemental oxygen, 2 LPM NC Taper O2 as tolerated PT evaluation Recommend SNF placement. Patient improving s/p thrombectomy for PE. Continue anticoagulation Bronchodilators PRN shortness of breath. Eliquis BID Protonix for GI prophylaxis Diurese w/ Lasix 20 mg QD Monitor renal function. Monitor electrolytes. Supplement as necessary. Monitor hemoglobin Monitor WBC Patient is stable for discharge from the pulmonary standpoint. Disposition per hospitalist. Labs and imaging reviewed. Rest of plan as noted below. Plan: CT of the chest demonstrates right lower lobe segmental pulmonary embolism. Elevated RV to LV ratio concerning for right heart strain. Scattered opacities in the right middle and left upper and lower lobes. No pleural effusion or pneumothorax. Supplemental oxygen Keep O2 saturation above 92%. Bronchodilators Completed antibiotics C. diff negative. PE, status post thrombectomy. Continue diuresis to maintain euvolemia. Monitor ins and outs. Monitor renal function. Monitor electrolytes. Supplement as necessary. Monitor hemoglobin closely due to anemia. Prognosis: Poor given multiple comorbidities. Rest of plan per hospitalist and other consultants. Thank you FRAN Muñoz for allowing me to participate in this patient's care. Further recommendations will depend on patient's clinical course. Please do not hesitate to contact me if you have any questions or concerns. This medical document was created using an electronic medical record system with [employer] dictation system. Although this document has been carefully reviewed, there may still be some phonetic and typographical errors. These areas are purely typographical due to imperfections of the software programs, and do not reflect any compromise in the patient's medical care. Dietary Evaluation Review Comments: Continue current plan of care Expected Outcomes/Goals: F/U in 3-5 days Plan discussed with: Patient, Other (DAVID Cadet) MICHAEL QUINTERO MD Jul 11, 2024 15:55
== END 2024-07-11 16:00 | disposition home health service (06) | DRG 163 ==
LOC: EDBD 17:32 → ER 17:32 → OVERFLOW 07-04 05:49 → TELE-WESTW 07-04 17:16 → WEST WING 07-09 12:10
PROVIDERS: ADMIT Nurse Practitioner Family; ATTEND Hospitalist
PROC: 02CQ3ZZ Extirpation of Matter from Right Pulmonary Artery, Percutaneous Approach (ICD-10-PCS; principal; 2024-07-04)
PROC: B31TYZZ Fluoroscopy of Left Pulmonary Artery using Other Contrast (ICD-10-PCS; 2024-07-04)
PROC: B31SYZZ Fluoroscopy of Right Pulmonary Artery using Other Contrast (ICD-10-PCS; 2024-07-04)
PROC: B41GYZZ Fluoroscopy of Left Lower Extremity Arteries using Other Contrast (ICD-10-PCS; 2024-07-04)
PROC: B41FYZZ Fluoroscopy of Right Lower Extremity Arteries using Other Contrast (ICD-10-PCS; 2024-07-04)
DX: I26.99 Other pulmonary embolism without acute cor pulmonale (principal); I50.23 Acute on chronic systolic (congestive) heart failure; I13.0 Hypertensive heart and chronic kidney disease with heart failure and stage 1 through stage 4 chronic kidney disease, or unspecified chronic kidney disease; N39.0 Urinary tract infection, site not specified; I82.411 Acute embolism and thrombosis of right femoral vein; Z68.30 Body mass index [BMI] 30.0-30.9, adult; E66.9 Obesity, unspecified; D64.9 Anemia, unspecified; I50.9 Heart failure, unspecified; K44.9 Diaphragmatic hernia without obstruction or gangrene; M54.16 Radiculopathy, lumbar region; N18.9 Chronic kidney disease, unspecified; Z86.718 Personal history of other venous thrombosis and embolism; Z98.1 Arthrodesis status; Z79.01 Long term (current) use of anticoagulants
CPT/HCPCS: 36415; 36600; 37184; 71045; 71275; 75743; 80048; 80053; 81001; 82805; 83605; 83690; 83880; 84484; 85007; 85025; 85027; 85379; 85610; 85730; 87081; 87086; 87186; 87493; 93005; 93306; 93970; 96365; 96366; 96367; 97110; 97116; 97163; 97530; 99152; C1769; G0378; J2003; J2250; J2405; J3480; Q9967

== ENCOUNTER 2024-08-16 17:46 | Inpatient (IN) | payer BC, MEDICARE ==
[~2024-08-16] VITALS: Ht 154.9 cm; Wt 99.3 kg
[~2024-08-16 17:46] MED LIST changes: +TRIA75TA10 PO
[2024-08-16 18:38] LABS: Basophils # (auto) 0 10 ^3/uL (0-0.2); Basophils % (auto) 0.2 % (0.0-2.0); Eosinophils # (auto) 0 10 ^3/uL (0-0.8); Eosinophils % (auto) 0.3 % (0.0-7.0); Hematocrit 32.7 % (36.0-46.0); Hemoglobin 10.3 g/dL (12.2-16.2); Lymphocytes # (auto) 2.5 10 ^3/uL (0.4-5.4); Lymphocytes % (auto) 25.1 % (10.0-50.0); Mean Corpuscular Hemoglobin 23.6 pg (28.0-32.0); Mean Corpuscular Hgb Conc. 31.5 g/dL (32.0-36.0); Monocytes # (auto) 0.7 10 ^3/uL (0-1.3); Monocytes % (auto) 7.3 % (0.0-12.0); Neutrophils # (auto) 6.6 10 ^3/uL (1.6-8.6); Neutrophils % (auto) 67.1 % (37.0-80.0); Nucleated Red Blood Cells % 0.1 %; Platelet Count (auto) 418 10^3/uL (140-450); Red Blood Cells 4.36 10^6/uL (4.0-5.20); Red Cell Distribution Width 17.2 % (11.8-14.3); White Blood Cell 9.9 10^3/uL (4.4-10.8)
[2024-08-16 18:42] LABS: Potassium 4.4 mmol/L (3.5-5.1)
[2024-08-16 18:43] LABS: Anion Gap 9 (5-15); Carbon Dioxide 27 mmol/L (20-31)
[2024-08-16 18:48] LABS: BUN/Creatinine Ratio 25.3 (10.0-20.0)
--- NOTE | 2024-08-16 18:48 | ED.PDOC ---
History of Present Illness HPI Comments 79 year old female came to ER via EMS due to dizziness. Patient was discharged here last Jul 11 and was diagnosed with 1. Acute pulmonary embolism right lower lobe segmental status post pulmonary thrombectomy, 2. Urinary tract infection treated, 3. Right lower extremity DVT, 4. Lumbar radiculopathy status post L3-4-5 spine surgery, 5. Diarrhea C diff has been ruled out, 6. Physical deconditioning, patient was refused to go to senior care facility. Patient states last night, she started having dizziness and frontal headaches, causing her difficulty ambulating/standing up. Also complaining about diffuse chest pains radiating to her back. Persistence of symptoms brought the patient to come to the ER. Chief Complaint: Dizziness Time Seen by MD: 18:48 Primary Care Provider: WARNER Miller Notes: Nurses Notes Allergies: Coded Allergies: NO KNOWN ALLERGIES (Unverified , 06/15/24) Home Meds Active Scripts Apixaban Base (ELIQUIS) 5 Mg Tab, 5 MG PO BID, #90 TAB Prov:ROBBIN REDDING MD 06/27/24 Naloxone HCl (Narcan) 4 Mg/0.1 Ml Spr, 4 MG NA Q5MINP PRN, #1 SPRAY Prov:ROBBIN REDDING MD 06/27/24 Oxycodone W/ Acetaminophen (Percocet 5/325MG) 1 Tab Tb, 1 TAB PO Q6HPRN PRN, #20 TAB Prov:ROBBIN REDDING MD 06/27/24 Senna (Senokot) 8.6 Mg Tab, 8.6 MG PO DAILY@DINNER, #20 TAB Prov:ROBBIN REDDING MD 06/27/24 Reported Medications Latanoprost (LATANOPROST) 0.005 % Tracy, 1 DROP EACHEYE QPM, #7.5 ML 3 Refills 06/16/24 Trazodone Hcl (Trazodone Hcl) 50 Mg Tab, 50 MG PO HS, MG 06/16/24 Pantoprazole Sodium Sesquihydr (Protonix) 40 Mg Tab, 40 MG PO DAILY, #30 TAB 06/16/24 Sertraline Hcl (Sertraline Hcl) 50 Mg Tab, 100 MG PO DAILY for 30 Days, MG 06/16/24 Gabapentin (Gabapentin) 300 Mg Cap, 300 MG PO TID for 30 Days, MG 06/16/24 Furosemide (Furosemide) 20 Mg Tab, 20 MG PO DAILY for 30 Days, MG 06/16/24 Levothyroxine Sodium (Levothyroxine Sodium) 75 Mcg Tab, 1 TAB PO DAILY, #30 TAB 5 Refills 06/16/24 Information Source: Patient Mode of Arrival: EMS Severity: Moderate Timing: Hours Duration: Since onset Prehospital treatment: None Past Medical History PAST MEDICAL HISTORY: CKF, GERD, High Lipids, HTN, PE, Thyroid Surgical History (Other): Thrombectomy, back surgery DATA STORAGE SPECIALIST History: No Pertinent DATA STORAGE SPECIALIST History Family History Family History: Reviewed,noncontributory to illness Social History Smoker: Non-Smoker Alcohol: Denies ETOH Use Drugs: Denies Drug Use Lives In: Home Constitutional: denies: chills, diaphoresis, fatigue, fever, malaise, sweats, weakness, others EENTM: denies: blurred vision, double vision, ear bleeding, ear discharge, ear drainage, ear pain, ear ringing, eye pain, eye redness, hearing loss, mouth pain, mouth swelling, nasal discharge, nose bleeding, nose congestion, nose pain, photophobia, tearing, throat pain, throat swelling, voice changes, others Respiratory: denies: cough, hemoptysis, orthopnea, SOB at rest, shortness of breath, SOB with excertion, stridor, wheezing, others Cardiovascular: reports: chest pain; denies: dizzy spells, diaphoresis, Dyspnea on exertion, edema, irregular heart beat, left arm pain, lightheadedness, palpitations, PND, syncope, others Gastrointestinal: denies: abdomen distended, abdominal pain, blood streaked bowels, constipated, diarrhea, dysphagia, difficulty swallowing, hematemesis, melena, nausea, poor appetite, poor fluid intake, rectal bleeding, rectal pain, vomiting, others Genitourinary: denies: abnormal vagina bleeding, burning, dyspareunia, dysuria, flank pain, frequency, hematuria, incontinence, pain, , vagina discharge, urgency, others Neurological: reports: dizziness, headache; denies: fainting, left sided numbness, left sided weakness, numbness, paresthesia, pre-existing deficit, right sided numbness, right sided weakness, seizure, speech problems, tingling, tremors, weakness, others Musculoskeletal: reports: back pain; denies: gout, joint pain, joint swelling, muscle pain, muscle stiffness, neck pain, others Integumetry: denies: bruises, change in color, change in hair/nails, dryness, laceration, lesions, lumps, rash, wounds, others Allergic/Immunocompromised: denies: Difficulty Healing, Frequent Infections, Hives, Itching, others Hematologic/Lymphatic: denies: anemia, blood clots, easy bleeding, easy bruising, swollen glands, others Endocrine: denies: excessive hunger, excessive sweating, excessive thirst, excessive urination, flushing, intolerance to cold, intolerance to heat, unexplained weight gain, unexplained weight loss, others Psychiatric: denies: anxiety, bipolar disorder, depression, hopeless, panic disorder, schizophrenia, sleepless, suicidal, others Physical Exam General Appearance: No Apparent Distress, Normal HEENT: Normal ENT Inspection, Pharynx Normal, TMs Normal Neck: Full Range of Motion, Non-Tender, Normal, Normal Inspection Respiratory: Chest Non-Tender, Lungs Clear, No Accessory Muscle Use, No Respiratory Distress, Normal Breath Sounds Cardiovascular: No Edema, No JVD, No Murmur, No Gallop, Normal Peripheral Pulses, Regular Rate/Rhythm Breast Exam: Deferred Gastrointestinal: No Organomegaly, Non Tender, No Pulsatile Mass, Normal Bowel Sounds, Soft Genitalia: Deferred Pelvic: Deferred Rectal: Deferred Extremities: No calf tenderness, Normal capillary refill, Normal inspection, Normal range of motion, Non-tender, No pedal edema Musculoskeletal : Apperance: Normal Neurologic: Alert, academic specialist II-XII nml as Tested, No Motor Deficits, Normal Affect, Normal Mood, No Sensory Deficits Cerebellar Function: Normal Reflexes: Normal Skin: Dry, Normal Color, Warm Lymphatic: No Adenopathy Was a procedure done? Was a procedure done?: No EKG EKG : Pulse Rate (adult): 84 Cardiac Rhythm: NSR Differential Dx Considerations may include: Anemia, electrolyte imbalance, anxiety, coronary artery disease, vertigo X-Ray, Labs, Meds, VS Vital Signs Date Time Temp Pulse Resp B/P (MAP) Pulse Ox O2 Delivery O2 Flow Rate FiO2 08/16/24 19:30 99.0 87 26 123/69 (87) 99 99.0 08/16/24 19:30 87 26 99 Room Air* 0 21 08/16/24 18:48 84 08/16/24 18:01 99.1 80 20 153/88 (109) 99 08/16/24 17:54 84 08/16/24 17:50 99.1 80 20 153/88 (109) 99 99.1 Lab Test 08/16/24 19:23 08/16/24 18:52 08/16/24 18:17 Range/Units Troponin I High Sensitivity 6 5 </=34 ng/L Urine Color Colorless Yellow Urine Clarity Turbid H Clear Urine pH 7.5 5.0-9.0 Urine Specific [place] 1.012 1.001-1.035 Urine Protein Negative Negative Urine Ketones Negative Negative Urine Blood Negative Negative /uL Urine Nitrite Negative Negative Urine Bilirubin Negative Negative Urine Urobilinogen Normal Negative mg/dL Urine Leukocyte Esterase 3+ Negative /uL Urine RBC 1 0 - 4 /hpf Urine WBC 40 0 - 5 /hpf Urine Squamous Epithelial Cells Few <5 /hpf Urine Bacteria None seen None Seen /hpf Urine Glucose Normal Normal mg/dL White Blood Count 9.9 4.4-10.8 10^3/uL Red Blood Count 4.36 4.0-5.20 10^6/uL Hemoglobin 10.3 L 12.2-16.2 g/dL Hematocrit 32.7 L 36.0-46.0 % Mean Corpuscular Volume 75.0 L 80.0-100.0 fL Mean Corpuscular Hemoglobin 23.6 L 28.0-32.0 pg Mean Corpuscular Hemoglobin Concent 31.5 L 32.0-36.0 g/dL Red Cell Distribution Width 17.2 H 11.8-14.3 % Platelet Count 418 140-450 10^3/uL Mean Platelet Volume 8.0 6.9-10.8 fL Neutrophils (%) (Auto) 67.1 37.0-80.0 % Lymphocytes (%) (Auto) 25.1 10.0-50.0 % Monocytes (%) (Auto) 7.3 0.0-12.0 % Eosinophils (%) (Auto) 0.3 0.0-7.0 % Basophils (%) (Auto) 0.2 0.0-2.0 % Neutrophils # (Auto) 6.6 1.6-8.6 10 ^3/uL Lymphocytes # (Auto) 2.5 0.4-5.4 10 ^3/uL Monocytes # (Auto) 0.7 0-1.3 10 ^3/uL Eosinophils # (Auto) 0 0-0.8 10 ^3/uL Basophils # (Auto) 0 0-0.2 10 ^3/uL Nucleated Red Blood Cells 0.1 % Prothrombin Time 11.9 H 9.3-11.8 sec Prothrombin Time INR 1.14 0.9-1.15 Activated Partial Thromboplast Time 27.1 24.5-34.5 SEC Sodium Level 134 L 136-145 mmol/L Potassium Level 4.4 3.5-5.1 mmol/L Chloride Level 98 98-107 mmol/L Carbon Dioxide Level 27 20-31 mmol/L Anion Gap 9 5-15 Blood Urea Nitrogen 42 H 9-23 mg/dL Creatinine 1.66 H 0.550-1.02 mg/dL Glomerular Filtration Rate Calc 31 >90 mL/min BUN/Creatinine Ratio 25.3 H 10.0-20.0 Serum Glucose 130 H 74-106 mg/dL Calcium Level 12.0 H 8.7-10.4 mg/dL Current Medications Medications (Trade) Dose Ordered Sig/Nalini Route Start Time Stop Time Status Last Admin Oxycodone/ Acetaminophen (Percocet 5/ 325MG Tablet) 2 tab ONCE ONCE PO 08/16/24 19:45 08/16/24 19:46 DC 08/16/24 19:53 Time of 1ST Reevaluation: 18:41 Reevaluation 1ST: Unchanged Patient Education/Counseling: Diagnosis, Treatment Family Education/Counseling: No Family Present Departure 1 Departure Time of Disposition: 20:38 (Patient with a urinary tract infection and dizziness and chest pain. Patient's kidney function does not seem good enough to tolerate a CTA of her chest. Patient is anticoagulated. Patient will be admitted for further workup and expert consultation.) Impression: Primary Impression: Acute chest pain Additional Impressions: Dizziness Acute cystitis Qualified Codes: N30.00 - Acute cystitis without hematuria Disposition: ADMITTED INPATIENT Admit to: Med Surg Condition: Serious Critical Care Note Critical Care Time?: Yes Critical care comment: Acute chest pain Authorized and Performed by: Cuong Cervantes MD Total critical care time: Approximately 36 minutes Due to a high probability of clinically significant, life threatening deterioration, the patient required my highest level of preparedness to intervene emergently and I personally spent this critical care time directly and personally managing the patient. This critical care time included obtaining a history; examining the patient; pulse oximetry; ordering and review of studies; arranging urgent treatment with development of a management plan; evaluation of patient's response to treatment; frequent reassessment; and, discussions with other providers. This critical care time was performed to assess and manage the high probability of imminent, life-threatening deterioration that could result in multi-organ failure. It was exclusive of separately billable procedures and treating other patients and teaching time. Please see my other sections and the rest of the note for further information on patient assessment and treatment. Stability Stability form required: No Heart Score Heart Score: Heart Score Response (Comments) Value History N/A 0 EKG N/A 0 Age N/A 0 Risk Factors N/A 0 Troponin N/A 0 Total 0 I personally scribed for CUONG CERVANTES MD ([email or web address]) on 08/16/24 at 18:48. Electronically submitted by Neri Park ([email or web address]). CUONG CERVANTES MD Aug 16, 2024 18:48
[2024-08-16 18:51] LABS: Blood Urea Nitrogen 42 mg/dL (9-23); Chloride 98 mmol/L (98-107); Glucose 130 mg/dL (74-106); Sodium 134 mmol/L (136-145)
[2024-08-16 18:55] LABS: INR 1.14 (0.9-1.15); Partial Thromboplastin Time 27.1 SEC (24.5-34.5); Prothrombin Time 11.9 sec (9.3-11.8)
[2024-08-16 19:30] VITALS: PULSE 87; RESP 26; O2SAT 99
[2024-08-16] MEDS: OXYCODONE W/ ACETAMINOPHEN 5/325MG TABLET PO ONE (19:53)
[2024-08-16 20:00] LABS: Urine Bacteria None Seen /hpf (None Seen)
[2024-08-16 20:26] LABS: Urine Blood Negative /uL (Negative); Urine Clarity Turbid (Clear); Urine Color Colorless (Yellow); Urine Protein, UAD Negative (Negative); Urine Specific Gravity 1.012 (1.001-1.035); Urine Squamous Epithelial Cell FEW /hpf (<5); Urine Urobilinogen Normal (Negative); Urine WBC 40 /hpf (0 - 5); Urine pH 7.5 (5.0-9.0)
--- NOTE | 2024-08-16 20:35 | DVH ---
Exam: CT HEAD WITHOUT CONTRAST History: dizziness Technique: [address] images through the posterior fossa and the supratentorial compart ment were acquired without contrast and imaged using soft tissue and bone algorithms. RADIATION DOSE: DLP 980.93 mGy.cm; CTDI vol 55.4 mGy. Comparison: None Findings: There is no evidence of an intracranial hemorrhage, acute large vessel infarct, mass effect, or midli ne shift. Hypodense foci in bilateral frontal lobes and basal ganglia. There is mild cerebral atrophy. Mild calcification of the carotid siphons. Mucus retention cysts in the left sphenoid and bilateral maxillary sinuses. The calvarium, orbits, re maining paranasal sinuses, sella, middle ears, and mastoids are unremarkable. The superficial soft tissues are within normal limits. Impression: 1. Hypodense foci in bilateral frontal lobes and basal ganglia may reflect age indeterminate infarcts . Consider MRI for further evaluation as clinically indicated.
[2024-08-16] MEDS ORDERED: MORPHINE SULFATE INJ 2 MG/ml SYRG IV PRN (21:30)
[2024-08-16] MEDS ORDERED: NITROGLYCERIN 0.4 MG SL TAB SL PRN (21:30)
[2024-08-16] MEDS ORDERED: ACETAMINOPHEN 325 MG TAB PO PRN (21:30)
[2024-08-16] MEDS ORDERED: HYDROcodone-ACET 5/325MG TAB PO PRN (21:30)
[2024-08-16] MEDS ORDERED: MELATONIN 5 MG TAB PO PRN (21:30)
[2024-08-16] MEDS ORDERED: ONDANSETRON HCL 4 MG/2 ML VIAL IV PRN (21:30)
[2024-08-16] MEDS: GABAPENTIN 300 MG CAP PO ONE (21:35)
[2024-08-16] MEDS: cefTRIAXone 1GM/50ML D5W 50 ML IV ONE (21:35)
--- NOTE | 2024-08-16 22:27 | DVH ---
CHEST RADIOGRAPH Indication: chest pain Technique: Single frontal view of the chest was obtained Comparison: XY CHEST XRAY 1 VIEW on DOS: 07/05/24, XY CHEST XRAY 1 VIEW on DOS: 07/04/24, XY CHEST PORT ABLE on DOS: 06/18/24 FINDINGS: Lines and Tubes: None Lungs: No focal consolidation. Pleura: No effusion. No pneumothorax. Cardiomediastinal contours: Unremarkable Bones: No acute osseous abnormality. IMPRESSION: 1. No acute cardiopulmonary disease. HS:Y
[2024-08-16 22:36] LABS: HDL Cholesterol 52 mg/dL (40-59)
[2024-08-16 22:37] LABS: Cholesterol 210 mg/dL (< 200); LDL Cholesterol 117 mg/dL (< 100); Triglycerides 305 mg/dL (< 150)
[2024-08-16] MEDS: ATORVASTATIN 20 MG TAB PO SCH (22:37)
[2024-08-16 23:05] VITALS: BP 106/74; PULSE 69; RESP 18; TEMP 98; O2SAT 96
[2024-08-16 23:07] VITALS: PULSE 90; RESP 16; O2SAT 97
[2024-08-17] VITALS (7 sets, daily range): BP systolic 98–120; BP diastolic 52–68; PULSE 77–92; RESP 16–18; TEMP 97.3–99.7; O2SAT 93–95
--- NOTE | 2024-08-17 00:21 | DVHHP2 ---
Admitting Diagnosis: Chest pain rule out ACS, Dizziness History of Present Illness History Source: Patient Exam Limitations: No limitations HPI Mrs. Pastora Briones is an 79 yo female with a history of DVT, CHF, lumbar surgery, hypertension, GERD, Hypothyroidism, Pulmonary embolism who presents with a chief complaint of chest pain, headaches, dizziness. Patient reports midsternal chest pain radiating to her head, and back. Patient denies dyspnea, fevers, chills, nausea, vomiting. Home Meds Active Scripts Apixaban Base (ELIQUIS) 5 Mg Tab, 5 MG PO BID, #90 TAB Prov:ROBBIN REDDING MD 06/27/24 Naloxone HCl (Narcan) 4 Mg/0.1 Ml Spr, 4 MG NA Q5MINP PRN, #1 SPRAY Prov:ROBBIN REDDING MD 06/27/24 Oxycodone W/ Acetaminophen (Percocet 5/325MG) 1 Tab Tb, 1 TAB PO Q6HPRN PRN, #20 TAB Prov:ROBBIN REDDING MD 06/27/24 Senna (Senokot) 8.6 Mg Tab, 8.6 MG PO DAILY@DINNER, #20 TAB Prov:ROBBIN REDDING MD 06/27/24 Reported Medications Latanoprost (LATANOPROST) 0.005 % Tracy, 1 DROP EACHEYE QPM, #7.5 ML 3 Refills 06/16/24 Trazodone Hcl (Trazodone Hcl) 50 Mg Tab, 50 MG PO HS, MG 06/16/24 Pantoprazole Sodium Sesquihydr (Protonix) 40 Mg Tab, 40 MG PO DAILY, #30 TAB 06/16/24 Sertraline Hcl (Sertraline Hcl) 50 Mg Tab, 100 MG PO DAILY for 30 Days, MG 06/16/24 Gabapentin (Gabapentin) 300 Mg Cap, 300 MG PO TID for 30 Days, MG 06/16/24 Furosemide (Furosemide) 20 Mg Tab, 20 MG PO DAILY for 30 Days, MG 06/16/24 Levothyroxine Sodium (Levothyroxine Sodium) 75 Mcg Tab, 1 TAB PO DAILY, #30 TAB 5 Refills 06/16/24 Past Medical History Cardiac: CHF, HTN Pulmonary: No pertinent Hx Central Nervous System: No pertinent Hx GI: GERD Hemotology/Oncology: No pertinent Hx Hepatobiliary: No pertinent Hx Psychiatric: Anxiety Musculoskeletal: No pertinent Hx Rheumotologic: No pertinent Hx Infectious Disease: No peritnent Hx ENT: No pertinent Hx Renal/: No pertinent Hx Endocrine: Hypothyroidism Dermatology: No pertinent Hx Others DVT, PE Past Surgical History: Other (lumbar spinal surgery) Patient Family History: Patient reports no known family medical history. Smoker: No Hx (Negative) Alocohol: None Drugs: None Domestic Violence: Neg Review of Systems Constitutional: Other (headaches ) Ears, Nose, & Throat: No symptom reported Eyes: No symptom reported Pulmonary/Respiratory: No symptom reported Cardiovascular: Chest Pain Gastrointestinal: No symptom reported Genitourinary: No symptom reported Musculoskeletal: Back pain Skin: No symptom reported Psychiatric: No symptom reported Endocrine: No symptom reported Hemotologic/Lymphatic: No symptom reported H&P Exam Vital Signs Vital Signs Date Time Temp Pulse Resp B/P (MAP) Pulse Ox O2 Delivery O2 Flow Rate FiO2 08/16/24 23:07 90 16 97 Room Air* 0 21 08/16/24 22:00 101/61 (74) 08/16/24 19:30 99.0 99.0 General Appeara: Well developed, Well nourished, Normal Appearance Head Exam: Normal inspection Neck Exam: Normal inspection, Non-tender, Normal alignment Eye Exam: bilateral eye Normal inspection, bilateral eye PERRL, bilateral eye EOMI Ear Exam: bilateral ear Auricle normal, bilateral ear Canal normal Nasal Exam: Normal inspection Mouth: Normal Inspection Pulmonary/Respiratory: Normal inspection, Normal breath sounds, Chest non- tender, Lungs clear Cardiovascular/Chest: Normal inspection, Regular rate, Normal Rhythm Peripheral Pulses: 2+ dorsalis pedis (R), 2+ dorsalis pedis (L), 2+ Radial (R), 2+ Radial (L) Abdominal Exam: Normal bowel sounds, Soft, No tenderness Rectal Exam: Deferred Back Exam: Normal inspection Pelvic Exam: Not done Tendon/ Neuro: Normal sensation, Normal motor function, Normal tendon functions RIPRAP WORKER Exam: Normal hearing, Normal speech, PERRL Neuro/Mental St: Alert, Oriented Appearance: Appropriate appearance, Appropriate insight Eye contact/ Speech: Cooperative, Good eye contact, Normal speech Thoughts/Psych: Normal thought pattern Skin Exam: Normal inspection, Normal color, Warm/dry Labs/Xrays Labs Test 08/16/24 21:50 08/16/24 19:23 08/16/24 18:52 08/16/24 18:17 Range/Units Troponin I High Sensitivity 5 </=34 ng/L Triglycerides Level 305 H < 150 mg/dL Cholesterol Level 210 H < 200 mg/dL LDL Cholesterol 117 H < 100 mg/dL HDL Cholesterol 52 40-59 mg/dL Urine Color Colorless Yellow Urine Clarity Turbid H Clear Urine pH 7.5 5.0-9.0 Urine Specific [place] 1.012 1.001-1.035 Urine Protein Negative Negative Urine Ketones Negative Negative Urine Blood Negative Negative /uL Urine Nitrite Negative Negative Urine Bilirubin Negative Negative Urine Urobilinogen Normal Negative mg/dL Urine Leukocyte Esterase 3+ Negative /uL Urine RBC 1 0 - 4 /hpf Urine WBC 40 0 - 5 /hpf Urine Squamous Epithelial Cells Few <5 /hpf Urine Bacteria None seen None Seen /hpf Urine Glucose Normal Normal mg/dL White Blood Count 9.9 4.4-10.8 10^3/uL Red Blood Count 4.36 4.0-5.20 10^6/uL Hemoglobin 10.3 L 12.2-16.2 g/dL Hematocrit 32.7 L 36.0-46.0 % Mean Corpuscular Volume 75.0 L 80.0-100.0 fL Mean Corpuscular Hemoglobin 23.6 L 28.0-32.0 pg Mean Corpuscular Hemoglobin Concent 31.5 L 32.0-36.0 g/dL Red Cell Distribution Width 17.2 H 11.8-14.3 % Platelet Count 418 140-450 10^3/uL Mean Platelet Volume 8.0 6.9-10.8 fL Neutrophils (%) (Auto) 67.1 37.0-80.0 % Lymphocytes (%) (Auto) 25.1 10.0-50.0 % Monocytes (%) (Auto) 7.3 0.0-12.0 % Eosinophils (%) (Auto) 0.3 0.0-7.0 % Basophils (%) (Auto) 0.2 0.0-2.0 % Neutrophils # (Auto) 6.6 1.6-8.6 10 ^3/uL Lymphocytes # (Auto) 2.5 0.4-5.4 10 ^3/uL Monocytes # (Auto) 0.7 0-1.3 10 ^3/uL Eosinophils # (Auto) 0 0-0.8 10 ^3/uL Basophils # (Auto) 0 0-0.2 10 ^3/uL Nucleated Red Blood Cells 0.1 % Prothrombin Time 11.9 H 9.3-11.8 sec Prothrombin Time INR 1.14 0.9-1.15 Activated Partial Thromboplast Time 27.1 24.5-34.5 SEC D-Dimer, Quantitative 1.29 H 0.0-0.49 mg/L FEU Sodium Level 134 L 136-145 mmol/L Potassium Level 4.4 3.5-5.1 mmol/L Chloride Level 98 98-107 mmol/L Carbon Dioxide Level 27 20-31 mmol/L Anion Gap 9 5-15 Blood Urea Nitrogen 42 H 9-23 mg/dL Creatinine 1.66 H 0.550-1.02 mg/dL Glomerular Filtration Rate Calc 31 >90 mL/min BUN/Creatinine Ratio 25.3 H 10.0-20.0 Serum Glucose 130 H 74-106 mg/dL Calcium Level 12.0 H 8.7-10.4 mg/dL B-Type Natriuretic Peptide 31.10 0-100 pg/mL Assessment/Plan Problem List: (1) Acute chest pain (2) Dizziness (3) UTI (urinary tract infection) Plan This is an 79 yo female with known history of hypertension, CHF, Hypothyroidism, GERD, Anxiety, lumbar spine surgery, DVT/PE on Eliquis who presents with chest pain, headaches, and dizziness. Patient has a heart score of 6. 1. Chest pain rule out ACS 2. Dizziness 3. Urinary tract infection PLAN: Admit Telemetry unit Cardiology consultation, 2D echocardiogram, serial troponin levels, Statin, start Eliquis, Lipid panel MRI brain wo contrast IV antibiotic Ceftriaxone Urine culture Fall precautions Reconcile home medications as needed Discussed all above with patient who verbalizes agreement and understanding of care plan. All questions were answered. Discussed care plan with patient nurse Phyllis HERNANDEZ. Discussed assessment and care plan with supervising MD. Plan discussed with: Patient, Other Code Visit Code Visit Total Time (mins): 45 Additional Comments Additional Comments Additional Comments 79-year-old female with a known history of hypertension, previous history of DVT/PE, hypothyroidism when he stepped into the hospital with dizziness and chest pain found to have 1. Chest pain rule out [place] 2. 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 History of DVT or PE cardiac on Eliquis 4. Hypertension 5. Hypothyroidism 6. Morbid obesity class 2 7. Recent history of lumbar spine surgery -continue pain meds, follow-up MRI brain -physical therapy evaluation and treatment -discharge plan. ROSA HARRIS Aug 17, 2024 00:21 MARTIN VALDIVIA MD Aug 17, 2024 14:54
--- NOTE | 2024-08-17 02:18 | DVH ---
CLINICAL HISTORY: r/o dvt patient has a history of DVT and is currently on blood thinners TECHNIQUE: Color and duplex doppler imaging of the bilateral lower extremity veins was performed. Ves haydee compression if possible was also performed. WID: COMPARISON: US BILAT LOWER DVT on DOS: 07/04/24 FINDINGS: Right Lower Extremity: Right common femoral vein: Normal compressibility and flow. Right femoral vein: Normal compressibility and flow. Right popliteal vein: Normal compressibility and flow. Proximal calf veins are normally compressible. Left Lower Extremity: Left common femoral vein: Normal compressibility and flow. Left femoral vein: Normal compressibility and flow. Left popliteal vein: Normal compressibility and flow. Proximal calf veins are normally compressible. IMPRESSION: NO SONOGRAPHIC EVIDENCE FOR DEEP VENOUS THROMBOSIS IN THE BILATERAL LOWER EXTREMITY VEINS.
[2024-08-17 05:51] LABS: Basophils # (auto) 0.1 10 ^3/uL (0-0.2); Basophils % (auto) 0.9 % (0.0-2.0); Eosinophils # (auto) 0.1 10 ^3/uL (0-0.8); Eosinophils % (auto) 1.9 % (0.0-7.0); Hemoglobin 9.1 g/dL (12.2-16.2); Lymphocytes # (auto) 2.1 10 ^3/uL (0.4-5.4); Mean Corpuscular Hemoglobin 23.5 pg (28.0-32.0); Mean Corpuscular Hgb Conc. 31.6 g/dL (32.0-36.0); Mean Corpuscular Volume 74.4 fL (80.0-100.0); Monocytes # (auto) 0.9 10 ^3/uL (0-1.3); Monocytes % (auto) 12.3 % (0.0-12.0); Neutrophils # (auto) 4.1 10 ^3/uL (1.6-8.6); Neutrophils % (auto) 55.9 % (37.0-80.0); Nucleated Red Blood Cells % 0.1 %; Platelet Count (auto) 360 10^3/uL (140-450); Red Blood Cells 3.89 10^6/uL (4.0-5.20); Red Cell Distribution Width 17.4 % (11.8-14.3); White Blood Cell 7.2 10^3/uL (4.4-10.8)
[2024-08-17 06:00] LABS: Chloride 100 mmol/L (98-107); Potassium 3.9 mmol/L (3.5-5.1); Sodium 136 mmol/L (136-145)
[2024-08-17 06:01] LABS: Anion Gap 6 (5-15); Carbon Dioxide 30 mmol/L (20-31)
[2024-08-17 06:06] LABS: BUN/Creatinine Ratio 26.2 (10.0-20.0)
[2024-08-17] MEDS: GABAPENTIN 300 MG CAP PO SCH (06:12)
[2024-08-17] MEDS: OXYCODONE W/ ACETAMINOPHEN 5/325MG TABLET PO PRN (06:12)
[2024-08-17 06:16] LABS: Blood Urea Nitrogen 44 mg/dL (9-23); Calcium 11.1 mg/dL (8.7-10.4); Glucose 132 mg/dL (74-106)
[2024-08-17] MEDS: PANTOPRAZOLE 40 MG/10 ML VIAL INJ IV SCH (09:53)
[2024-08-17] MEDS: APIXABAN 5 MG TAB PO SCH (09:53)
[2024-08-17] MEDS: FUROSEMIDE 20 MG TAB PO SCH (09:54)
[2024-08-17] MEDS: SERTRALINE HCL 50 MG TAB PO SCH (09:54)
[2024-08-17] MEDS: PATIENTS OWN MEDICATION (Levothyroxine Sodium 1 TAB) PO SCH (09:57)
[2024-08-17] MEDS ORDERED: ASPirin-EC 81 mg tab PO SCH (10:00)
[2024-08-17] MEDS: LEVOTHYROXINE SODIUM 25 MCG TAB PO SCH (10:38)
[2024-08-17] MEDS: diazePAM 5 MG TAB PO ONE (10:38)
[2024-08-17] MEDS: cefTRIAXone 1GM/50ML D5W 50 ML IV SCH (10:39)
--- NOTE | 2024-08-17 12:30 | DVH ---
EXAM: MRI BRAIN HEAD WO CONTRAST HISTORY: dizziness COMPARISON: None TECHNIQUE: MRI was performed utilizing multiple appropriate imaging planes and pulse sequences. FINDINGS: SUPRATENTORIAL REGION: No evidence for acute ischemia or intracranial hemorrhage. Scattered ill-defi amanda FLAIR hyperintensities are noted within the bilateral periventricular region, worley radiata and subcortical white matter. POSTERIOR FOSSA: Unremarkable. BRAINSTEM: Unremarkable. SELLAR/SUPRASELLAR REGION: Unremarkable. VENTRICLES, CISTERNS, SULCI: Age-appropriate. ORBITS: Unremarkable. PARANASAL SINUSES: Mucous retention cyst noted in the bilateral maxillary sinuses and left sphenoid sinus. Mild ethmoid sinus mucosal thickening noted. No air-fluid level. MASTOID AIR CELLS: Unremarkable. VASCULATURE: Unremarkable. BONES/ SOFT TISSUES: Unremarkable. OTHER: None. IMPRESSION: 1. No acute intracranial process identified. 2. Moderate chronic microvascular ischemic changes. 3. Mild chronic paranasal sinus disease.
[2024-08-17] MEDS: SENNA 8.6 MG TAB PO SCH (17:55)
[2024-08-17] MEDS: LATANOPROST 0.005 % OPTH(EYE) SOL 2.5ML EACHEYE SCH (17:55)
[2024-08-17] MEDS: traZODone HCL 50 MG TAB PO SCH (22:16)
[2024-08-18] VITALS (8 sets, daily range): BP systolic 111–139; BP diastolic 60–77; PULSE 70–98; RESP 17–21; TEMP 97.8–98.7; O2SAT 94–100
[2024-08-18 05:44] LABS: Basophils # (auto) 0.1 10 ^3/uL (0-0.2); Eosinophils # (auto) 0.3 10 ^3/uL (0-0.8); Hemoglobin 9.7 g/dL (12.2-16.2); Mean Corpuscular Volume 75.4 fL (80.0-100.0)
[2024-08-18 05:46] LABS: Basophils % (auto) 0.9 % (0.0-2.0); Eosinophils % (auto) 4.2 % (0.0-7.0); Lymphocytes # (auto) 1.9 10 ^3/uL (0.4-5.4); Lymphocytes % (auto) 23.5 % (10.0-50.0); Mean Corpuscular Hemoglobin 23.7 pg (28.0-32.0); Mean Corpuscular Hgb Conc. 31.4 g/dL (32.0-36.0); Monocytes # (auto) 0.8 10 ^3/uL (0-1.3); Monocytes % (auto) 10.1 % (0.0-12.0); Neutrophils % (auto) 61.3 % (37.0-80.0); Nucleated Red Blood Cells % 0.2 %; Platelet Count (auto) 360 10^3/uL (140-450); Red Blood Cells 4.11 10^6/uL (4.0-5.20); Red Cell Distribution Width 16.9 % (11.8-14.3); White Blood Cell 8.2 10^3/uL (4.4-10.8)
[2024-08-18 05:50] LABS: Chloride 98 mmol/L (98-107); Potassium 3.5 mmol/L (3.5-5.1); Sodium 136 mmol/L (136-145)
[2024-08-18 05:51] LABS: Anion Gap 7 (5-15); Carbon Dioxide 31 mmol/L (20-31)
[2024-08-18 06:02] LABS: Blood Urea Nitrogen 40 mg/dL (9-23); Calcium 11.6 mg/dL (8.7-10.4); Glucose 158 mg/dL (74-106)
--- NOTE | 2024-08-18 09:51 | ECG ---
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
--- NOTE | 2024-08-18 16:41 | DVHPN2 ---
Subjective Overnight events noted. Patient was still complaining of dull headache and also complaining of chest pain please like in a band fashion across the chest. Reviewed: Care Plan Changes from previous H/P or p: No Changes Objective Vitals Vital Signs Date Time Temp Pulse Resp B/P (MAP) Pulse Ox O2 Delivery O2 Flow Rate FiO2 08/18/24 13:00 98.5 81 18 112/62 (79) 95 98.5 08/18/24 08:10 Room Air* 0 21 Intake/Output Intake and Output 08/18/24 07:00 Intake Total 1250 ml Output Total 1850 ml Balance -600 ml Intake Oral 1200 ml IV Total 50 ml Output Urine Total 1850 ml Medications Current Medications Medications Dose Ordered Sig/Nalini Route Start Time Stop Time Status Last Admin Dose Admin Nitroglycerin 0.4 mg Q5MINP PRN SL 08/16/24 21:30 Morphine Sulfate 2 mg Q30M PRN IV 08/16/24 21:30 Ondansetron HCl 4 mg Q6HPRN PRN IV 08/16/24 21:30 Atorvastatin Calcium 40 mg HS PO 08/16/24 22:00 08/17/24 22:16 40 MG Melatonin 5 mg ONCE@2200 PRN PO 08/16/24 21:30 Pantoprazole Sodium 40 mg DAILY IV 08/17/24 10:00 08/18/24 09:31 40 MG Acetaminophen 650 mg Q6HPRN PRN PO 08/16/24 21:30 Ceftriaxone Sodium 50 ml @ 100 mls/hr DAILY IV 08/17/24 10:00 08/18/24 09:32 100 MLS/HR Apixaban 5 mg BID PO 08/17/24 10:00 08/18/24 09:31 5 MG Furosemide 20 mg DAILY PO 08/17/24 10:00 08/18/24 09:32 20 MG Gabapentin 300 mg TID PO 08/17/24 06:00 08/18/24 13:59 300 MG Latanoprost 1 drop QPM EACHEYE 08/17/24 18:00 08/17/24 17:55 1 DROP Sennosides 8.6 mg DAILY@DINNER PO 08/17/24 17:30 08/17/24 17:55 8.6 MG Sertraline HCl 100 mg DAILY PO 08/17/24 10:00 08/18/24 09:31 100 MG Trazodone HCl 50 mg HS PO 08/17/24 22:00 08/17/24 22:16 50 MG Oxycodone/ Acetaminophen 1 tab Q6HPRN PRN PO 08/17/24 05:15 08/18/24 13:59 1 TAB Levothyroxine Sodium 75 mcg QAM@0600 PO 08/17/24 10:15 08/18/24 06:16 75 MCG Meclizine HCl 25 mg Q8HPRN PRN PO 08/18/24 15:00 Laboratory Results Laboratory Tests 08/18/24 05:05 Chemistry Test 08/18/24 05:05 Calcium Level 11.6 mg/dL (8.7-10.4) H Urinalysis Test 08/16/24 18:52 Urine Color Colorless (Yellow) Urine Clarity Turbid (Clear) H Urine pH 7.5 (5.0-9.0) Urine Specific [place] 1.012 (1.001-1.035) Urine Protein Negative (Negative) Urine Ketones Negative (Negative) Urine Blood Negative /uL (Negative) Urine Nitrite Negative (Negative) Urine Bilirubin Negative (Negative) Urine Urobilinogen Normal mg/dL (Negative) Urine Leukocyte Esterase 3+ /uL (Negative) Urine RBC 1 /hpf (0 - 4) Urine WBC 40 /hpf (0 - 5) Urine Squamous Epithelial Cells Few /hpf (<5) Urine Bacteria None seen /hpf (None Seen) Urine Glucose Normal mg/dL (Normal) Microbiology Microbiology Date/Time Source Procedure Growth Status 08/16/24 18:52 Voided Urine Urine Culture - Preliminary Resulted Assessment/Plan Assessment/Plan 79-year-old female with a known history of hypertension, previous history of DVT/PE, hypothyroidism when he stepped into the hospital with dizziness and chest pain found to have 1. Chest pain ruled out acute [place], likely atypical chest pain 2. Dizziness, MRI brain is negative 3. History of DVT / PE ,on Eliquis 4. Hypertension 5. Hypothyroidism 6. Morbid obesity class 2 7. Hypothyroidism -continue Eliquis, physical therapy evaluation and treatment, pain meds as needed -discharge plan in next 24-48 hours. Plan discussed with: Patient My Orders Orders - MARTIN VALDIVIA MD Procedure Category Date Status Time Meclizine Tablet PHA 08/18/24 In Process (Antivert Tablet) 15:00 Date of Service: Aug 18, 2024 Billing Provider: MARTIN VALDIVIA MD Common Visit Codes: NOT BILLABLE MARTIN VALDIVIA MD Aug 18, 2024 16:41
[2024-08-18] MEDS: MECLIZINE HCL 25 MG TAB PO PRN (17:33)
--- NOTE | 2024-08-18 17:51 | DVHINCON2 ---
DATE OF CONSULTATION: 08/18/2024 REFERRING PHYSICIAN: Dr. Tripp. CONSULTING PHYSICIAN: Dr. Adolfo Nobles. INDICATION: Chest pain. HISTORY OF PRESENT ILLNESS: The patient is an 79-year-old female with history of hypertension; COPD; DVT; pulmonary embolism, on anticoagulation; who was recently discharged from the hospital, now presented to the hospital with complaints of headache, generalized body weakness, and chest and back pain. The patient also gives a history of dizziness. Her troponin has been negative. The patient stated that she has been compliant with her home medication including Eliquis. The patient is still complaining of pain in the back of her head. PAST MEDICAL HISTORY: * Hypertension. * DVT. * Pulmonary embolism. * GERD. * Hypothyroidism. * Obesity. MEDICATIONS: Per med rec. ALLERGIES: No known drug allergies. PHYSICAL EXAMINATION: GENERAL: Alert and awake, in no form of cardiopulmonary distress. VITAL SIGNS: Blood pressure 112/60, pulse 77/minute, saturation 94%. HEENT: No carotid bruits. No jugular venous distention. CHEST: Bilateral air entry. CARDIOVASCULAR: Submucosal and palpable. Normal S1, S2. No appreciable murmur, gallop, rubs, or clicks. EXTREMITIES: No peripheral edema. DIAGNOSTIC DATA: Troponin negative x3. White count 8, hemoglobin 9.7, platelet is 360. Sodium 136, potassium 3.5, creatinine is 1.67. ASSESSMENT: * Chest pain, atypical. Myocardial infarction is ruled out. Serial negative troponin. * Dizziness. * History of generalized body weakness. * Recent history of deep vein thrombosis, complicated with pulmonary embolism, status post catheter-based thrombectomy. * Hypothyroidism. * Obesity. RECOMMENDATIONS: * Continue anticoagulation therapy with Eliquis. * Continue meclizine. * Monitor electrolytes closely. * Keep potassium above 4 and magnesium above 2. * We will review echo once completed. * Continue telemetry monitoring. Thank you for allowing me to participate in the care of this patient. MD JAIDA Lewis/OLIMPIA TID: [id number] RECEIPT: [id number]
[2024-08-19] VITALS (8 sets, daily range): BP systolic 100–133; BP diastolic 45–70; PULSE 67–83; RESP 16–18; TEMP 97.6–98.4; O2SAT 95–98
--- NOTE | 2024-08-19 11:53 | DVH ---
CLINICAL INFORMATION: 79 years old, Female; PULMONARY EMBOLISM. TECHNIQUE: 9.5 mCi of Xenon-133 gas was used for the ventilation portion of the exam. Posterior vent ilation imaging was obtained. 5.5 mCi of technetium 99m MAA was used for the perfusion portion of the exam. Imaging was obtained in multiple planes of projection. COMPARISON: Chest radiograph dated 08/16/2024. FINDINGS: Ill-defined diminished perfusion in the left perihilar region in a nonsegmental distributi on. No other perfusion defect visualized. Ventilation imaging shows no defects. There is normal washout. IMPRESSION: Low probability (less than 20% probability) of pulmonary embolism as described above.
--- NOTE | 2024-08-19 15:03 | DVHPN2 ---
Subjective Overnight events noted. Patient stated that she was feeling so sleepy, earlier CP Percocet as per bedside RN. Reviewed: Care Plan Changes from previous H/P or p: No Changes Objective Vitals Vital Signs Date Time Temp Pulse Resp B/P (MAP) Pulse Ox O2 Delivery O2 Flow Rate FiO2 08/19/24 11:20 130/54 08/19/24 09:00 97.6 67 18 95 97.6 08/18/24 20:00 Room Air* 0 21 Intake/Output Intake and Output 08/19/24 07:00 Intake Total 2350 ml Output Total 1700 ml Balance 650 ml Intake Oral 2300 ml IV Total 50 ml Output Urine Total 1700 ml # Bowel Movements 1 Exam HEENT pupils are reactive Neck is supple CV is S1-S2 regular rate and rhythm Respiratory viral clear GI posterior bowel sound Extremity no edema [employer] no motor deficit, patient was drowsy Medications Current Medications Medications Dose Ordered Sig/Nalini Route Start Time Stop Time Status Last Admin Dose Admin Nitroglycerin 0.4 mg Q5MINP PRN SL 08/16/24 21:30 Morphine Sulfate 2 mg Q30M PRN IV 08/16/24 21:30 Ondansetron HCl 4 mg Q6HPRN PRN IV 08/16/24 21:30 Atorvastatin Calcium 40 mg HS PO 08/16/24 22:00 08/18/24 21:03 40 MG Melatonin 5 mg ONCE@2200 PRN PO 08/16/24 21:30 Pantoprazole Sodium 40 mg DAILY IV 08/17/24 10:00 08/19/24 11:20 40 MG Acetaminophen 650 mg Q6HPRN PRN PO 08/16/24 21:30 Ceftriaxone Sodium 50 ml @ 100 mls/hr DAILY IV 08/17/24 10:00 08/19/24 11:20 100 MLS/HR Apixaban 5 mg BID PO 08/17/24 10:00 08/19/24 11:20 5 MG Furosemide 20 mg DAILY PO 08/17/24 10:00 08/19/24 11:20 20 MG Gabapentin 300 mg TID PO 08/17/24 06:00 08/19/24 05:08 300 MG Latanoprost 1 drop QPM EACHEYE 08/17/24 18:00 08/18/24 17:33 1 DROP Sennosides 8.6 mg DAILY@DINNER PO 08/17/24 17:30 08/18/24 17:28 8.6 MG Sertraline HCl 100 mg DAILY PO 08/17/24 10:00 08/19/24 11:20 100 MG Trazodone HCl 50 mg HS PO 08/17/24 22:00 08/18/24 21:03 50 MG Oxycodone/ Acetaminophen 1 tab Q6HPRN PRN PO 08/17/24 05:15 08/19/24 11:21 1 TAB Levothyroxine Sodium 75 mcg QAM@0600 PO 08/17/24 10:15 08/19/24 05:08 75 MCG Meclizine HCl 25 mg Q8HPRN PRN PO 08/18/24 15:00 08/19/24 05:08 25 MG Laboratory Results Laboratory Tests 08/18/24 05:05 Urinalysis Test 08/16/24 18:52 Urine Color Colorless (Yellow) Urine Clarity Turbid (Clear) H Urine pH 7.5 (5.0-9.0) Urine Specific [place] 1.012 (1.001-1.035) Urine Protein Negative (Negative) Urine Ketones Negative (Negative) Urine Blood Negative /uL (Negative) Urine Nitrite Negative (Negative) Urine Bilirubin Negative (Negative) Urine Urobilinogen Normal mg/dL (Negative) Urine Leukocyte Esterase 3+ /uL (Negative) Urine RBC 1 /hpf (0 - 4) Urine WBC 40 /hpf (0 - 5) Urine Squamous Epithelial Cells Few /hpf (<5) Urine Bacteria None seen /hpf (None Seen) Urine Glucose Normal mg/dL (Normal) Microbiology Microbiology Date/Time Source Procedure Growth Status 08/16/24 18:52 Voided Urine Urine Culture - Final Klebsiella pneumoniae Complete Assessment/Plan Assessment/Plan 79-year-old female with a known history of hypertension, previous history of DVT/PE, hypothyroidism when he stepped into the hospital with dizziness and chest pain found to have 1. Chest pain ruled out acute [place], likely atypical chest pain 2. Dizziness, MRI brain is negative 3. History of DVT / PE ,on Eliquis 4. Hypertension 5. Hypothyroidism 6. Morbid obesity class 2 7. Hypothyroidism 8. Acute delirium, could be because of Percocet/meclizine -discontinue meclizine, Percocet only p.r.n. if [id number] pain -continue Eliquis, physical therapy evaluation and treatment, pain meds as needed -discharge plan in next 24 hours. Plan discussed with: Patient, Other Date of Service: Aug 20, 2024 Billing Provider: MARTIN VALDIVIA MD Common Visit Codes: NOT BILLABLE MARTIN VALDIVIA MD Aug 19, 2024 15:03
[2024-08-20] VITALS (7 sets, daily range): BP systolic 108–133; BP diastolic 45–66; PULSE 61–80; RESP 15–18; TEMP 36.5; O2SAT 94–97
[2024-08-20] MEDS ORDERED: APIX5TAB PO (14:52)
--- NOTE | 2024-08-20 14:58 | DVHDS2 ---
Discharge Summary Date of Admission Aug 16, 2024 at 21:25 Date of Discharge: Aug 20, 2024 Labs/Diagnostic Data: Laboratory Results Test 08/18/24 05:05 08/17/24 13:17 08/16/24 19:23 08/16/24 18:52 White Blood Count 8.2 10^3/uL (4.4-10.8) Red Blood Count 4.11 10^6/uL (4.0-5.20) Hemoglobin 9.7 g/dL (12.2-16.2) Hematocrit 31.0 % (36.0-46.0) Mean Corpuscular Volume 75.4 fL (80.0-100.0) Mean Corpuscular Hemoglobin 23.7 pg (28.0-32.0) Mean Corpuscular Hemoglobin Concent 31.4 g/dL (32.0-36.0) Red Cell Distribution Width 16.9 % (11.8-14.3) Platelet Count 360 10^3/uL (140-450) Mean Platelet Volume 7.8 fL (6.9-10.8) Neutrophils (%) (Auto) 61.3 % (37.0-80.0) Lymphocytes (%) (Auto) 23.5 % (10.0-50.0) Monocytes (%) (Auto) 10.1 % (0.0-12.0) Eosinophils (%) (Auto) 4.2 % (0.0-7.0) Basophils (%) (Auto) 0.9 % (0.0-2.0) Neutrophils # (Auto) 5.0 10 ^3/uL (1.6-8.6) Lymphocytes # (Auto) 1.9 10 ^3/uL (0.4-5.4) Monocytes # (Auto) 0.8 10 ^3/uL (0-1.3) Eosinophils # (Auto) 0.3 10 ^3/uL (0-0.8) Basophils # (Auto) 0.1 10 ^3/uL (0-0.2) Nucleated Red Blood Cells 0.2 % Sodium Level 136 mmol/L (136-145) Potassium Level 3.5 mmol/L (3.5-5.1) Chloride Level 98 mmol/L (98-107) Carbon Dioxide Level 31 mmol/L (20-31) Anion Gap 7 (5-15) Blood Urea Nitrogen 40 mg/dL (9-23) Creatinine 1.67 mg/dL (0.550-1.02) Glomerular Filtration Rate Calc 31 mL/min (>90) BUN/Creatinine Ratio 24.0 (10.0-20.0) Serum Glucose 158 mg/dL (74-106) Calcium Level 11.6 mg/dL (8.7-10.4) Troponin I High Sensitivity 7 ng/L (</=34) Triglycerides Level 305 mg/dL (< 150) Cholesterol Level 210 mg/dL (< 200) LDL Cholesterol 117 mg/dL (< 100) HDL Cholesterol 52 mg/dL (40-59) Urine Color Colorless (Yellow) Urine Clarity Turbid (Clear) Urine pH 7.5 (5.0-9.0) Urine Specific [place] 1.012 (1.001-1.035) Urine Protein Negative (Negative) Urine Ketones Negative (Negative) Urine Blood Negative /uL (Negative) Urine Nitrite Negative (Negative) Urine Bilirubin Negative (Negative) Urine Urobilinogen Normal mg/dL (Negative) Urine Leukocyte Esterase 3+ /uL (Negative) Urine RBC 1 /hpf (0 - 4) Urine WBC 40 /hpf (0 - 5) Urine Squamous Epithelial Cells Few /hpf (<5) Urine Bacteria None seen /hpf (None Seen) Urine Glucose Normal mg/dL (Normal) Test 08/16/24 18:17 Prothrombin Time 11.9 sec (9.3-11.8) Prothrombin Time INR 1.14 (0.9-1.15) Activated Partial Thromboplast Time 27.1 SEC (24.5-34.5) D-Dimer, Quantitative 1.29 mg/L FEU (0.0-0.49) B-Type Natriuretic Peptide 31.10 pg/mL (0-100) Other Laboratory Tests 08/18/24 05:05 Brief Hx & Hospital Course: 79-year-old female with a known history of hypertension, previous history of DVT/PE, hypothyroidism who presented the hospital with dizziness and chest pain found to have atypical chest pain. Patient underwent MRI brain which was negative for any acute pathology. Patient was hospital course was eventful for drowsiness after meclizine which was discontinued. Patient was chronically physically deconditioned. Home health home safety home PT will be arranged. Patient was being discharged under stable condition with close follow up as an outpatient with the Neurology. Condition at Discharge: Stable Final Diagnosis/Problems List 79-year-old female with a known history of hypertension, previous history of DVT/PE, hypothyroidism when he stepped into the hospital with dizziness and chest pain found to have 1. Chest pain ruled out acute [place], likely atypical chest pain 2. Dizziness, MRI brain is negative 3. History of DVT / PE ,on Eliquis 4. Hypertension 5. Hypothyroidism 6. Morbid obesity class 2 7. Hypothyroidism 8. Acute delirium, could be because of Percocet/meclizine Discharge Disposition: Home with Health Services SNF Discharge Will this Physician continue t: No Discharge Instruct/Medications Diet: Cardiac 2g Na,low cholest Activity: No Restrictions, As Tolerated Follow Up/Referral: f/u with pcp in in 1-2 weeks Medications: resume meds Discharge Statement: "Patient was advised to return to the ER or call 911 if any headaches, dizziness, shortness of breath, chest pain, abdominal pain, bleeding, fevers, or worsening of medical condition. Patient was counseled about treatment plan, medications, possible side effects, patientverbalized understanding. All questions were answered to the best of my ability. This discharge took greater then 30 minutes in planning, reviewing documentation, counseling the patient, and discussing with other team members." ASSESSMENT ASSESSMENT Assessment 79-year-old female with a known history of hypertension, previous history of DVT/PE, hypothyroidism when he stepped into the hospital with dizziness and chest pain found to have 1. Chest pain ruled out acute [place], likely atypical chest pain 2. Dizziness, MRI brain is negative 3. History of DVT / PE ,on Eliquis 4. Hypertension 5. Hypothyroidism 6. Morbid obesity class 2 7. Hypothyroidism 8. Acute delirium, could be because of Percocet/meclizine Date of Service: Aug 20, 2024 Billing Provider: MARTIN VALDIVIA MD Common Visit Codes: NOT BILLABLE MARTIN VALDIVIA MD Aug 20, 2024 14:58
== END 2024-08-20 17:20 | disposition home health service (06) | DRG 690 ==
LOC: ER 17:46 → EDBD 17:46 → TELE 21:25 → TELE-EAST 22:43
PROVIDERS: ADMIT Nurse Practitioner Family; ATTEND Nurse Practitioner Family
DX: N30.00 Acute cystitis without hematuria (principal); Z68.41 Body mass index [BMI] 40.0-44.9, adult; R07.89 Other chest pain; I11.0 Hypertensive heart disease with heart failure; E03.9 Hypothyroidism, unspecified; E66.01 Morbid (severe) obesity due to excess calories; K21.9 Gastro-esophageal reflux disease without esophagitis; F41.9 Anxiety disorder, unspecified; J44.9 Chronic obstructive pulmonary disease, unspecified; I50.9 Heart failure, unspecified; E66.812 Obesity, class 2; Z86.711 Personal history of pulmonary embolism; Z86.718 Personal history of other venous thrombosis and embolism; Z79.899 Other long term (current) drug therapy
CPT/HCPCS: 36415; 70450; 70551; 71045; 78582; 80048; 80061; 81001; 83880; 84484; 85025; 85379; 85610; 85730; 87086; 87088; 87186; 93005; 93970; 97163; 99291; G0378; J2470

== ENCOUNTER 2025-06-08 06:55 | Inpatient (IN) | payer BC ==
[~2025-06-08] VITALS: Ht 162.6 cm; Wt 106.8 kg
[~2025-06-08 06:55] MED LIST changes: +FERR15DR PO; +HYDR50TA47 PO; +OLME20TA53 PO; -SERT-206 PO; -TRIA75TA10 PO
[2025-06-08] MEDS: ACETAMINOPHEN IV 100 ML IV ONE (07:45)
[2025-06-08] MEDS: ACETAMINOPHEN IV 1000 MG/100ML (10MG/ML) IV ONE (08:00)
[2025-06-08] MEDS ORDERED: NITROGLYCERIN 0.4 MG SL TAB SL PRN ×2 (11:45→16:00)
[2025-06-08] MEDS ORDERED: ceFAZolin 1GM/50ML 50 ML IV SCH (11:45)
[2025-06-08] MEDS ORDERED: ONDANSETRON HCL 4 MG/2 ML VIAL IV PRN ×4 (11:45→16:15)
[2025-06-08] MEDS ORDERED: HYDROmorphone HCL 2 MG/ML VL/or syr IV PRN ×3 (11:45→16:00)
[2025-06-08] MEDS: CELECOXIB 100 MG CAP PO ONE (12:29)
[2025-06-08] MEDS: PREGABALIN CAPSULE 75 MG CAP PO ONE (12:29)
[2025-06-08] MEDS: BUPIVACAINE 0.25% INJ 50ML VIAL ONE (12:34)
[2025-06-08] MEDS ORDERED: KETOROLAC TROMETH 30 MG/ML 1ML VIAL ONE (12:37)
[2025-06-08] MEDS ORDERED: MORPHINE SULF PF 5 MG/10 ML VIAL ONE ×2 (12:37→13:29)
[2025-06-08] MEDS ORDERED: MORPHINE SULFATE 4 MG/ML SYR/VIAL IV PRN ×2 (13:00→16:45)
[2025-06-08] MEDS: TETRACAINE 1% INJ 2 ML VIAL IJ ONE (13:25)
[2025-06-08] MEDS ORDERED: fentaNYL CITRATE 100 MCG/2 ML VL ONE (13:28)
[2025-06-08] MEDS ORDERED: MIDAZOLAM HCL 2MG/2ML 2ml VIAL (1mg/ml) ONE ×2 (13:29→14:15)
[2025-06-08] MEDS: ceFAZolin 2 GM/D5W50ml 50 ML IV ONE (14:00)
[2025-06-08] MEDS ORDERED: MIDAZOLAM HCL 2MG/2ML 2ml VIAL (1mg/ml) IV PRN (14:00)
[2025-06-08] MEDS: SODIUM CHLOR 0.9% PF (SALINE LOCK) 10ML VIAL/SYR IV SCH (14:00)
[2025-06-08] MEDS ORDERED: hydrALAZINE HCL 20 MG/ML VL IV PRN ×2 (14:00→16:00)
[2025-06-08] MEDS: CEFEPIME 1GM/50ML 50 ML IV ONE (14:00)
[2025-06-08] MEDS ORDERED: PROPOFOL 10 MG/ML 20 ML IV ONE (14:04)
[2025-06-08] MEDS ORDERED: KETAMINE 50mg/ML 1ml syringe ONE (14:24)
[2025-06-08] MEDS ORDERED: ONDANSETRON HCL 4 MG/2 ML VIAL ONE (14:58)
[2025-06-08] MEDS: TRANEXAMIC ACID 20 ML ONE (15:00)
[2025-06-08] MEDS: VANCOMYCIN HCL 1000 MG VL ONE (15:00)
--- NOTE | 2025-06-08 15:11 | DVHOP2 ---
Operative Report - 2 Report Details Date: 06/08/25 Preop Diagnosis: End-stage degenerative joint disease, Right Hip Postop Diagnosis: Same Surgeon: Bertrand Britt MD Anesthesiologist: See Record Anesthesia: Regional Consent: The patient was informed of the risks and benefits of the procedure. These include but are not limited to complications of anesthesia, postoperative infection, incomplete relief of symptoms, recurrence of symptoms, damage to blood vessels, nerves and tendons, deep venous thrombosis, pulmonary embolism and possible need for repeat surgery in the future. Estimated Blood Loss: 200ml Name of Procedure Performed Right Total Hip Arthroplasty Procedure Details Procedure Details: The patient was positioned in the lateral decubitus position with appropriate padding to the axilla, pelvis, and lower extremities. The nonoperative leg was fitted with a compression stocking and sequential compression device. The operative site was prepped and draped in the standard sterile fashion. The orthopedic team utilized body exhaust suits. A posterior approach was utilized. A skin incision was made posterior to the greater trochanter. Dissection was carried through subcutaneous tissue, and the fascia of the gluteus eleno was split in line with its fibers. The short external rotators were identified and released, and the hip was dislocated posteriorly. The femoral neck osteotomy was performed, and the femoral head was removed. Attention was then directed to the acetabulum. Acetabular retractors were placed for exposure. The labrum and pulvinar were excised. Sequential reaming was performed to 52 mm. The definitive Zach G7 52 mm acetabular cup was implanted and secured with 2 screws. A dual mobility liner was inserted and tested for stability. The femur was then prepared. The canal was sequentially reamed and broached. The Zach Z1 size 5 high offset femoral component was selected and implanted. The trunnion was cleaned and dried, and the dual mobility head was impacted. The hip was reduced and stability confirmed. The wound was irrigated with pulsatile lavage. Local anesthetic cocktail was injected into the soft tissues. The capsule and short external rotators were repaired with #5 FiberWire. The fascia was closed with #1 absorbable suture, and the subcutaneous tissue with 2-0 absorbable suture. Skin was closed with darrell. A sterile dressing was applied, and an abduction pillow was placed. The patient was transferred to the recovery room in stable condition. Condition Fair Disposition Home BERTRAND BRITT DO Jun 08, 2025 15:11
[2025-06-08 15:36] VITALS: PULSE 85; RESP 11; O2SAT 99
[2025-06-08 15:46] VITALS: PULSE 70; RESP 12; O2SAT 99
[2025-06-08] MEDS ORDERED: FLUMAZENIL 0.1 MG/ML INJ 10ML MDV IV PRN (16:00)
[2025-06-08] MEDS ORDERED: fentaNYL CITRATE 100 MCG/2 ML VL IV PRN (16:00)
[2025-06-08] MEDS ORDERED: NALOXONE HCL 0.4 MG/ML VIAL IV PRN ×2 (16:00→16:15)
[2025-06-08] MEDS: HYDROmorphone HCL 2 MG/ML VL/or syr IV PRN (16:15)
[2025-06-08] MEDS ORDERED: diphenhydrAMINE HCL 50 MG/1 ML VL IV PRN (16:15)
[2025-06-08] MEDS: ACETAMINOPHEN IV 1000 MG/100ML (10MG/ML) IV SCH (16:42)
[2025-06-08] MEDS: GABAPENTIN 300 MG CAP PO SCH (17:03)
--- NOTE | 2025-06-08 17:21 | DVH ---
CLINICAL INDICATION: Right DYLAN TECHNIQUE: 1 radiographic views of the pelvis were obtained. Comparison: None FINDINGS/IMPRESSION: Pedicle screws and rods in the lower lumbar spine. Total right hip prosthesis in place.
[2025-06-08] MEDS: SENNA 8.6 MG TAB PO SCH (17:30)
[2025-06-08 18:24] LABS: Blood Urea Nitrogen 17.0 mg/dL (9-23)
[2025-06-08 20:25] VITALS: PULSE 86; RESP 18; O2SAT 97
[2025-06-08 21:00] VITALS: BP 133/59; PULSE 86; RESP 18; O2SAT 97
[2025-06-08] MEDS: LACTATED RINGER'S 1,000 ML IV SCH (21:45)
[2025-06-08] MEDS: ceFAZolin 1GM/50ML 50 ML IV SCH (22:25)
[2025-06-08] MEDS: LATANOPROST 0.005 % OPTH(EYE) SOL 2.5ML EACHEYE SCH (22:30)
[2025-06-08] MEDS: DOCUSATE SOD 100 MG CAP PO SCH (22:31)
[2025-06-08] MEDS: PANTOPRAZOLE 40 MG TAB PO SCH (22:31)
[2025-06-09] VITALS (27 sets, daily range): BP systolic 92–120; BP diastolic 35–73; PULSE 58–84; RESP 16–18; TEMP 97.7–98.1; O2SAT 96–99
[2025-06-09 06:14] LABS: Hematocrit 32.9 % (36.0-46.0); Hemoglobin 10.7 g/dL (12.2-16.2)
[2025-06-09] MEDS: LEVOTHYROXINE SODIUM 25 MCG TAB PO SCH (06:20)
[2025-06-09 06:42] LABS: Albumin 3.5 g/dL (3.2-4.8); Alkaline Phosphatase 59 U/L (46-116); Anion Gap 10 (5-15); BUN/Creatinine Ratio 18.4 (10.0-20.0); Blood Urea Nitrogen 19 mg/dL (9-23); Calcium 10.2 mg/dL (8.7-10.4); Carbon Dioxide 28 mmol/L (20-31); Chloride 105 mmol/L (98-107); Potassium 4.3 mmol/L (3.5-5.1); Sodium 143 mmol/L (136-145); Total Protein 6.3 g/dL (5.7-8.2)
[2025-06-09 06:44] LABS: Alanine Aminotransferase < 9 U/L (7-40); Bilirubin, Total 0.2 mg/dL (0.2-1.0); Glucose 178 mg/dL (74-106)
--- NOTE | 2025-06-09 08:05 | DVHPN2 ---
Progress Note Date Seen: Jun 09, 2025 Medical Necessity Reason Pt with a Central, PICC or Fol: No Subjective Patient reports: No new complaints Objective vital signs Vital Sign Date Time Temp Pulse Resp B/P (MAP) Pulse Ox O2 Delivery O2 Flow Rate FiO2 06/09/25 06:43 58 16 06/09/25 05:00 120/51 (74) 98 06/08/25 20:25 Room Air* 0 21 06/08/25 15:36 97.2 97.2 Total Intake and Output 06/08/25 06/08/25 06/09/25 15:00 23:00 07:00 Intake Total 220 ml 50 ml 1150 ml Output Total 200 ml 200 ml Balance 220 ml -150 ml 950 ml medications Current Medications Medications Dose Ordered Sig/Nalini Route Start Time Stop Time Status Last Admin Dose Admin Furosemide 20 mg DAILY PO 06/09/25 10:00 Gabapentin 300 mg TID PO 06/08/25 14:00 06/09/25 06:20 300 MG Latanoprost 1 drop QPM EACHEYE 06/08/25 18:00 06/08/25 22:30 1 DROP Pantoprazole Sodium 40 mg BID PO 06/08/25 22:00 06/08/25 22:31 40 MG Sennosides 8.6 mg DAILY@DINNER PO 06/08/25 17:30 Trazodone HCl 50 mg HS PO 06/08/25 22:00 06/08/25 22:31 50 MG Patient Own Medication 1 tab DAILY PO 06/09/25 10:00 UNV Patient Own Medication 4 mg Q5MINP PRN NA 06/08/25 11:45 Lactated Ringer's 1,000 ml @ 100 mls/hr Q10H IV 06/08/25 11:45 06/09/25 06:57 100 MLS/HR Sodium Chloride 10 ml Q8HR IV 06/08/25 14:00 06/09/25 06:13 10 ML Oxycodone/ Acetaminophen 1 tab Q4HP PRN PO 06/08/25 11:45 Hydromorphone HCl 1 mg Q2HP PRN IV 06/08/25 11:45 Docusate Sodium 100 mg Q12HR PO 06/08/25 22:00 06/08/25 22:31 100 MG Enoxaparin Sodium 40 mg DAILY SC 06/09/25 10:00 Morphine Sulfate 2 mg Q30M PRN IV 06/08/25 13:00 Levothyroxine Sodium 75 mcg QAM@0600 PO 06/09/25 06:00 06/09/25 06:20 75 MCG Naloxone HCl 0.4 mg Q10M PRN IV 06/08/25 16:00 06/08/25 16:21 UNV Oxycodone HCl 10 mg ONCE PRN PO 06/08/25 16:00 Nitroglycerin 0.4 mg Q5MINP PRN SL 06/08/25 16:00 Morphine Sulfate 2 mg Q30M PRN IV 06/08/25 16:45 Acetaminophen 1,000 mg Q8HR IV 06/08/25 16:15 06/09/25 16:15 06/09/25 06:13 1,000 MG Diphenhydramine HCl 12.5 mg Q4HP PRN IV 06/08/25 16:15 Ondansetron HCl 4 mg Q4HP PRN IV 06/08/25 16:15 Dexamethasone Sodium Phosphate 10 mg ONCE PRN IV 06/08/25 16:15 Examination: GENERAL:Normal, MSK:Abnormal laboratory and microbiology Laboratory Tests 06/09/25 04:50 Test 06/09/25 04:50 Range/Units Serum Glucose 178 H 74-106 mg/dL Problem List/Assessment/Plan Problem List/Assessment/Plan 80 year old female who is s/p right DYLAN POD 1 1. pain control 2. DVT ppx 3. WBAT RLE with use of walker 4. Physical therapy 5. d/c planning for home tomorrow Plan discussed with: Patient Date of Service: Jun 09, 2025 Billing Provider: SHAILA MCCABE MD Common Visit Codes: NOT BILLABLE MARIIA ACEVEDO NP Jun 09, 2025 08:05
[2025-06-09] MEDS ORDERED: PATIENTS OWN MEDICATION (Levothyroxine Sodium 1 TAB) PO SCH (10:00)
[2025-06-09] MEDS: FUROSEMIDE 20 MG TAB PO SCH (10:48)
[2025-06-09] MEDS: ENOXAPARIN SOD 40 MG/0.4 ML SYRINGE SC SCH (10:49)
[2025-06-09] MEDS: ACETAMINOPHEN 325 MG TAB PO PRN (16:10)
--- NOTE | 2025-06-09 17:55 | DVHINCON2 ---
Date Seen: Jun 09, 2025 Referring Physician Orthopedics. Reason for Consultation Medical management. History of Present Illness 80-year-old female who is here status post right hip surgery for degenerative joint disease of the right hip. 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 Past Medical History Hypertension Hypothyroidism Peripheral neuropathy History of DVT and PE Past Surgical History L3-4 five lumbar spine surgery Right hip surgery. Family History: Asthma G8 MOTHER Allergies: Coded Allergies: NO KNOWN ALLERGIES (Unverified , 06/15/24) Home Meds Active Scripts Apixaban Base (ELIQUIS) 5 Mg Tab, 5 MG PO BID, #120 TAB Prov:MARTIN VALDIVIA MD 08/20/24 Naloxone HCl (Narcan) 4 Mg/0.1 Ml Spr, 4 MG NA Q5MINP PRN, #1 SPRAY Prov:ROBBIN REDDING MD 06/27/24 Senna (Senokot) 8.6 Mg Tab, 8.6 MG PO DAILY@DINNER, #20 TAB Prov:ROBBIN REDDING MD 06/27/24 Reported Medications Olmesartan Medoxomil (Benicar) 20 Mg Tab, PO, TAB 06/04/25 Ferrous Sulfate (Shaheen-In-Tracy) 15 Mg/Ml Daljit, PO, DROP 06/04/25 Hydralazine Hcl (Hydralazine Hcl) 50 Mg Tab, PO TID, #270 TAB 3 Refills 06/04/25 Oxycodone W/ Acetaminophen (Percocet 5/325MG) 1 Tab Tb, 1 TAB PO TID for 30 Days, #90 08/20/24 Latanoprost (LATANOPROST) 0.005 % Tracy, 1 DROP EACHEYE QPM, #7.5 ML 3 Refills 06/16/24 Trazodone Hcl (Trazodone Hcl) 50 Mg Tab, 50 MG PO HS, MG 06/16/24 Pantoprazole Sodium Sesquihydr (Protonix) 40 Mg Tab, 1 TAB PO BID for 90 Days, #180 06/16/24 Gabapentin (Gabapentin) 300 Mg Cap, 300 MG PO TID for 30 Days, MG 06/16/24 Furosemide (Furosemide) 20 Mg Tab, 20 MG PO DAILY for 30 Days, MG 06/16/24 Levothyroxine Sodium (Levothyroxine Sodium) 75 Mcg Tab, 1 TAB PO DAILY, #30 TAB 5 Refills 06/16/24 Discontinued Reported Medications Furosemide (Lasix) 20 Mg Tb, GT, TAB 06/04/25 Current Medications Current Medications Medications (Trade) Dose Ordered Sig/Nalini Route PRN Reason Start Time Stop Time Status Last Admin Furosemide (Lasix Tablet) 20 mg DAILY PO 06/09/25 10:00 06/09/25 10:48 Latanoprost (Xalatan) 1 drop QPM EACHEYE 06/08/25 18:00 06/08/25 22:30 Pantoprazole Sodium (Protonix Tablet) 40 mg BID PO 06/08/25 22:00 06/09/25 10:49 Trazodone HCl (Desyrel) 50 mg HS PO 06/08/25 22:00 06/08/25 22:31 Patient Own Medication 1 tab DAILY PO 06/09/25 10:00 UNV Docusate Sodium (Colace Capsule) 100 mg Q12HR PO 06/08/25 22:00 06/09/25 10:48 Enoxaparin Sodium (Lovenox) 40 mg DAILY SC 06/09/25 10:00 06/09/25 10:49 Levothyroxine Sodium (Synthroid Tablet) 75 mcg QAM@0600 PO 06/09/25 06:00 06/09/25 06:20 Acetaminophen (Tylenol Tablet) 650 mg Q6HP PRN PO MILD PAIN (1-3 PAIN SCALE) 06/09/25 15:30 06/09/25 16:10 Review of Systems Twelve review of system are negative besides mentioned above. 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 Labs/Diagnostic Data Labs Test 06/09/25 04:50 Range/Units Hemoglobin 10.7 L 12.2-16.2 g/dL Hematocrit 32.9 L 36.0-46.0 % Sodium Level 143 136-145 mmol/L Potassium Level 4.3 3.5-5.1 mmol/L Chloride Level 105 98-107 mmol/L Carbon Dioxide Level 28 20-31 mmol/L Anion Gap 10 5-15 Blood Urea Nitrogen 19 9-23 mg/dL Creatinine 1.03 H 0.550-1.02 mg/dL Glomerular Filtration Rate Calc 55 >90 mL/min BUN/Creatinine Ratio 18.4 10.0-20.0 Serum Glucose 178 H 74-106 mg/dL Calcium Level 10.2 8.7-10.4 mg/dL Total Bilirubin 0.2 0.2-1.0 mg/dL Aspartate Amino Transferase (AST) 27 13-40 U/L Alanine Aminotransferase (ALT) < 9 7-40 U/L Alkaline Phosphatase 59 46-116 U/L Total Protein 6.3 5.7-8.2 g/dL Albumin 3.5 3.2-4.8 g/dL Assessment 80-year-old female with a known history of lumbar spine surgery in the past, 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 1. History of DVT and PE resume Eliquis 2. Hypertension 3. Hypothyroidism 4. Peripheral neuropathy 5. Status post right total hip arthroplasty for degenerative joint disease of the right hip postop day one 6. Previous history of lumbar spine surgery -resume Eliquis, DVT GI prophylaxis, pain meds as needed, physical therapy evalu ation and treatment. Plan discussed with: Patient Date of Service: Jun 09, 2025 Billing Provider: MARTIN VALDIVIA MD Common Visit Codes: NOT BILLABLE MARTIN VALDIVIA MD Jun 09, 2025 17:55
[2025-06-09] MEDS: APIXABAN 5 MG TAB PO SCH (18:00)
[2025-06-10] VITALS (9 sets, daily range): BP systolic 102–117; BP diastolic 40–59; PULSE 61–81; RESP 16–20; TEMP 98–99.1; O2SAT 70–97
[2025-06-10 06:36] LABS: Hematocrit 26.6 % (36.0-46.0); Hemoglobin 8.9 g/dL (12.2-16.2)
--- NOTE | 2025-06-10 07:41 | DVHPN2 ---
Progress Note Date Seen: Jun 10, 2025 Medical Necessity Reason Pt with a Central, PICC or Fol: No Subjective Patient reports: No new complaints Objective vital signs Vital Sign Date Time Temp Pulse Resp B/P (MAP) Pulse Ox O2 Delivery O2 Flow Rate FiO2 06/10/25 05:00 98.0 81 17 114/59 (77) 97 98.0 06/09/25 20:00 Room Air* 0 21 Total Intake and Output 06/09/25 06/09/25 06/10/25 15:00 23:00 07:00 Intake Total 720 ml 1300 ml Output Total 850 ml 1300 ml Balance -130 ml 0 ml medications Current Medications Medications Dose Ordered Sig/Nalini Route Start Time Stop Time Status Last Admin Dose Admin Furosemide 20 mg DAILY PO 06/09/25 10:00 06/09/25 10:48 20 MG Gabapentin 300 mg TID PO 06/08/25 14:00 06/10/25 06:07 300 MG Latanoprost 1 drop QPM EACHEYE 06/08/25 18:00 06/09/25 18:00 1 DROP Pantoprazole Sodium 40 mg BID PO 06/08/25 22:00 06/09/25 21:44 40 MG Sennosides 8.6 mg DAILY@DINNER PO 06/08/25 17:30 06/09/25 17:30 8.6 MG Trazodone HCl 50 mg HS PO 06/08/25 22:00 06/09/25 21:44 50 MG Patient Own Medication 1 tab DAILY PO 06/09/25 10:00 UNV Patient Own Medication 4 mg Q5MINP PRN NA 06/08/25 11:45 Lactated Ringer's 1,000 ml @ 100 mls/hr Q10H IV 06/08/25 11:45 06/10/25 02:15 100 MLS/HR Sodium Chloride 10 ml Q8HR IV 06/08/25 14:00 06/10/25 06:09 10 ML Oxycodone/ Acetaminophen 1 tab Q4HP PRN PO 06/08/25 11:45 Hydromorphone HCl 1 mg Q2HP PRN IV 06/08/25 11:45 Docusate Sodium 100 mg Q12HR PO 06/08/25 22:00 06/09/25 21:44 100 MG Morphine Sulfate 2 mg Q30M PRN IV 06/08/25 13:00 Levothyroxine Sodium 75 mcg QAM@0600 PO 06/09/25 06:00 06/10/25 06:08 75 MCG Naloxone HCl 0.4 mg Q10M PRN IV 06/08/25 16:00 06/08/25 16:21 UNV Oxycodone HCl 10 mg ONCE PRN PO 06/08/25 16:00 Nitroglycerin 0.4 mg Q5MINP PRN SL 06/08/25 16:00 Morphine Sulfate 2 mg Q30M PRN IV 06/08/25 16:45 Diphenhydramine HCl 12.5 mg Q4HP PRN IV 06/08/25 16:15 Ondansetron HCl 4 mg Q4HP PRN IV 06/08/25 16:15 Dexamethasone Sodium Phosphate 10 mg ONCE PRN IV 06/08/25 16:15 Acetaminophen 650 mg Q6HP PRN PO 06/09/25 15:30 06/09/25 16:10 650 MG Apixaban 5 mg BIDWM PO 06/09/25 18:00 06/09/25 18:00 5 MG Examination: GENERAL:Normal, MSK:Abnormal laboratory and microbiology Laboratory Tests 06/10/25 04:34 06/09/25 04:50 Test 06/09/25 04:50 Range/Units Serum Glucose 178 H 74-106 mg/dL Problem List/Assessment/Plan Problem List/Assessment/Plan 80 year old female who is s/p right DYLAN POD 2 1. pain control 2. DVT ppx 3. WBAT RLE with use of walker 4. Physical therapy 5. Recommending SNF for discharge as patient reports she does not have anyone at home to help her , only has a neighbor that may be able to assist with some meals 6. aquacel to remain intact for 2 weeks 7. patient has scheduled follow up on 06/23/2025 at 2:15 8. prescriptions for colace and keflex sent to [facility] on 06[facility]04. Patient to continue with pain management for postop pain control and to resume eliquis for DVT ppx 9. d/c planning for SNF, requesting [facility] Plan discussed with: Patient Date of Service: Jun 10, 2025 Billing Provider: SHAILA MCCABE MD Common Visit Codes: NOT BILLABLE MARIIA ACEVEDO NP Jun 10, 2025 07:41
--- NOTE | 2025-06-10 07:43 | DVHDS2 ---
Discharge Summary Date of Admission Jun 08, 2025 at 15:56 Date of Discharge: Jun 10, 2025 Admitting Diagnosis right total hip arthroplasty Wounds: If the wound is draining please change the gauze pad on the wound until it stops. If drainage persists past 10 days please notify our office. If there is a sticky gel dressing over your wound, you may leave this in place for as long as it is clean and dry. If it becomes loose or causes skin irritation, it is OK to remove it and place clean gauze over your wound. 1. You might notice some bruising around the surgical site, this is normal. 2. Check your temperature on a daily basis. Please note that a low-grade temp below 101 is not uncommon after surgery especially during the first 3 days. Notify the office if your temperature spikes above 101.5 after the 3rd post- operative date. 3. Many patients experience significant swelling in the thigh, this may extend below the knee and sometimes to the ankle. Swelling increases during the first week and subsides during the following week. 4. Provided you have been on a blood thinner since surgery and have been up and about at least three times per day, the risk of a blood clot is low and this swelling is an expected part of recovery. It will largely or completely resolve by your first post-operative visit. 5. Jose M, if present, will be removed at 2 weeks during initial post-op visit. Labs/Diagnostic Data: Laboratory Results Test 06/10/25 04:34 06/09/25 04:50 Hemoglobin 8.9 g/dL (12.2-16.2) Hematocrit 26.6 % (36.0-46.0) Sodium Level 143 mmol/L (136-145) Potassium Level 4.3 mmol/L (3.5-5.1) Chloride Level 105 mmol/L (98-107) Carbon Dioxide Level 28 mmol/L (20-31) Anion Gap 10 (5-15) Blood Urea Nitrogen 19 mg/dL (9-23) Creatinine 1.03 mg/dL (0.550-1.02) Glomerular Filtration Rate Calc 55 mL/min (>90) BUN/Creatinine Ratio 18.4 (10.0-20.0) Serum Glucose 178 mg/dL (74-106) Calcium Level 10.2 mg/dL (8.7-10.4) Total Bilirubin 0.2 mg/dL (0.2-1.0) Aspartate Amino Transferase (AST) 27 U/L (13-40) Alanine Aminotransferase (ALT) < 9 U/L (7-40) Alkaline Phosphatase 59 U/L (46-116) Total Protein 6.3 g/dL (5.7-8.2) Albumin 3.5 g/dL (3.2-4.8) Other Laboratory Tests 06/10/25 04:34 06/09/25 04:50 Brief Hx & Hospital Course: s/p right total hip arthroplasty Condition at Discharge: Fair Final Diagnosis/Problems List Same Discharge Disposition: Longterm Facility Discharge Instruct/Medications Diet: Regular Diet comment: may advance diet as tolerated, drink plenty of fluids Activity: See Comment Activity comment: 1.You can bear as much weight as you tolerate on your hip unless specifically instructed otherwise. You may use the walking aid which you were discharged with and switch to a cane whenever you feel comfortable doing so. You should use an assistive device until you can walk comfortably without it. Keep in mind that every patient moves at their own speed of recovery so take your time. 2.A physical therapist will visit you at home. 3. Although guarantees against a dislocation do not exist, the hip was noted to be sufficiently stable in surgery. Below are motions that you should dischargenot do for 4-6 weeks, depending on the surgical approach used. If there are questions, please call the office. a.Bend forward past 90 degrees b.Sit on a regular low chair, couch, car seat etc... c.Cross your legs d.Use a regular low toilet seat. e.Sleep on your stomach or on either side. 3.High impact activity such as jumping, aerobics, tennis, and skiing are not permitted during the first 3 months after surgery. These activities can contribute to accelerated wear and should be done with caution after this time. Discuss this with your surgeon if you have questions. 4.Although a bath or whirlpool is NOT permitted during the first 2-3 weeks, you may shower as soon as you get home from the hospital provided you are able to keep your bandage clean and dry and there is no wound drainage. If you are unable to place a secured covering over your bandage bed bath/sponge bath may likely be the more appropriate option. 5.Swimming is not permitted until the wound is healed, which typically occurs approximately 3-4 weeks after surgery. Follow Up/Referral: 1.Driving is not permitted within the first 2 weeks. 2.Your first postoperative visit will take place 2weeks after discharge. Please call the office to arrange this appointment. 3.Antibiotic preventative treatment is required before dental or other invasive procedures. Please ask your surgeon about this at your first postoperative visit. Your hip replacement contains metal which may activate metal detectors. You may wish to carry a letter from your surgeon to communicate this to security personnel. If you experience chest pain, shortness of breath or severe painful calf swelling, go to the nearest emergency room to be evaluated. Please call our office once your situation is stabilized. Medications: 1.You will be discharged with pain medication, Aspirin as a blood thinner and sometimes an anti-inflammatory medication such as Celebrex or Mobic might be prescribed. Please follow the instructions regarding these medicines as provided by your nurse at the hospital. 2.Narcotic pain medication has side effects, including constipation. Please ensure you continue to take stool softeners (Colace, Senna) while taking your pain medication to help protect against constipation. Getting up and moving around at least a few times per day helps with this also. 3.Lovenox 40 Sq x 12 days followed by one regular strength 325 mg coated aspirin daily for 4 weeks after surgery. Then, take one baby aspirin, 81 mg daily for 6 weeks more. A major, yet preventable, complication of Orthopaedic Surgery is a blood clot (DVT). It is important not to miss any doses of this important medication. 4.You should restart all of your prescription medications once discharged unless specifically instructed otherwise. 5.Herbal supplements may be restarted 2 weeks after surgery. Scheduled Apixaban Base (Eliquis), 5 MG PO BID Furosemide (Furosemide), 20 MG PO DAILY, (Reported) Gabapentin (Gabapentin), 300 MG PO TID, (Reported) Hydralazine Hcl (Hydralazine Hcl), Unknown Dose PO TID, (Reported) Latanoprost (Latanoprost), 1 DROP EACHEYE QPM, (Reported) Levothyroxine Sodium (Levothyroxine Sodium), 1 TAB PO DAILY, (Reported) Oxycodone W/ Acetaminophen (Percocet 5/325MG), 1 TAB PO TID, (Reported) Pantoprazole Sodium Sesquihydr (Protonix), 1 TAB PO BID, (Reported) Senna (Senokot), 8.6 MG PO DAILY@DINNER Trazodone Hcl (Trazodone Hcl), 50 MG PO HS, (Reported) Scheduled PRN Naloxone HCl (Narcan), 4 MG NA Q5MINP PRN Miscellaneous Medications Ferrous Sulfate (Shaheen-In-Tracy), Unknown Dose PO, (Reported) Olmesartan Medoxomil (Benicar), Unknown Dose PO, (Reported) Discontinued Medications Furosemide (Lasix), Unknown Dose GT, (Reported) Discharge Statement: "Patient was advised to return to the ER or call 911 if any headaches, dizziness, shortness of breath, chest pain, abdominal pain, bleeding, fevers, or worsening of medical condition. Patient was counseled about treatment plan, medications, possible side effects, patientverbalized understanding. All questions were answered to the best of my ability. This discharge took greater then 30 minutes in planning, reviewing documentation, counseling the patient, and discussing with other team members." ASSESSMENT ASSESSMENT Assessment Same MARIIA ACEVEDO NP Jun 10, 2025 07:43
[2025-06-10] MEDS: OXYCODONE W/ ACETAMINOPHEN 5/325MG TABLET PO PRN (08:45)
--- NOTE | 2025-06-10 14:19 | DVHPN2 ---
Subjective Patient is complaining of lightheadedness dizziness. Systolic blood pressures more than 90. 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 Medications Current Medications Medications Dose Ordered Sig/Nalini Route Start Time Stop Time Status Last Admin Dose Admin Furosemide 20 mg DAILY PO 06/09/25 10:00 06/10/25 08:48 20 MG Gabapentin 300 mg TID PO 06/08/25 14:00 06/10/25 06:07 300 MG Latanoprost 1 drop QPM EACHEYE 06/08/25 18:00 06/09/25 18:00 1 DROP Pantoprazole Sodium 40 mg BID PO 06/08/25 22:00 06/10/25 08:46 40 MG Sennosides 8.6 mg DAILY@DINNER PO 06/08/25 17:30 06/09/25 17:30 8.6 MG Trazodone HCl 50 mg HS PO 06/08/25 22:00 06/09/25 21:44 50 MG Patient Own Medication 1 tab DAILY PO 06/09/25 10:00 UNV Patient Own Medication 4 mg Q5MINP PRN NA 06/08/25 11:45 Lactated Ringer's 1,000 ml @ 100 mls/hr Q10H IV 06/08/25 11:45 06/10/25 11:31 100 MLS/HR Sodium Chloride 10 ml Q8HR IV 06/08/25 14:00 06/10/25 06:09 10 ML Oxycodone/ Acetaminophen 1 tab Q4HP PRN PO 06/08/25 11:45 06/10/25 08:45 1 TAB Hydromorphone HCl 1 mg Q2HP PRN IV 06/08/25 11:45 Docusate Sodium 100 mg Q12HR PO 06/08/25 22:00 06/09/25 21:44 100 MG Morphine Sulfate 2 mg Q30M PRN IV 06/08/25 13:00 Levothyroxine Sodium 75 mcg QAM@0600 PO 06/09/25 06:00 06/10/25 06:08 75 MCG Naloxone HCl 0.4 mg Q10M PRN IV 06/08/25 16:00 06/08/25 16:21 UNV Oxycodone HCl 10 mg ONCE PRN PO 06/08/25 16:00 Nitroglycerin 0.4 mg Q5MINP PRN SL 06/08/25 16:00 Morphine Sulfate 2 mg Q30M PRN IV 06/08/25 16:45 Diphenhydramine HCl 12.5 mg Q4HP PRN IV 06/08/25 16:15 Ondansetron HCl 4 mg Q4HP PRN IV 06/08/25 16:15 Dexamethasone Sodium Phosphate 10 mg ONCE PRN IV 06/08/25 16:15 Acetaminophen 650 mg Q6HP PRN PO 06/09/25 15:30 06/10/25 11:35 650 MG Apixaban 5 mg BIDWM PO 06/09/25 18:00 06/10/25 08:44 5 MG Laboratory Results Laboratory Tests 06/09/25 04:50 06/10/25 04:34 Assessment/Plan Assessment/Plan 80-year-old female with a known history of lumbar spine surgery in the past, 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 1. History of DVT and PE resume Eliquis 2. Hypertension 3. Hypothyroidism 4. Peripheral neuropathy 5. Status post right total hip arthroplasty for degenerative joint disease of the right hip postop day one 6. Previous history of lumbar spine surgery -continue Eliquis, physical therapy evaluation and treatment, discharge plan per Orthopedics. Plan discussed with: Patient My Orders Orders - MARTIN VALDIVIA MD Procedure Category Date Status Time Acetaminophen Tablet PHA 06/09/25 In Process (Tylenol Tablet) 15:30 Apixaban (Eliquis) PHA 06/09/25 In Process 18:00 Date of Service: Jun 10, 2025 Billing Provider: MARTIN VALDIVIA MD Common Visit Codes: NOT BILLABLE MARTIN VALDIVIA MD Jun 10, 2025 14:19
[2025-06-10] MEDS: SERTRALINE HCL 50 MG TAB PO SCH (16:49)
[2025-06-11 01:16] VITALS: BP 120/52; PULSE 62; RESP 17; TEMP 98; O2SAT 94
[2025-06-11 06:05] VITALS: BP 113/53; PULSE 59; RESP 17; TEMP 97.5; O2SAT 95
[2025-06-11 06:14] LABS: Hemoglobin 8.2 g/dL (12.2-16.2)
[2025-06-11 06:17] LABS: Hematocrit 24.8 % (36.0-46.0)
[2025-06-11 07:27] VITALS: PULSE 54
[2025-06-11 09:00] VITALS: BP 132/72; PULSE 67; RESP 18; TEMP 97.6; O2SAT 95
--- NOTE | 2025-06-11 12:28 | DVHPN2 ---
Subjective Patient is feeling better, today agreed to go to retirement facility. 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 Medications Current Medications Medications Dose Ordered Sig/Nalini Route Start Time Stop Time Status Last Admin Dose Admin Furosemide 20 mg DAILY PO 06/09/25 10:00 06/11/25 08:49 20 MG Gabapentin 300 mg TID PO 06/08/25 14:00 06/11/25 06:30 300 MG Latanoprost 1 drop QPM EACHEYE 06/08/25 18:00 06/10/25 18:41 1 DROP Pantoprazole Sodium 40 mg BID PO 06/08/25 22:00 06/11/25 08:49 40 MG Sennosides 8.6 mg DAILY@DINNER PO 06/08/25 17:30 06/09/25 17:30 8.6 MG Trazodone HCl 50 mg HS PO 06/08/25 22:00 06/10/25 21:56 50 MG Patient Own Medication 1 tab DAILY PO 06/09/25 10:00 UNV Patient Own Medication 4 mg Q5MINP PRN NA 06/08/25 11:45 Lactated Ringer's 1,000 ml @ 100 mls/hr Q10H IV 06/08/25 11:45 06/11/25 08:50 100 MLS/HR Sodium Chloride 10 ml Q8HR IV 06/08/25 14:00 06/11/25 06:31 10 ML Oxycodone/ Acetaminophen 1 tab Q4HP PRN PO 06/08/25 11:45 06/11/25 08:47 1 TAB Hydromorphone HCl 1 mg Q2HP PRN IV 06/08/25 11:45 Docusate Sodium 100 mg Q12HR PO 06/08/25 22:00 06/09/25 21:44 100 MG Morphine Sulfate 2 mg Q30M PRN IV 06/08/25 13:00 Levothyroxine Sodium 75 mcg QAM@0600 PO 06/09/25 06:00 06/11/25 06:30 75 MCG Naloxone HCl 0.4 mg Q10M PRN IV 06/08/25 16:00 06/08/25 16:21 UNV Oxycodone HCl 10 mg ONCE PRN PO 06/08/25 16:00 Nitroglycerin 0.4 mg Q5MINP PRN SL 06/08/25 16:00 Morphine Sulfate 2 mg Q30M PRN IV 06/08/25 16:45 Diphenhydramine HCl 12.5 mg Q4HP PRN IV 06/08/25 16:15 Ondansetron HCl 4 mg Q4HP PRN IV 06/08/25 16:15 Dexamethasone Sodium Phosphate 10 mg ONCE PRN IV 06/08/25 16:15 Acetaminophen 650 mg Q6HP PRN PO 06/09/25 15:30 06/11/25 06:35 650 MG Apixaban 5 mg BIDWM PO 06/09/25 18:00 06/11/25 08:40 5 MG Sertraline HCl 100 mg DAILY PO 06/10/25 16:00 06/11/25 08:49 100 MG Laboratory Results Laboratory Tests 06/09/25 04:50 06/11/25 04:58 Assessment/Plan Assessment/Plan 80-year-old female with a known history of lumbar spine surgery in the past, 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 1. History of DVT and PE resume Eliquis 2. Hypertension 3. Hypothyroidism 4. Peripheral neuropathy 5. Status post right total hip arthroplasty for degenerative joint disease of the right hip postop day one 6. Previous history of lumbar spine surgery -continue Eliquis, physical therapy evaluation and treatment, patient has agreed to go to retirement facility. Plan discussed with: Patient My Orders Orders - MARTIN VALDIVIA MD Procedure Category Date Status Time Sertraline Hcl PHA 06/10/25 In Process (Zoloft) 16:00 Date of Service: Jun 11, 2025 Billing Provider: MARTIN VALDIVIA MD Common Visit Codes: NOT BILLABLE MARTIN VALDIVIA MD Jun 11, 2025 12:28
[2025-06-11 13:00] VITALS: BP 156/80; PULSE 62; RESP 17; TEMP 97.6; O2SAT 97
== END 2025-06-11 15:55 | DRG 470 ==
LOC: SUR 06:55 → OVERFLOW 11:42 → UNDOADMIN 11:42 → OVERFLOW 15:56 → TELE-WESTW 20:22
PROVIDERS: ADMIT Orthopaedic Surgery Adult Reconstructive Orthopaedic Surgery; ATTEND Orthopaedic Surgery Adult Reconstructive Orthopaedic Surgery
PROC: 0SR90JZ Replacement of Right Hip Joint with Synthetic Substitute, Open Approach (ICD-10-PCS; principal; 2025-06-08 13:23)
DX: M16.11 Unilateral primary osteoarthritis, right hip (principal); E03.9 Hypothyroidism, unspecified; Z79.01 Long term (current) use of anticoagulants; I10 Essential (primary) hypertension; G62.9 Polyneuropathy, unspecified; Z86.718 Personal history of other venous thrombosis and embolism; Z86.711 Personal history of pulmonary embolism; Z82.5 Family history of asthma and other chronic lower respiratory diseases
CPT/HCPCS: 36415; 72170; 80053; 82565; 84520; 85014; 85018; 86850; 86900; 86901; 97110; 97116; 97163; 97530; G0378; J0131; J0169; J1100; J1885; J2250; J2405; J2704; J3490